=== PATIENT | male | born 1945 | race Caucasian/White ===

== ENCOUNTER 2020-08-25 09:55 | Outpatient (REF) | payer MEDICARE, SELFPAY ==
[2020-08-25 10:48] LABS: Glucose Urine UA NEG (NEG); Leukocyte Esterase Urine 2+ (NEG); Nitrite Urine POS (NEG); PH 6.5 (5.0-8.0); Specific Gravity - Urine 1.025 (1.005-1.025); UACC Culture Trigger YES; Urine Blood TRACE (NEG); Urine Ketones NEG (NEG); Urine Protein NEG (NEG-TRACE)
[2020-08-25 10:49] LABS: Appearance Urine CLOUDY; Color Urine YELLOW
[2020-08-25 10:52] LABS: MANUAL DIFF FLAG NO
[2020-08-25 10:56] LABS: Basophils Absolute Auto 0.1 X10*3/uL (0.0-0.2); Basophils Percent Auto 0.8 % (0-2); Eosinophils Absolute Auto 0.3 X10*3/uL (0.0-0.4); Eosinophils Percent Auto 4.3 % (0-4); Hemoglobin 15.9 g/dl (14.0-18.0); Imm Gran Abs Auto 0.03 X10*3/uL (0.00-0.03); Imm Gran Pct Auto 0.5 % (0.0-0.4); Lymphocytes Absolute Auto 1.7 X10*3/uL (1.2-4.9); Lymphocytes Percent Auto 28.1 % (20-40); Mean Corpuscular HGB Conc 31.8 g/dl (31.0-36.0); Mean Corpuscular Hemoglobin 28.2 pg (27.0-33.0); Mean Corpuscular Volume 88.8 fL (80-98); Mean Platelet Volume 10.3 fL (9.4-12.4); Monocytes Absolute Auto 0.6 X10*3/uL (0.1-1.2); Monocytes Percent Auto 9.8 % (2-11); Neutrophils Absolute Auto 3.4 X10*3/uL (2.0-8.3); Neutrophils Percent Auto 56.5 % (45-73); Platelet Count 198 X10*3/uL (160-400); Red Blood Count 5.63 X10*6/uL (4.60-5.80); Red Cell Distribution Width 14.8 % (11.0-16.0); White Blood Count 6.1 X10*3/uL (4.8-10.8)
[2020-08-25 10:59] LABS: Bacteria Urine 2+ /LPF; RBC Urine 0-2 /HPF (0); WBC Urine TNTC /HPF (0-4)
[2020-08-25 11:18] LABS: Alanine Aminotransferase 32 U/L (0-40); Albumin Level 4.3 g/dL (3.5-5.0); Alkaline Phosphatase 57 U/L (39-117); Anion Gap 12 (12-20); Aspartate Amino Transferase 25 U/L (5-37); Bilirubin Total 1.2 mg/dL (0.0-1.0); Blood Urea Nitrogen 24 mg/dL (9-16); Calcium 9.5 mg/dL (8.4-10.2); Carbon Dioxide 30 mmol/L (22-29); Chloride 105 mmol/L (96-108); Cholesterol 184 mg/dL; Estimated Glomerular Filt Rate > 60; Glucose Fasting 96 mg/dL (60-99); HDL Cholesterol 35 mg/dL; LDL Cholesterol Calculated 129 mg/dl; Potassium 4.1 mmol/L (3.3-5.1); Sodium 143 mmol/L (135-145); Total Protein 7.5 g/dL (6.5-8.0); Triglycerides 100 mg/dL
[2020-08-25 11:41] LABS: Prostate Specific Antigen 2.86 ng/mL (<0.05-4.0); TSH reflex Free T4 1.27 uIU/mL (0.32-4.0); Vitamin D 25-OH Total 24.5 ng/mL (>30)
== END 2020-08-25 09:56 | disposition home or self-care (01) ==
LOC: HO.LAB 09:55
PROVIDERS: PCP Internal Medicine; Visit Provider Internal Medicine
DX: Z00.00 Encounter for general adult medical examination without abnormal findings (principal); E55.9 Vitamin D deficiency, unspecified; E78.00 Pure hypercholesterolemia, unspecified; N40.0 Benign prostatic hyperplasia without lower urinary tract symptoms; I10 Essential (primary) hypertension
CPT/HCPCS: 36415; 80053; 80061; 81001; 81003; 82306; 84153; 84443; 85025; 87086

== ENCOUNTER 2022-11-14 10:33 | Emergency (ER) | payer MEDICARE, SELFPAY ==
[2022-11-14 10:57] VITALS: BP 159/99; PULSE 78; RESP 18; TEMP 36.6; O2SAT 97; BMI 26.1
--- NOTE | 2022-11-14 14:52 | ED_ITS ---
HPI - General Adult General Chief complaint: General Medical Stated complaint: sore throat Time Seen by Provider: 11/14/22 13:12 Source: patient and RN notes reviewed Mode of arrival: ambulatory Limitations: no limitations History of Present Illness HPI narrative: This is a 77-year-old male, with a past medical history of atrial fibrillation, presenting to the emergency department for evaluation of sore throat x3 days. Patient reports that since he has been in the emergency department his symptoms have improved. He states pain with swallowing, denies fevers, chills, cough, shortness of breath, chest pain, abdominal pain, nausea, vomiting, or diarrhea. He states that he took Tylenol for his symptoms which provided him without relief. No other complaints or concerns at this time. MD complaint: Sore throat Onset (ago): day(s) Severity: mild Quality: aching Pain Consistency: constant Relieving factors: none Exacerbating factors: none Associated symptoms: denies other symptoms Treatments prior to arrival: none Related Data Home Medications Medication Instructions Recorded Confirmed No Known Home Meds 10/16/21 10/27/22 Allergies Allergy/AdvReac Type Severity Reaction Status Date / Time No Known Allergies Allergy Verified 10/27/22 09:48 [No Known Allergies*] Review of Systems Review of Systems: Yes all other systems are reviewed and are negative PMFSH Past Medical History Medical History Atrial fibrillation Benign essential hypertension Benign prostatic hyperplasia Hyperlipidemia Hypertension Osteoarthritis of knees, bilateral Overactive bladder Overweight (BMI 25.0-29.9) Persistent atrial fibrillation Vitamin D deficiency Surgical History History of hernia surgery Family History Family History Mother No problems noted. Father No problems noted. Social History Social History Housing: Apartment Alcohol intake: never Patient Tobacco Use Status: Never used Tobacco Smoked in Last 30 Days: No e-Cigarette/Vaping Use: Never Used Second Hand Smoke Exposure: Yes Use of substances other than those prescribed or required for medical reasons: No Advance Directives: No Advance Directives Information Provided: Yes service: No Current occupational status: retired Cognitive needs: No Hearing needs: No Vision needs: Yes Physical Exam ED Vital Signs: Vital Signs - 24 hr 11/14/22 10:57 Temperature 98 F Pulse Rate 78 Respiratory Rate 18 Blood Pressure 159/99 H Pulse Oximetry 97 Oxygen Delivery Method Room Air BMI result Body Mass Index 26.1 Const Other: General: Awake, alert, and oriented X3. No acute distress. HEENT: Normal inspection. TMs are nonerythematous, nonbulging. Auditory canals are normal. Oropharynx mildly erythematous oral pharynx, uvula is midline, airways patent. No tonsillar hypertrophy or exudates. CVS: Normal heart rate and rhythm. Pulses normal. Respiratory: No respiratory distress. Lungs clear to auscultation bilaterally, no wheezes, rales, or Skin: Warm, dry, no rashes noted to exposed skin. Normal skin color. Normal skin turgor. rhonchi. Extremities: Normal to inspection Neuro: Oriented X 3. No motor deficit. No sensory deficit. Medical Decision Making Medical Decision Making MDM Narrative: This is a 77-year-old male presenting to the emergency department for evaluation of sore throat x4 days. On examination, patient has mildly erythematous oral pharynx, uvula is midline, airways patent. No tonsillar hypertrophy or exudates. COVID negative, strep negative. Symptoms likely due to virus, educated on appropriate symptomatic care. Patient understands and agrees with plan. Patient stable for discharge. Differential Diagnosis Differential Diagnoses: The differential diagnosis associated with the presentation includes Pharyngitis, tonsillar abscess, uvulitis, upper respiratory infection Lab Data 11/14/22 11:19 11/14/22 11:19 Labs: Lab Results 11/14/22 11/14/22 11/14/22 Range/Units 11:19 11:19 11:19 WBC 5.9 (4.8-10.8) X10*3/uL RBC 5.34 (4.60-5.80) X10*6/uL Hgb 15.1 (14.0-18.0) g/dl Hct 46.7 (42.0-52.0) % MCV 87.5 (80.0-98.0) fL MCH 28.3 (27.0-33.0) pg MCHC 32.3 (31.0-36.0) g/dl RDW 14.1 (11.0-16.0) % Plt Count 195 (160-400) X10*3/uL MPV 9.7 (9.4-12.4) fL Immature Gran % (Auto) 0.3 (0.0-0.4) % Neut % (Auto) 56.0 (45-73) % Lymph % (Auto) 25.5 (20-40) % Metcalfe % (Auto) 11.1 H (2-11) % Eos % (Auto) 5.7 H (0-4) % Baso % (Auto) 1.4 (0-2) % Lymph # (Auto) 1.5 (1.2-4.9) X10*3/uL Metcalfe # (Auto) 0.7 (0.1-1.2) X10*3/uL Eos # (Auto) 0.3 (0.0-0.4) X10*3/uL Baso # (Auto) 0.1 (0.0-0.2) X10*3/uL Abs Immat Gran (auto) 0.02 (0.00-0.03) X10*3/uL Absolute Neuts (auto) 3.3 (2.0-8.3) x10*3/uL Absolute Nucleated RBC 0.000 (0.0-0.012) X10*3/uL Nucleated RBC % (auto) 0.0 (0.0-0.2) /100WBC Sodium 141 (135-145) mmol/L Potassium 4.1 (3.3-5.1) mmol/L Chloride 107 (96-108) mmol/L Carbon Dioxide 26 (22-29) mmol/L Anion Gap 12 (12-20) BUN 17 H (9-16) mg/dL Creatinine 1.01 (0.5-1.4) mg/dL Estim Creat Clear Calc 60.2 Estimated GFR > 60 Random Glucose 98 (60-115) mg/dL Calcium 9.6 (8.4-10.2) mg/dL COVID-19 (ZOFIA) (Negative) COVID-19 Clin Com S. pyogenes GrpA TASHA Negative (Negative) 11/14/22 Range/Units 15:07 WBC (4.8-10.8) X10*3/uL RBC (4.60-5.80) X10*6/uL Hgb (14.0-18.0) g/dl Hct (42.0-52.0) % MCV (80.0-98.0) fL MCH (27.0-33.0) pg MCHC (31.0-36.0) g/dl RDW (11.0-16.0) % Plt Count (160-400) X10*3/uL MPV (9.4-12.4) fL Immature Gran % (Auto) (0.0-0.4) % Neut % (Auto) (45-73) % Lymph % (Auto) (20-40) % Metcalfe % (Auto) (2-11) % Eos % (Auto) (0-4) % Baso % (Auto) (0-2) % Lymph # (Auto) (1.2-4.9) X10*3/uL Metcalfe # (Auto) (0.1-1.2) X10*3/uL Eos # (Auto) (0.0-0.4) X10*3/uL Baso # (Auto) (0.0-0.2) X10*3/uL Abs Immat Gran (auto) (0.00-0.03) X10*3/uL Absolute Neuts (auto) (2.0-8.3) x10*3/uL Absolute Nucleated RBC (0.0-0.012) X10*3/uL Nucleated RBC % (auto) (0.0-0.2) /100WBC Sodium (135-145) mmol/L Potassium (3.3-5.1) mmol/L Chloride (96-108) mmol/L Carbon Dioxide (22-29) mmol/L Anion Gap (12-20) BUN (9-16) mg/dL Creatinine (0.5-1.4) mg/dL Estim Creat Clear Calc Estimated GFR Random Glucose (60-115) mg/dL Calcium (8.4-10.2) mg/dL COVID-19 (ZOFIA) Negative (Negative) COVID-19 Clin Com See Note S. pyogenes GrpA TASHA (Negative) Discharge Plan Discharge Clinical Impression: Pharyngitis Patient Disposition: Home, Self-Care Instructions: Pharyngitis (ED) Additional Instructions: Your labs were unremarkable. You tested negative for strep today. We tested due for COVID, I will call if your test results are positive. Please drink plenty of fluids get plenty of rest. Hot tea with honey, soups can help. Gargle with salt water. Take Tylenol as needed for pain. If any new or worsening symptoms occur including but not limited to worsening sore throat, difficulty breathing, difficulty swallowing, please return for re- evaluation. Prescriptions: No Action No Known Home Meds Interventions: ED Discharge Assessment Last Done: 11/14/22 15:05 Discharge Date/Time: 11/14/22 15:09
== END 2022-11-14 15:09 | disposition home or self-care (01) ==
PROVIDERS: Emergency Provider Emergency Medicine; PCP Internal Medicine
DX: J02.9 Acute pharyngitis, unspecified (principal); Z20.822 Contact with and (suspected) exposure to COVID-19; Z20.828 Contact with and (suspected) exposure to other viral communicable diseases; Z79.899 Other long term (current) drug therapy
CPT/HCPCS: 36415; 80048; 85025; 87635; 87651; 99283

== ENCOUNTER 2023-03-25 18:13 | Emergency (ER) | payer MEDICARE, SELFPAY ==
[2023-03-25 18:26] VITALS: BP 155/106; PULSE 90; RESP 16; TEMP 36.9; O2SAT 98; BMI 26.9
--- NOTE | 2023-03-25 18:31 | ED.URI ---
HPI - URI/Sore Throat General Chief Complaint: Upper Respiratory Symptoms Stated Complaint: cough, phlegmy, cold Related Data Home Medications Medication Instructions Recorded Confirmed No Known Home Meds 10/16/21 10/27/22 Allergies Allergy/AdvReac Type Severity Reaction Status Date / Time No Known Allergies Allergy Verified 10/27/22 09:48 [No Known Allergies*] [facility] Past Medical History Medical History Atrial fibrillation Benign essential hypertension Benign prostatic hyperplasia Hyperlipidemia Hypertension Osteoarthritis of knees, bilateral Overactive bladder Overweight (BMI 25.0-29.9) Persistent atrial fibrillation Vitamin D deficiency Surgical History History of hernia surgery Family History Family History Mother No problems noted. Father No problems noted. Social History Social History Housing: Apartment Alcohol intake: never Patient Tobacco Use Status: Never used Tobacco e-Cigarette/Vaping Use: Never Used Second Hand Smoke Exposure: Yes Advance Directives: No Advance Directives Information Provided: No service: No Current occupational status: retired Cognitive needs: No Hearing needs: No Vision needs: Yes Physical Exam Vital Signs: Vital Signs: Last Vital Signs Temp 98.4 F 03/25/23 18:26 Pulse 90 03/25/23 18:26 Resp 16 03/25/23 18:26 BP 155/106 H 03/25/23 18:26 Pulse Ox 98 03/25/23 18:26 O2 Del Method Room Air 03/25/23 18:26 BMI result Body Mass Index 26.9 Course Course Course Narrative: This is an RME: Additional HPI, ROS, PE not included below will be deferred to primary provider. This is a [id number] presenting to the emergency department with complaints of right earache, sore throat, productive cough since yesterday. Vital signs within normal limits. Oropharynx is mildly erythematous, no tonsillar hypertrophy or exudates. Uvula is midline. Further ER evaluation needed. Patient is well-appearing. Plan: Viral swabs, strep test Medical Decision Making Lab Data Labs: Lab Results 03/25/23 Range/Units 18:37 S. pyogenes GrpA TASHA Negative (Negative) Discharge Plan Discharge Prescriptions: No Action No Known Home Meds
[2023-03-25 18:50] LABS: IDNOW Serial# 08D9AD1C; Strep A Nucleic Acid Negative (Negative)
[2023-03-25 19:19] LABS: Influenza A PCR NEGATIVE (Negative); Influenza B PCR NEGATIVE (Negative); Resp Syncy Virus RNA Qual PCR NEGATIVE (Negative); SARS COV2 PCR INHOUSE POSITIVE (Negative)
--- NOTE | 2023-03-25 19:36 | ECG_ITS ---
Test Reason : DYSPNEA Blood Pressure : / mmHG Vent. Rate : 089 BPM Atrial Rate : 000 BPM P-R Int : 000 ms QRS Dur : 080 ms QT Int : 352 ms P-R-T Axes : 000 -28 040 degrees QTc Int : 428 ms Atrial fibrillation Abnormal ECG When compared with ECG of 04-FEB-2017 09:52, QT has shortened Referred By: Lucas Chaudhry Electronically Signed By:VINITA STOVER MD
--- NOTE | 2023-03-25 19:39 | ED.GENADULT ---
HPI - General Adult General Chief complaint: Upper Respiratory Symptoms Stated complaint: cough, phlegmy, cold Time Seen by Provider: 03/25/23 19:16 History of Present Illness HPI narrative: Patient is 78-year-old male who has had cold symptoms for about 24 hours. He has had a runny nose with clear nasal discharge. Mild cough. No particular sore throat. He does not know if he has had a fever. He feels mildly run down. Patient has a history of atrial fibrillation and he says he has been prescribed antihypertensive medications in the past but currently is not taking any medications for any medical problem. He says ?I march to a different drummer. ? Related Data Previous Rx's Medication Instructions Recorded nirmatrelvir 300 mg (150 mg See Rx Instructions PO .COMPLEX 03/25/23 x2)-ritonavir 100 mg tablet,dose #30 ea pack (Paxlovid) Allergies Allergy/AdvReac Type Severity Reaction Status Date / Time No Known Allergies Allergy Verified 10/27/22 09:48 [No Known Allergies*] Review of Systems Review of Systems: Yes all other systems are reviewed and are negative [facility] Past Medical History Medical History Atrial fibrillation Benign essential hypertension Benign prostatic hyperplasia Hyperlipidemia Hypertension Osteoarthritis of knees, bilateral Overactive bladder Overweight (BMI 25.0-29.9) Persistent atrial fibrillation Vitamin D deficiency Surgical History History of hernia surgery Family History Family History Mother No problems noted. Father No problems noted. Social History Social History Housing: Apartment Alcohol intake: never Patient Tobacco Use Status: Never used Tobacco e-Cigarette/Vaping Use: Never Used Second Hand Smoke Exposure: Yes Advance Directives: No Advance Directives Information Provided: No service: No Current occupational status: retired Cognitive needs: No Hearing needs: No Vision needs: Yes Physical Exam ED Vital Signs: Vital Signs - 24 hr 03/25/23 18:26 03/25/23 20:00 03/25/23 21:06 Temperature 98.4 F 99.8 F Pulse Rate 90 75 92 Respiratory Rate 16 20 16 Blood Pressure 155/106 H 190/106 H 184/106 H Pulse Oximetry 98 99 97 Oxygen Delivery Method Room Air Room Air Room Air BMI result Body Mass Index 26.9 Const Other: The patient is awake and alert. He does not appear acutely ill. He was blowing his nose occasionally and had clear nasal discharge. He did not seem short of breath. HENMT Other: Posterior pharynx unremarkable. Mucous membranes moist Eyes Other: Pupils are round equal, conjunctivae are clear, extraocular movements intact. Neck Other: Patient has some mild cervical adenopathy more prominent on the left side. Lymph nodes are mildly tender. Resp Other: Lungs are clear bilaterally. No increased work of breathing. Cardio Other: The patient has an irregular rate and rhythm. No definite murmur. GI Other: Abdomen is soft and nontender Skin Other: No rash Neuro Other: The patient is awake and alert. Face is symmetrical. Speech is clear. Moving all 4 extremities normally. Patient seems grossly neurologically intact. Extrem Other: No peripheral edema Medical Decision Making Medical Decision Making [facility] Narrative: The patient is a 78-year-old male who has a history of atrial fibrillation but is on no medications by his own choice. He now presents with 24 hours of respiratory symptoms and tested positive for COVID. His GFR is greater than 60. Clinically he looks well. He would like to be treated with Paxlovid. Since he is on no medications there will be no medication contraindications or changes to be made. His renal function is sufficient for full strength dosage. I have sent a prescription to the 24 hour pharmacy at [facility] on [address] in [place] as he would like to start this medication as soon as possible. The patient is here with his who also has COVID. Lab Data 03/25/23 20:07 Labs: Lab Results 03/25/23 03/25/23 Range/Units 18:37 20:07 Sodium 140 (135-145) mmol/L Potassium 3.9 (3.3-5.1) mmol/L Chloride 103 (96-108) mmol/L Carbon Dioxide 29 (22-29) mmol/L Anion Gap 12 (12-20) BUN 17 H (9-16) mg/dL Creatinine 1.07 (0.5-1.4) mg/dL Estim Creat Clear Calc 54.1 Estimated GFR > 60 Random Glucose 96 (60-115) mg/dL Calcium 9.8 (8.4-10.2) mg/dL Influenza Type A (PCR) NEGATIVE (Negative) Influenza Type B (PCR) NEGATIVE (Negative) RSV RNA Qual (PCR) NEGATIVE (Negative) SARS-CoV-2 RNA (RT-PCR) POSITIVE A (Negative) S. pyogenes GrpA TASHA Negative (Negative) Discharge Plan Discharge Clinical Impression: COVID Patient Disposition: Home, Self-Care Instructions: COVID-19 (Coronavirus Disease 2019) (ED) Additional Instructions: You have tested positive for COVID today. I have sent prescription for the anti COVID medication Paxlovif to a 24 hour pharmacy. This is the [facility] on [address] in [place]. please warehouse order picker the prescription this evening so that you can start this medication promptly. Please take the medication 2 times a day (approximately every 12 hours). Drink a lot of fluids. Stay in touch with your regular doctor for additional advice as needed. Return to the emergency room if significantly worse. Prescriptions: New Paxlovid 300 mg (150 mg x 2)-100 mg tablets,dose pack See Rx Instructions .ROUTE .COMPLEX Qty: 30 0RF Rx Instructions: take TWO 150 mg tablets of nirmatrelvir with ONE 100 mg tablet of ritonavir twice daily for 5 days Referrals: Rudy Mathis MD [Primary Care Provider] - Interventions: ED Discharge Assessment Last Done: 03/25/23 21:15
[2023-03-25 20:00] VITALS: BP 190/106; PULSE 75; RESP 20; O2SAT 99
--- NOTE | 2023-03-25 20:21 | PC.NURSE ---
Pt resting, unlabored resp, skin pwd, LS CTA. no cough, aware of plan for labs and paxlovid.
[2023-03-25 20:31] LABS: Anion Gap 12 (12-20); Blood Urea Nitrogen 17 mg/dL (9-16); Calcium 9.8 mg/dL (8.4-10.2); Carbon Dioxide 29 mmol/L (22-29); Chloride 103 mmol/L (96-108); Creatinine Clr Calc Pharmacy 54.1; Estimated Glomerular Filt Rate > 60; Glucose Random 96 mg/dL (60-115); Potassium 3.9 mmol/L (3.3-5.1); Sodium 140 mmol/L (135-145)
[2023-03-25 21:06] VITALS: BP 184/106; PULSE 92; RESP 16; TEMP 37.7; O2SAT 97
== END 2023-03-25 21:43 | disposition home or self-care (01) ==
PROVIDERS: Physician Assistant Medical; Emergency Provider Emergency Medicine; PCP Internal Medicine
DX: U07.1 COVID-19 (principal); I48.91 Unspecified atrial fibrillation; R06.02 Shortness of breath; R05.9 Cough, unspecified; R09.89 Other specified symptoms and signs involving the circulatory and respiratory systems; Z79.899 Other long term (current) drug therapy
CPT/HCPCS: 0241U; 36415; 80048; 87651; 93005; 99283; 99284

== ENCOUNTER 2023-04-21 07:01 | Outpatient (REF) | payer MEDICARE, SELFPAY ==
[2023-04-21 07:16] LABS: MANUAL DIFF FLAG NO
[2023-04-21 07:51] LABS: Basophils Absolute Auto 0.1 X10*3/uL (0.0-0.2); Basophils Percent Auto 1.3 % (0-2); Eosinophils Absolute Auto 0.4 X10*3/uL (0.0-0.4); Eosinophils Percent Auto 5.4 % (0-4); Hematocrit 47.4 % (42.0-52.0); Hemoglobin 15.6 g/dl (14.0-18.0); Imm Gran Abs Auto 0.03 X10*3/uL (0.00-0.03); Imm Gran Pct Auto 0.4 % (0.0-0.4); Lymphocytes Absolute Auto 2.1 X10*3/uL (1.2-4.9); Lymphocytes Percent Auto 29.5 % (20-40); Mean Corpuscular HGB Conc 32.9 g/dl (31.0-36.0); Mean Corpuscular Hemoglobin 29.1 pg (27.0-33.0); Mean Corpuscular Volume 88.3 fL (80.0-98.0); Mean Platelet Volume 10.4 fL (9.4-12.4); Monocytes Absolute Auto 0.8 X10*3/uL (0.1-1.2); Monocytes Percent Auto 11.7 % (2-11); Neutrophils Absolute Auto 3.7 x10*3/uL (2.0-8.3); Neutrophils Percent Auto 51.7 % (45-73); Platelet Count 208 X10*3/uL (160-400); Red Blood Count 5.37 X10*6/uL (4.60-5.80); Red Cell Distribution Width 14.8 % (11.0-16.0); White Blood Count 7.1 X10*3/uL (4.8-10.8)
[2023-04-21 08:28] LABS: Alanine Aminotransferase 24 U/L (0-40); Albumin Level 4.1 g/dL (3.5-5.0); Alkaline Phosphatase 64 U/L (39-117); Anion Gap 12 (12-20); Aspartate Amino Transferase 20 U/L (5-37); Bilirubin Total 0.6 mg/dL (0.0-1.0); Blood Urea Nitrogen 19 mg/dL (9-16); Calcium 9.5 mg/dL (8.4-10.2); Carbon Dioxide 27 mmol/L (22-29); Chloride 106 mmol/L (96-108); Cholesterol 177 mg/dL (<200); Estimated Glomerular Filt Rate > 60; Glucose Fasting 108 mg/dL (60-99); HDL Cholesterol 33 mg/dL (>40); LDL Cholesterol Calculated 120 mg/dL (<100); Potassium 4.1 mmol/L (3.3-5.1); Sodium 141 mmol/L (135-145); Total Protein 7.8 g/dL (6.5-8.0); Triglycerides 120 mg/dL (<150)
[2023-04-21 08:29] LABS: TSH reflex Free T4 2.13 uIU/mL (0.32-4.0); Vitamin D 25-OH Total 28.5 ng/mL (>30)
[2023-04-21 08:45] LABS: Folate 5.8 ng/mL (> or = 4.0); Prostate Specific Antigen Scr 5.34 ng/mL (<0.05-4.0); Vitamin B12 665 pg/mL (200-900)
[2023-04-21 09:02] LABS: Appearance Urine Turbid; Color Urine Yellow; Glucose Urine UA Negative (Negative); Leukocyte Esterase Urine Large (3+) (Negative); Nitrite Urine Negative (Negative); UMIC TRIGGER UACC YES; Urine Blood Small (1+) (Negative); Urine Ketones Negative (Negative); Urine Protein 100 (2+) mg/dL (Neg-Trace)
[2023-04-21 10:18] LABS: Bacteria Urine 4+ (None Seen); Squamous Epithelial Cell Urine 0-2 /HPF (0-2); UACC Culture Trigger YES; WBC Urine >50 /HPF (0-5)
== END 2023-04-21 07:02 | disposition home or self-care (01) ==
LOC: HO.LAB 07:01
PROVIDERS: PCP Internal Medicine; Visit Provider Internal Medicine
DX: Z00.00 Encounter for general adult medical examination without abnormal findings (principal); Z12.5 Encounter for screening for malignant neoplasm of prostate; E78.00 Pure hypercholesterolemia, unspecified; E53.8 Deficiency of other specified B group vitamins; I48.91 Unspecified atrial fibrillation; I10 Essential (primary) hypertension; E55.9 Vitamin D deficiency, unspecified; R30.0 Dysuria
CPT/HCPCS: 36415; 80053; 80061; 81001; 81003; 82306; 82607; 82746; 84153; 84443; 85025; 87086

== ENCOUNTER 2023-04-28 09:04 | Outpatient (AMB) | payer MEDICARE, SELFPAY ==
--- NOTE | 2023-04-28 09:09 | A.OFFPC_ITS ---
Vital Signs 04/28/23 09:10 Height 5 ft 8 in Weight 174 lb BMI 26.5 BP 158/102 H Blood Pressure Location Lt brachial Position Sitting Pulse 81 Pulse Source Pulse Oximeter Pulse Oximetry (%) 97 Oxygen Delivery Method Room Air Intake Visit Reasons: atrial fibrillation, HTN Food And Beverage Outlets Manager Required: No Accompanied by: Self / Same As Patient Allergies No Known Allergies [No Known Allergies*] Allergy (Verified 04/28/23 09:48) Medication List - Last Reconciled 04/28/23 by Rudy Mathis MD No Known Home Meds Tobacco use date assessed: 04/28/23 Fall risk assessment: No Falls in past year Last assessed Fall Risk: 04/28/23 Dental Screening Dental Screen Date: 04/28/23 Did you have a dental visit in the last 12 months?: No Did you have a dental problem in the last 6 months where you did not have access to dental care?: No Was dental information given to patient?: No HPI atrial fibrillation, HTN HPI Details Patient comes in today for his follow up visit States that he has been experiencing some urinary frequency and nocturia for the past few weeks; denies any dysuria Reports that he has been under some stress lately in helping deal with his 's psychiatric issues Relates occasional dizziness but denies any headaches He denies any chest pains, no shortness of breath No nausea /vomiting, no abdominal pain No change in bowel habits noted Had his follow-up labs done last week - to discuss his results [facility] Medical History (Updated 04/28/23 @ 09:58 by Rudy Mathis MD) Overweight (BMI 25.0-29.9) Vitamin D deficiency Osteoarthritis of knees, bilateral Persistent atrial fibrillation Benign essential hypertension Overactive bladder Benign prostatic hyperplasia Hyperlipidemia Surgical History History of hernia surgery Family History Mother No problems noted. Father No problems noted. Social History Housing: Apartment Alcohol intake: never Patient Tobacco Use Status: Never used Tobacco e-Cigarette/Vaping Use: Never Used Second Hand Smoke Exposure: Yes service: No Current occupational status: retired Cognitive needs: No Hearing needs: No Vision needs: Yes Questionnaire PHQ-9 Over the last 2 weeks, how often have you been bothered by any of the following problems? 1. Little interest or pleasure in doing things: not at all 2. Feeling down, depressed, or hopeless: not at all 3. Trouble falling or staying asleep, or sleeping too much: not at all 4. Feeling tired or having little energy: not at all 5. Poor appetite or overeating: not at all 6. Feeling bad about yourself - or that you are a failure or have let yourself or your family down: not at all 7. Trouble concentrating on things, such as reading the newspaper or watching television: not at all 8. Moving or speaking so slowly that other people could have noticed. Or the opposite - being so fidgety or restless that you have been moving around a lot more than usual: not at all 9. Thoughts that you would be better off or of hurting yourself in some way: not at all Total score: 0 Depression Screening Interpretation: Negative Depression Screening Done: Yes 47418 - PHQ-9 Billing: Yes Source: Developed by Drs. Santo Hayes, Carol Valdovinos, Navi Heard and colleagues, with an educational caroline from [employer]. Thrive Questionnaire Date Thrive assessed: 04/28/23 I am a: Patient What is your living situation today?: I have a steady place to live Within the past 12 months, did the food you bought not last and you didn't have the money to get more?: Never true Within the past 12 months, did you worry whether your food would run out before you got money to buy more?: Never true Do you have trouble paying for medicines?: No Do you have trouble getting transportation to medical appointments?: No Do you have trouble paying your heating and electricity bill?: No Do you have trouble taking care of your child, family member or friend?: No Do you have trouble with day-to-day activities such as bathing, preparing meals, shopping, managing finances, etc.?: No Are you currently unemployed and looking for a job?: No Are you interested in more education?: No Please select the resources that you would like help with: None Currently or been in a relationship where the following occur: no concerns reported AUDIT C Alcohol Use Questionnaire (AUDIT-C) 1. How often do you have a drink containing alcohol?: Never 3. How often do you have six or more drinks on one occasion?: Never Total Score: 0 Score Reviewed/Action Taken: Yes VERNON-7 AMB Questionnaire VERNON-7 Date VERNON - 7 assessed: 04/28/23 Feeling nervous, anxious, or on edge: 0 = Not at all Not being able to stop or control worryin = Not at all Worrying too much about different things: 0 = Not at all Trouble relaxin = Not at all Being so restless that it is hard to sit still: 0 = Not at all Becoming easily annoyed or irritable: 0 = Not at all Feeling afraid as if something awful might happen: 0 = Not at all Total VERNON-7 score (0-4 normal; 5-9 mild; 10-14 moderate; 15-21 severe): 0 Source: Developed by Drs. Santo Hayes, Carol Valdovinos, Navi Heard and colleagues, with an educational caroline from [employer]. Review of Systems Const Denies chills, Reports fatigue, Denies fever(s) and Denies headache(s) ENT Denies dysphagia, Reports dizziness (on and off), Denies otalgia, Denies headache(s), Denies neck pain, Denies odynophagia and Denies sore throat Card Denies chest pain, Denies palpitations and Denies dyspnea Resp Denies cough and Denies dyspnea GI Denies abdominal pain, Denies constipation, Denies dysphagia, Denies heartburn, Denies diarrhea, Denies nausea, Denies odynophagia and Denies vomiting Denies difficulty urinating, Denies dysuria, Reports nocturia and Reports urinary frequency Musc Denies neck pain Skin/Breast Denies rash Neuro Reports dizziness (on and off) and Denies headache(s) Endo Reports fatigue and Denies palpitations Physical exam (Primary Care) Vital Signs: Last Vital Signs Pulse 81 04/28/23 09:10 BP 158/102 H 04/28/23 09:10 Pulse Ox 97 04/28/23 09:10 Oxygen Delivery Method Room Air 04/28/23 09:10 BMI result Body Mass Index 26.5 Tobacco/Smoking Status: Tobacco use Status Tobacco use date assessed 04/28/23 04/28/23 09:17 Patient Tobacco Use Status Never used Tobacco 04/28/23 09:17 e-Cigarette/Vaping Use Never Used 04/28/23 09:17 PHQ-9: PHQ-9 Score PHQ-9: Total score 0 04/28/23 09:51 Depression Screening Interpretation: Negative Thrive Assessment: Date of Thrive Assessment Date Thrive assessed 04/28/23 04/28/23 09:17 Currently or been in a relationship where the following occur: no concerns reported Const General: no acute distress and alert HENMT Ears: TM's normal bilaterally and EAC's normal Throat: Yes posterior oropharynx normal and Yes tonsils normal (no TP congestion) Neck Neck: Yes no lymphadenopathy and Yes supple Thyroid: Thyroid normal Resp Auscultation: clear to auscultation bilaterally, no rales and no wheezes Cardio Rate: regular rate Rhythm: abnormal rhythm irregularly irregular Heart sounds: no murmurs GI Palpation (GI): Soft to palpation and nontender Auscultation: normal bowel sounds General: Yes no CVA tenderness Back/Spine/Pelvis Back: no CVA tenderness Skin Rashes: no rashes Extrem General: Yes no clubbing, cyanosis or edema Results Reviewed Results Reviewed: Laboratory Tests 04/21/23 04/21/23 04/21/23 07:06 07:14 07:14 WBC 7.1 Hgb 15.6 Hct 47.4 Plt Count 208 Sodium 141 Potassium 4.1 Creatinine 1.00 Estimated GFR > 60 Fasting Glucose 108 H Calcium 9.5 AST 20 ALT 24 Triglycerides 120 Cholesterol 177 LDL Cholesterol, Calc 120 H HDL Cholesterol 33 L PSA Screen 5.34 H Vitamin B12 665 25-OH Vitamin D Total 28.5 L TSH 2.13 Ur Specific [place] 1.020 Urine Protein 100 (2+) H Urine Glucose (UA) Negative Urine Blood Small (1+) H Assessment and Plan Assessment & Plan (1) Persistent atrial fibrillation: Code(s): I48.19 - Other persistent atrial fibrillation Plan: Patient is currently still in atrial fibrillation Has declined taking Rx in the past, including anticoagulants and beta blockers Was on low dose Aspirin daily at one point but he also self-discontinued it although he is now amenable to starting on meds again Will send him for repeat echocardiogram for follow up; echocardiogram done back in 2017 showed a mildly increased left ventricular wall thickness, with visually estimated EF between 60 to 65%, mild biatrial enlargement, mild aortic r egurgiation, mild mitral regurgitation and normal right ventricular systolic pressure He currently has a [id number] score of 3 so anticoagulation is indicated He is now agreeable to starting on Rx as long as it is covered on insurance - will start him on Apixaban 2.5 mg BID He declines offer to start him back on a beta martinez at this time (2) Elevated PSA: Code(s): R97.20 - Elevated prostate specific antigen [PSA] Plan: Results of his labs done last week reviewed and discussed with patient - advised that his PSA has effectively doubled from a couple of years ago and is now >5.0 As he has also been experiencing some urinary symptoms, mostly nocturia/urinary frequency, for a while now, will refer him to urology for further evaluation and management Will also start him in the meantime on Tamsulosin 0.4 mg Q HS (3) Benign essential hypertension: Code(s): I10 - Essential (primary) hypertension Plan: His BP is currently elevated Reinforced low sodium diet - goal is systolic BP of at least 130 to 140 mm or less Patient is presently not on any Rx for his BP (by choice) - patient recalls that he felt worse when he was started on Rx for his blood pressure in the past and he prefers to continue controlling his BP without Rx as much as possible (4) Osteoarthritis of knees, bilateral: Code(s): M17.0 - Bilateral primary osteoarthritis of knee Qualifiers: Osteoarthritis type: primary Qualified Code(s): M17.0 - Bilateral primary osteoarthritis of knee Plan: States that his knee pain remain mostly manageable and he just takes some OTC Tylenol as needed with (+) relief No other intervention is needed or requested for at this time (5) Vitamin D deficiency: Code(s): E55.9 - Vitamin D deficiency, unspecified Plan: Was on Vitamin D3 1000 units daily in the past but patient stopped taking this a while back Advised that his Vitamin D level is still low on his recent labs and he should consider starting back on some OTC Vitamin D supplements daily (6) Overweight (BMI 25.0-29.9): Code(s): E66.3 - Overweight Plan: Reinforced diet/exercise as tolerated/lose weight Plan Follow up in 3 months Orders: Orders CA echo transthoracic complete 04/28/23 I48.19 - Other persistent atrial fibrillation Referrals Urology Referral R35.0 - Frequency of micturition, R97.20 - Elevated prostate specific antigen [PSA] Medications: New tamsulosin 0.4 mg PO BEDTIME 90 days 90 caps 1RF N40.1 - Benign prostatic hyperplasia with lower urinary tract symptoms, R35.1 - Nocturia Eliquis (apixaban) 2.5 mg PO BID 30 days 60 tabs 3RF NS I48.19 - Other persistent atrial fibrillation Coding Level of Care Code Est Pt Level 4 (68976) Diagnoses Persistent atrial fibrillation I48.19 Elevated PSA R97.20 Benign essential hypertension I10 Primary osteoarthritis of both knees M17.0 Osteoarthritis type: primary Vitamin D deficiency E55.9 Overweight (BMI 25.0-29.9) E66.3
[2023-04-28 09:10] VITALS: BP 158/102; PULSE 81; O2SAT 97; BMI 26.5
== END 2023-04-28 10:03 | disposition home or self-care (01) ==
PROVIDERS: PCP Internal Medicine; Visit Provider Internal Medicine
DX: I48.19 Other persistent atrial fibrillation (principal); R97.20 Elevated prostate specific antigen [PSA]; I10 Essential (primary) hypertension; M17.0 Bilateral primary osteoarthritis of knee; E55.9 Vitamin D deficiency, unspecified; E66.3 Overweight
CPT/HCPCS: 99214

== ENCOUNTER → 2023-05-17 12:54 | Outpatient (REF) | payer MEDICARE, SELFPAY ==
--- NOTE | 2023-05-17 12:57 | CA_ITS ---
Transthoracic Echocardiogram Patient (Last, First, Middle): Lane Raya E Gender: Male Date of : 1945 Age: 78 Procedure Date: 05/17/2023 Procedure Type: Transthoracic Echocardiogram Location: OP Height: 172.72 cm Weight: 79.38 kg BSA: 1.93 m2 Heart Rate: bpm BP: 166 / 90 mmHg Senior Core Java Developer: TO Referring MD: Rudy Mathis MD Digital Strategy Manager: Nomi Cullen MD Symptoms: I48.19 - Other persistent atrial fibrillation Study Quality: Fair Conclusions: - 1. Normal LV ejection fraction 55-60% 2. Mildly dilated left atrium 3. Mild aortic regurgitation 4. Mildly dilated ascending aorta 3.8 cm 5. Normal RV systolic pressure with mildly elevated right atrial pressures 6. No gross pericardial effusion Findings Left Ventricle Normal left ventricular size, thickness, and systolic function. The visually estimated ejection fraction is between 55-60%. Diastolic function is indeterminate on the basis of available data. Right Ventricle Normal right ventricular cavity size and systolic function. Atria The left atrium is mildly dilated. There is no evidence of interatrial shunt. The right atrium is likely dilated. Aortic Valve There is mild calcification of the aortic valve. There is no aortic valve stenosis. There is mild aortic valve regurgitation. Mitral Valve There is mild anterior and posterior mitral leaflet thickening. There is trace mitral valve regurgitation. There is no mitral valve stenosis. Pulmonic Valve The pulmonic valve is likely normal. There is trace pulmonic valve regurgitation. Tricuspid Valve Normal tricuspid valve structure. There is mild tricuspid valve regurgitation. The right ventricular systolic pressure is normal. The right ventricular systolic pressure is 28 mmHg. Mildly elevated right atrial pressure. There is no evidence of pulmonary hypertension. Great Vessels The pulmonary artery was not well visualized. There is mild dilatation of the ascending aorta measuring 3.80 cm. Venous The inferior vena cava is mildly dilated and collapses greater than 50% with inspiration. Pericardium/Pleural There is no evidence of pericardial effusion. Prior Study Comparison Changes noted compared to prior study dated: 02/15/2017. Ascending aorta is mildly enlarged Measurements 2D Linear Measurements IVSd: 1.36 0.6-0.9/0.6-1.0 cm LVIDd: 3.72 3.9-5.3/4.2-5.9 cm LVIDd Index: 1.93 2.4-3.2/2.2-3.1 cm/m2 LVIDs: 2.62 2.0-3.6 cm LVPWd: 1.03 0.7-1.1 cm LA Diam: 3.60 2.7-3.8/3.0-4.0 cm LAIDs Index: 1.87 1.5-2.3 cm/m2 LV Mass: 183.69 67-162/88-224 g LV Mass Index: 95.17 43-95/49-115 g/m2 LVOT Diam: 2.10 3.0+(-)1.3 cm 2D Systolic Function EF 4C: 57.90 >55% EF 2C: 57.60 >55% EF BiP: 58.90 >55% Mitral Valve MV Pk E: 0.75 MV Decel Time: 195.00 E'Lateral: 7.14 E'Medial: 7.07 E/E' Med: 10.70 E/E' Lat: 10.60 PHT: 57.00 MVA PHT: 3.86 Decel [place]: 3.90 Aortic Valve AoV Pk Xander: 1.11 AoV Pk Grad: 5.00 LVOT LVOT Pk Xander: 0.67 LVOT Mn Xander: 0.47 LVOT VTI: 0.14 LVOT Pk Grad: 2.00 LVOT Mn Grad: 1.00 LVOT Diam: 2.10 LVOT Area: 3.46 Diastolic Function MV Pk E: 0.75 E'Medial: 7.07 E/E' Med: 10.70 E' Laterial: 7.14 E/E' Lat: 10.60 Right Ventricle TAPSE (mm): 16.70 TVS' Xander: 10.50 Tricuspid Valve TR Pk Xander: 2.23 TR Pk Grad: 20.00 RA Press: 8.00 RVSP: 28.00 Great Vessels Aorta Sinus of Valsalva: 3.16 2.0-3.[address] [place]: 3.00 1.7-3.4 cm Ao Asc: 3.80 2.1-3.4 cm Updated in Other Vendor System with Status of Final Nomi Cullen MD electronically signed on 05/18/2023 4:15:06 PM with status of Final
== END ==
LOC: HO.CARD 12:54
PROVIDERS: PCP Internal Medicine; Visit Provider Internal Medicine
DX: I48.19 Other persistent atrial fibrillation (principal)
CPT/HCPCS: 93306

== ENCOUNTER → 2023-05-17 12:57 | Outpatient (BNV) | payer MEDICARE, SELFPAY | PROVIDERS: PCP Internal Medicine; Visit Provider Internal Medicine Cardiovascular Disease | DX: I35.1 Nonrheumatic aortic (valve) insufficiency (principal); I48.19 Other persistent atrial fibrillation | CPT/HCPCS: 93306 ==

== ENCOUNTER 2023-06-08 11:08 | Outpatient (REF) | payer MEDICARE, SELFPAY | END 2023-06-08 11:09 | disposition home or self-care (01) | LOC: HO.LNP 11:08 | PROVIDERS: PCP Internal Medicine; Visit Provider Nurse Practitioner Family | DX: N39.0 Urinary tract infection, site not specified (principal); R97.20 Elevated prostate specific antigen [PSA] | CPT/HCPCS: 51798; 81003; 87086; 99202 ==

== ENCOUNTER 2023-06-08 11:08 | Outpatient (AMB) | payer MEDICARE, SELFPAY ==
--- NOTE | 2023-06-08 11:08 | MHC.OFFVIS ---
Intake Intake Visit Reasons: Elevated PSA/frequency of micturition Intake Note: New Patient presents for initial visit Elevated PSA and Urinary Frequency Last PSA: 04/21/23 (5.34) Urology Medications: Tamsulosin Blood Thinner: Eliquis PVR: 18ml's Certified Surgical Technician Required: No Accompanied by: Self / Same As Patient Allergies No Known Allergies [No Known Allergies*] Allergy (Verified 06/08/23 21:06) Medication List - Last [facility] (Blood Pressure Kit) As directed Eliquis (apixaban) 2.5 mg PO BID 30 days NS sulfamethoxazole-trimethoprim 800-160 mg (Bactrim DS) 1 tab PO BID 7 days tamsulosin 0.4 mg PO BEDTIME 90 days HPI HPI Comments History of Present Illness Details Lane is a very pleasant 78-year-old male patient of Dr. Mathis. He has a PMH of vitamin-D deficiency, osteoarthritis, atrial fibrillation, and hyperlipidemia. He presents to the office today as a new patient for a patient today. PSA 04/30--5.3. Discussed at length potential causes for elevated PSA. He reports having been on Flomax for lower urinary tract symptoms and feels this has been helpful. In office urinalysis results reviewed with the patient today. 3+ leukocytes positive nitrates. When asked he denies any UTI like symptoms. He denies urinary urgency, urinary frequency, incontinence, nocturia, hematuria, dysuria, foul smelling urine, changes to urinary stream, flank pain, fever, and or chills. He is happy with his current voiding parameters on 0.4mg of flomax daily. Discussed awaiting redraw of PSA given potential urinary tract infection and likely to be elevated. Discussed obtaining retroperitoneal ultrasound for further assessment evaluation. PVR 18 mL. Discussed at length potential causes for urinary tract infection. He otherwise offers no other issues or concerns at this time. FORMERLY [facility], [facility] Medical History Overweight (BMI 25.0-29.9) Vitamin D deficiency Osteoarthritis of knees, bilateral Persistent atrial fibrillation Benign essential hypertension Overactive bladder Benign prostatic hyperplasia Hyperlipidemia Surgical History History of hernia surgery Family History Mother No problems noted. Father No problems noted. Social History Housing: Apartment Alcohol intake: never Patient Tobacco Use Status: Never used Tobacco e-Cigarette/Vaping Use: Never Used Second Hand Smoke Exposure: Yes service: No Current occupational status: retired Cognitive needs: No Hearing needs: No Vision needs: Yes Review of Systems Const Reports no additional complaints Eyes Reports no additional complaints ENT Reports no additional complaints Card Reports as per HPI Resp Reports no additional complaints GI Reports no additional complaints Reports as per HPI Musc Reports as per HPI Neuro Reports no additional complaints Psych Reports no additional complaints Endo Reports no additional complaints Hayden/Lymph Reports no additional complaints Aller/Immun Reports no additional complaints Physical Exam Const General: cooperative, comfortable, no acute distress, well developed, alert and awake Orientation/consciousness: patient oriented x3 Limitations: no limitations HEENT Head: Yes normal to inspection, Yes normocephalic and Yes atraumatic Ears: hearing grossly normal bilaterally Eyes General: appearance normal, both eyes and all related structures Neck Neck: Yes normal visual inspection and Yes trachea midline Chest Chest palpation & inspection: normal inspection of the chest Resp Effort & Inspection: normal respiratory effort and able to speak in complete sentences Cardio Rate: regular rate GI Inspection: Yes normal to inspection General: Yes no CVA tenderness Back/Spine/Pelvis Back: no CVA tenderness Skin General skin exam: no rashes or lesions noted Neuro General: patient oriented x3 Extrem General: Yes normal to inspection Psych Appearance: grossly normal and well kempt Mental Status: mental status grossly normal Speech and movement: Normal speech and movement present and Clear speech present Affect: normal affect Attitude: cooperative Thought process: Normal thought process present Thought content: Normal thought content present Insight: Fair insight present (Psych) Judgement: Fair judgement present (Psych) Office Procedures Post Void Residual Post Residual Void Post Void Residual (PVR): 18 [id number] Void Residual by ultrasound Results AMB Urinalysis, Automated UA Leukoctes 500 Nataliya/uL Last Edit by Precious Steel on 06/08/23 11:26 UA Nitrite Positive Last Edit by Precious Steel on 06/08/23 11:26 UA Urobilinogen 0.2 mg/dL Last Edit by Precious Steel on 06/08/23 11:26 UA Protein 30 mg/dL Last Edit by Precious Steel on 06/08/23 11:26 UA pH 6.0 Last Edit by Precious Steel on 06/08/23 11:26 UA Blood 80 Darío/uL Last Edit by Precious Steel on 06/08/23 11:26 UA Specific [place] 1.020 Last Edit by Precious Steel on 06/08/23 11:26 UA Ketone Negative Last Edit by Precious Steel on 06/08/23 11:26 UA Bilirubin 0 mg/dL Last Edit by Precious Steel on 06/08/23 11:26 UA Glucose 0 mg/dL Last Edit by Precious Steel on 06/08/23 11:26 Results Reviewed Results Reviewed: Laboratory Last Values Urine pH (Auto) 6.0 06/08/23 11:10 Specific [place] (Auto) 1.020 06/08/23 11:10 Urine Protein (Auto) 30 mg/dL 06/08/23 11:10 Glucose (UA)(Auto) 0 mg/dL 06/08/23 11:10 Urine Ketones (Auto) Negative 06/08/23 11:10 Urine Blood (Auto) 80 Darío/uL 06/08/23 11:10 Urine Nitrite (Auto) Positive 06/08/23 11:10 Urine Bilirubin (Auto) 0 mg/dL 06/08/23 11:10 Urine Urobilinogen (Auto) 0.2 mg/dL 06/08/23 11:10 Leukocyte Esterase (Auto) 500 Nataliya/uL 06/08/23 11:10 Assessment & Plan Assessment & Plan (1) Urinary tract infection: Code(s): N39.0 - Urinary tract infection, site not specified (2) Elevated PSA: Code(s): R97.20 - Elevated prostate specific antigen [PSA] Plan In office urinalysis results reviewed with the patient today; as noted above; will send for urine culture. Discussed at length potential causes for elevated PSA. Discussed at length potential causes for urinary tract infection. PVR 18 mL. Start Bactrim as discussed and prescribed. Discussed obtaining redraw of PSA status post treatement of UTI; Discussed UTI could potential cause elevated PSA will reassess PSA once treatment is completed. In approximately 6-8 weeks Will obtain retroperitoneal ultrasound for further assessment evaluation. Patient reports be happy with current voiding parameters on Flomax 0.4 mg daily; will continue. Follow-up in 1 month with imaging to be completed prior; or sooner with any issues, concerns, and or questions. Orders: Orders AMB Urinalysis Automated Today Z13.9 - Encounter for screening, unspecified AMB Post Void Residual by ultrasound Today R35.0 - Frequency of micturition US retroperitoneal comp Today N39.0 - Urinary tract infection, site not specified Urine Culture Today N39.0 - Urinary tract infection, site not specified Medications: New sulfamethoxazole-trimethoprim 800-160 mg (Bactrim DS) 1 tab PO BID 7 days 14 tabs 0RF N39.0 - Urinary tract infection, site not specified Patient Instructions: The patient had an opportunity to ask questions regarding the treatment plan. All questions were answered. Physical exam, labs, and imaging were discussed and reviewed in detail. As well as risks, benefits, and discussion of treatment choices. No major barriers to understanding were identified. The patient expressed understanding and agreement with the above treatment plan. The patient was made aware they should contact our office by phone for worsening of their current condition, the appearance of new symptoms, or with any questions or concerns. Compliance is encouraged with any medications and follow up testing that is ordered. It is a privilege to be allowed the opportunity to participate in? your urological care.? Again, if you have any questions or concerns If you have any questions or concerns please do not hesitate to contact me. The office is [phone]. This note is constructed using voice recognition software. While every effort has been made to ensure accuracy artificial stone applicator errors may have been included. Yours sincerely, MARIA M Roberson Coding Level of Care Code New Pt Level 4 (73898) Diagnoses Urinary tract infection N39.0 Elevated PSA R97.20 CPT Codes Post Residual Void - PVR CPT Code: 21820-Sdzy Void Residual by ultrasound ([id number])
== END 2023-06-08 11:57 | disposition home or self-care (01) ==
PROVIDERS: PCP Internal Medicine; Visit Provider Nurse Practitioner Family
DX: N39.0 Urinary tract infection, site not specified (principal); R97.20 Elevated prostate specific antigen [PSA]
CPT/HCPCS: 99204

== ENCOUNTER 2023-07-01 13:43 | Outpatient (REF) | payer MEDICARE, SELFPAY ==
--- NOTE | ~2023-07-01 | US_ITS ---
EXAMINATION: US RETROPERITONEAL COMPLETE (RENAL) CLINICAL INFORMATION: Urinary tract infection, site not specified. COMPARISON: Radiograph abdomen 10/11/2016. TECHNIQUE: Real-time imaging of the kidneys and bladder. FINDINGS: RIGHT KIDNEY: 10.1 x 4.8 x 5.5 cm (SAG x AP x TRV). The kidney is normal in size, contour, and echogenicity. Renal cortical thickness is normal. No focal parenchymal lesions or hydronephrosis. There appears to be a 0.5 cm echogenic calyceal stone in region of the [id number] pole (image 36 of 50). LEFT KIDNEY: 10.5 x 5.4 x 5.9 cm (SAG x AP x TRV). The kidney is normal in size, contour, and echogenicity. Renal cortical thickness is normal. No calculi, hydronephrosis or focal parenchymal lesions. BLADDER: The bladder wall has a slightly thickened, trabeculated appearance. Correlate for any clinical signs/symptoms of bladder outlet pathology. Bilateral ureteral jets are demonstrated. Prevoid bladder volume is 298 mL. Postvoid bladder volume is 118 mL. No evidence of bladder mass or stone. ADDITIONAL FINDINGS: Note that the prostate gland is not adequately visualized for acquisition of an accurate size measurement. There is no pelvic free fluid. US/US retroperitoneal comp IMPRESSION: * There appears to be a solitary stone of the left kidney. * No hydronephrosis. Otherwise, kidneys are unremarkable. * The urinary bladder wall has a mildly thickened, trabeculated appearance. This could be a manifestation of a chronic partial bladder outlet obstruction.
== END 2023-07-01 13:44 | disposition home or self-care (01) ==
LOC: HO.US 13:43
PROVIDERS: PCP Internal Medicine; Visit Provider Nurse Practitioner Family
DX: N39.0 Urinary tract infection, site not specified (principal)
CPT/HCPCS: 76770

== ENCOUNTER 2023-07-15 10:02 | Outpatient (AMB) | payer MEDICARE, SELFPAY ==
--- NOTE | 2023-07-15 10:31 | MHC.OFFVIS ---
Intake Intake Visit Reasons: 4w/US Intake Note: Patient presents for follow up visit for Elevated PSA, Urinary Frequency, and Ultrasound Imagin07/01/22 Urology Medications: Tamsulosin Blood Thinner: Eliquis PVR: 11ml's Water Mangle Tender Required: No Accompanied by: Self / Same As Patient Allergies No Known Allergies [No Known Allergies*] Allergy (Verified 07/15/23 11:00) Medication List - Last Reconciled 07/15/23 by MARIA M Roberson blood pressure monitor (Blood Pressure Kit) As directed Eliquis (apixaban) 2.5 mg PO BID 30 days NS tamsulosin 0.4 mg PO BEDTIME 90 days HPI HPI Comments History of Present Illness Details Lane is a very pleasant 78-year-old male patient of Dr. Mathis. He has a PMH of vitamin-D deficiency, osteoarthritis, atrial fibrillation, and hyperlipidemia. He presents to the office today for follow-up. Of note, patient was seen approximately 6 weeks ago as a new patient for an elevated PSA at which time a retroperitoneal ultrasound was ordered for further assessment evaluation. Recent retroperitoneal ultrasound results reviewed with the patient today. Right kidney with no lesions or hydronephrosis. There appears to be a 0.5 cm echogenic calyceal stone in the region of the mid to lower pole. Left kidney with no calculi, lesions, and or hydronephrosis noted. The bladder wall is slightly thickened, trabeculated appearance. Bilateral ureteral jets are demonstrated. Pre void bladder volume is approximately 300 mL. Postvoid bladder volume is approximately 120 mL. No evidence of bladder mass or stone. Prostate measures approximately 37 mL. Discussed at length potential causes for elevated PSA. He reports be happy with current voiding parameters on 0.4 mg of Flomax daily. In office urinalysis results reviewed with the patient today. PVR 11 mL. Discussed obtaining redraw of PSA with no sex the night before, no heavy lifting 1-2 days prior, and no caffeine morning of lab draw. Discussed possible treatment options of elevated PSA however will await labs for further assessment. [facility] offered however [facility] Medical History Overweight (BMI 25.0-29.9) Vitamin D deficiency Osteoarthritis of knees, bilateral Persistent atrial fibrillation Benign essential hypertension Overactive bladder Benign prostatic hyperplasia Hyperlipidemia Surgical History History of hernia surgery Family History Mother No problems noted. Father No problems noted. Social History Housing: Apartment Alcohol intake: never Patient Tobacco Use Status: Never used Tobacco e-Cigarette/Vaping Use: Never Used Second Hand Smoke Exposure: Yes service: No Current occupational status: retired Cognitive needs: No Hearing needs: No Vision needs: Yes Review of Systems Const Reports no additional complaints Eyes Reports no additional complaints ENT Reports no additional complaints Card Reports as per HPI Resp Reports no additional complaints GI Reports no additional complaints Reports as per HPI Musc Reports as per HPI Neuro Reports no additional complaints Psych Reports no additional complaints Endo Reports no additional complaints Hayden/Lymph Reports no additional complaints Aller/Immun Reports no additional complaints Physical Exam Const General: cooperative, comfortable, no acute distress, well developed, alert and awake Orientation/consciousness: patient oriented x3 Limitations: no limitations HEENT Head: Yes normal to inspection, Yes normocephalic and Yes atraumatic Ears: hearing grossly normal bilaterally Eyes General: appearance normal, both eyes and all related structures Neck Neck: Yes normal visual inspection and Yes trachea midline Chest Chest palpation & inspection: normal inspection of the chest Resp Effort & Inspection: normal respiratory effort and able to speak in complete sentences Cardio Rate: regular rate GI Inspection: Yes normal to inspection General: Yes no CVA tenderness Back/Spine/Pelvis Back: no CVA tenderness Skin General skin exam: no rashes or lesions noted Neuro General: patient oriented x3 Extrem General: Yes normal to inspection Psych Appearance: grossly normal and well kempt Mental Status: mental status grossly normal Speech and movement: Normal speech and movement present and Clear speech present Affect: normal affect Attitude: cooperative Thought process: Normal thought process present Thought content: Normal thought content present Insight: Fair insight present (Psych) Judgement: Fair judgement present (Psych) Office Procedures Post Void Residual Post Residual Void Post Void Residual (PVR): 11 20229-Wewq Void Residual by ultrasound Results AMB Urinalysis, Automated UA Leukoctes 0 Nataliya/uL Last Edit by Precious Steel on 07/15/23 10:48 UA Nitrite Negative Last Edit by Precious Steel on 07/15/23 10:48 UA Urobilinogen 0.2 mg/dL Last Edit by Andrewyce Milvia on 07/15/23 10:48 UA Protein 15 mg/dL Last Edit by Branddawson Steel on 07/15/23 10:48 UA pH 5.5 Last Edit by Andrewyce Milvia on 07/15/23 10:48 UA Blood 0 Darío/uL Last Edit by Andrewyce Milvia on 07/15/23 10:48 UA Specific [place] 1.030 Last Edit by Brandycaly Steel on 07/15/23 10:48 UA Ketone Negative Last Edit by Precious Steel on 07/15/23 10:48 UA Bilirubin 0 mg/dL Last Edit by Precious Steel on 07/15/23 10:48 UA Glucose 0 mg/dL Last Edit by Precious Steel on 07/15/23 10:48 Results Reviewed Results Reviewed: Laboratory Last Values Urine pH (Auto) 5.5 07/15/23 10:37 Specific [place] (Auto) 1.030 07/15/23 10:37 Urine Protein (Auto) 15 mg/dL 07/15/23 10:37 Glucose (UA)(Auto) 0 mg/dL 07/15/23 10:37 Urine Ketones (Auto) Negative 07/15/23 10:37 Urine Blood (Auto) 0 Darío/uL 07/15/23 10:37 Urine Nitrite (Auto) Negative 07/15/23 10:37 Urine Bilirubin (Auto) 0 mg/dL 07/15/23 10:37 Urine Urobilinogen (Auto) 0.2 mg/dL 07/15/23 10:37 Leukocyte Esterase (Auto) 0 Nataliya/uL 07/15/23 10:37 Date of Service: 07/01/23 EXAMINATION: US RETROPERITONEAL COMPLETE (RENAL) FINDINGS: RIGHT KIDNEY: 10.1 x 4.8 x 5.5 cm (SAG x AP x TRV). The kidney is normal in size, contour, and echogenicity. Renal cortical thickness is normal. No focal parenchymal lesions or hydronephrosis. There appears to be a 0.5 cm echogenic calyceal stone in region of the [id number] pole (image 36 of 50). LEFT KIDNEY: 10.5 x 5.4 x 5.9 cm (SAG x AP x TRV). The kidney is normal in size, contour, and echogenicity. Renal cortical thickness is normal. No calculi, hydronephrosis or focal parenchymal lesions. BLADDER: The bladder wall has a slightly thickened, trabeculated appearance. Correlate for any clinical signs/symptoms of bladder outlet pathology. Bilateral ureteral jets are demonstrated. Prevoid bladder volume is 298 mL. Postvoid bladder volume is 118 mL. No evidence of bladder mass or stone. ADDITIONAL FINDINGS: Note that the prostate gland is not adequately visualized for acquisition of an accurate size measurement. There is no pelvic free fluid. IMPRESSION: * There appears to be a solitary stone of the left kidney. * No hydronephrosis. Otherwise, kidneys are unremarkable. * The urinary bladder wall has a mildly thickened, trabeculated appearance. This could be a manifestation of a chronic partial bladder outlet obstruction. Assessment & Plan Assessment & Plan (1) Elevated PSA: Code(s): R97.20 - Elevated prostate specific antigen [PSA] (2) Nephrolithiasis: Code(s): N20.0 - Calculus of kidney (3) Bladder trabeculation: Code(s): N32.89 - Other specified disorders of bladder (4) Bladder wall thickening: Code(s): N32.89 - Other specified disorders of bladder Plan In office urinalysis results reviewed with the patient today; as noted above. PVR 11 mL. Recent retroperitoneal ultrasound results reviewed with the patient today; as noted above. Discussed obtaining redraw of PSA for further assessment evaluation. Will obtain PSA free and total with no sex the night before, no caffeine morning of, and no heavy lifting 1-2 days prior. He is happy with his current voiding parameters on 0.4 mg of Flomax daily. Currently denies any bothersome urinary issues or concerns. Discussed at length potential causes of elevated PSA. Follow-up in 1 month with lab to be completed prior; or sooner with any issues, concerns, and or questions. Orders: Orders AMB Urinalysis Automated Today Z13.9 - Encounter for screening, unspecified PSA,Total (Free>4and<10) Today R97.20 - Elevated prostate specific antigen [PSA] AMB Post Void Residual by ultrasound Today N39.0 - Urinary tract infection, site not specified Patient Instructions: The patient had an opportunity to ask questions regarding the treatment plan. All questions were answered. Physical exam, labs, and imaging were discussed and reviewed in detail. As well as risks, benefits, and discussion of treatment choices. No major barriers to understanding were identified. The patient expressed understanding and agreement with the above treatment plan. The patient was made aware they should contact our office by phone for worsening of their current condition, the appearance of new symptoms, or with any questions or concerns. Compliance is encouraged with any medications and follow up testing that is ordered. It is a privilege to be allowed the opportunity to participate in? your urological care.? Again, if you have any questions or concerns If you have any questions or concerns please do not hesitate to contact me. The office is [phone]. This note is constructed using voice recognition software. While every effort has been made to ensure accuracy auto machinist errors may have been included. Yours sincerely, MARIA M Roberson Coding Level of Care Code Est Pt Level 3 (78157) Diagnoses Elevated PSA R97.20 Nephrolithiasis N20.0 Bladder trabeculation N32.89 Bladder wall thickening N32.89 CPT Codes Post Residual Void - PVR CPT Code: 33807-Xcid Void Residual by ultrasound ([id number])
== END 2023-07-15 11:04 | disposition home or self-care (01) ==
PROVIDERS: PCP Internal Medicine; Visit Provider Nurse Practitioner Family
DX: R97.20 Elevated prostate specific antigen [PSA] (principal); N20.0 Calculus of kidney; N32.89 Other specified disorders of bladder
CPT/HCPCS: 99213

== ENCOUNTER → 2023-07-15 10:02 | Outpatient (BNVA) | payer MEDICARE, SELFPAY | PROVIDERS: PCP Internal Medicine; Visit Provider Nurse Practitioner Family | DX: R97.20 Elevated prostate specific antigen [PSA] (principal); N20.0 Calculus of kidney; N32.89 Other specified disorders of bladder | CPT/HCPCS: 51798; 81003; 99212 ==

== ENCOUNTER 2023-07-15 11:04 | Outpatient (REF) | payer MEDICARE, SELFPAY ==
[2023-07-15 13:04] LABS: PSA,Total (Free>4and<10) 5.39 ng/mL (0.00-4.00)
[2023-07-19 11:34] LABS: Free Prostate Spec Ag 0.3 ng/mL; Percent Free Prostate Spec Ag 6 % (calc) (>25); Prostate Specific Ag Total 5.1 ng/mL (< OR = 4.0)
== END 2023-07-15 11:05 | disposition home or self-care (01) ==
LOC: HO.10HDL 11:04
PROVIDERS: Visit Provider Nurse Practitioner Family
DX: R97.20 Elevated prostate specific antigen [PSA] (principal); Z12.5 Encounter for screening for malignant neoplasm of prostate
CPT/HCPCS: 36415; 84153; 84154

== ENCOUNTER 2023-08-01 08:55 | Outpatient (AMB) | payer MEDICARE, SELFPAY ==
--- NOTE | 2023-08-01 09:02 | MHC.PC.OV ---
Vital Signs 08/01/23 09:04 Height 5 ft 8 in Weight 178 lb 2 oz BMI 27.1 BP 110/70 Blood Pressure Location Lt brachial Position Sitting Pulse 71 Pulse Source Pulse Oximeter Pulse Oximetry (%) 97 Oxygen Delivery Method Room Air Intake Visit Reasons: AF, elevated PSA Intake Note: Patient is here to follow up on Afib, Elevated PSA. Environmental Services Attendant Required: No Mixer Operator Tablets: Not Required per policy Accompanied by: Self / Same As Patient Allergies No Known Allergies [No Known Allergies*] Allergy (Verified 08/01/23 09:15) Medication List - Last Reconciled 08/01/23 by Rudy Mathis MD blood pressure monitor (Blood Pressure Kit) As directed Eliquis (apixaban) 2.5 mg PO BID 30 days NS tamsulosin 0.4 mg PO BEDTIME 90 days Tobacco use date assessed: 08/01/23 Fall risk assessment: No Falls in past year Last assessed Fall Risk: 08/01/23 Dental Screening Dental Screen Date: 08/01/23 Did you have a dental visit in the last 12 months?: No Did you have a dental problem in the last 6 months where you did not have access to dental care?: No Was dental information given to patient?: No (Dentures) HPI AF, elevated PSA HPI Details Patient comes in today for his follow up visit States that he feels okay He denies any headaches or dizziness Denies any chest pains, no SOB No nausea/vomiting, no abdominal pain No change in bowel habits noted PFSH Medical History Overweight (BMI 25.0-29.9) Vitamin D deficiency Osteoarthritis of knees, bilateral Persistent atrial fibrillation Benign essential hypertension Overactive bladder Benign prostatic hyperplasia Hyperlipidemia Surgical History History of hernia surgery Family History Mother No problems noted. Father No problems noted. Social History Housing: Apartment Alcohol intake: never Patient Tobacco Use Status: Never used Tobacco e-Cigarette/Vaping Use: Never Used Second Hand Smoke Exposure: Yes service: No Current occupational status: retired Cognitive needs: No Hearing needs: No Vision needs: Yes Questionnaire PHQ-9 Over the last 2 weeks, how often have you been bothered by any of the following problems? 1. Little interest or pleasure in doing things: not at all 2. Feeling down, depressed, or hopeless: not at all 3. Trouble falling or staying asleep, or sleeping too much: not at all 4. Feeling tired or having little energy: not at all 5. Poor appetite or overeating: not at all 6. Feeling bad about yourself - or that you are a failure or have let yourself or your family down: not at all 7. Trouble concentrating on things, such as reading the newspaper or watching television: not at all 8. Moving or speaking so slowly that other people could have noticed. Or the opposite - being so fidgety or restless that you have been moving around a lot more than usual: not at all 9. Thoughts that you would be better off or of hurting yourself in some way: not at all Total score: 0 Depression Screening Interpretation: Negative Depression Screening Done: Yes [id number] - PHQ-9 Billing: Yes Source: Developed by Drs. Santo Hayes, Carol Valdovinos, Navi Heard and colleagues, with an educational caroline from [employer]. Thrive Questionnaire Date Thrive assessed: 08/01/23 I am a: Patient Within the past 12 months, did the food you bought not last and you didn't have the money to get more?: Never true Within the past 12 months, did you worry whether your food would run out before you got money to buy more?: Never true Do you have trouble paying for medicines?: No Do you have trouble getting transportation to medical appointments?: No Do you have trouble paying your heating and electricity bill?: No Do you have trouble taking care of your child, family member or friend?: No Do you have trouble with day-to-day activities such as bathing, preparing meals, shopping, managing finances, etc.?: No Are you currently unemployed and looking for a job?: No Are you interested in more education?: No Currently or been in a relationship where the following occur: no concerns reported THRIVE Score: 0 AUDIT C Alcohol Use Questionnaire (AUDIT-C) 1. How often do you have a drink containing alcohol?: Never Total Score: 0 Score Reviewed/Action Taken: Yes VERNON-7 AMB Questionnaire VERNON-7 Date VERNON - 7 assessed: 08/01/23 Feeling nervous, anxious, or on edge: 0 = Not at all Not being able to stop or control worryin = Not at all Worrying too much about different things: 0 = Not at all Trouble relaxin = Not at all Being so restless that it is hard to sit still: 0 = Not at all Becoming easily annoyed or irritable: 0 = Not at all Feeling afraid as if something awful might happen: 0 = Not at all Total VERNON-7 score (0-4 normal; 5-9 mild; 10-14 moderate; 15-21 severe): 0 Source: Developed by Drs. Santo Hayes, Carol Valdovinos, Navi Heard and colleagues, with an educational caroline from [employer]. Review of Systems Const Denies chills, Denies difficulty sleeping, Denies fatigue, Denies fever(s) and Denies headache(s) ENT Denies dysphagia, Denies dizziness, Denies otalgia, Denies headache(s), Denies neck pain, Denies odynophagia and Denies sore throat Card Denies chest pain, Denies palpitations and Denies dyspnea Resp Denies cough and Denies dyspnea GI Denies abdominal pain, Denies constipation, Denies dysphagia, Denies heartburn, Denies diarrhea, Denies nausea, Denies odynophagia and Denies vomiting Denies difficulty urinating, Denies dysuria, Reports nocturia (at times) and Reports urinary frequency Musc Denies back pain and Denies neck pain Skin/Breast Denies rash Neuro Denies dizziness and Denies headache(s) Endo Denies fatigue and Denies palpitations Physical exam (Primary Care) Vital Signs: Last Vital Signs Pulse 71 08/01/23 09:04 BP 110/70 08/01/23 09:04 Pulse Ox 97 08/01/23 09:04 Oxygen Delivery Method Room Air 08/01/23 09:04 BMI result Body Mass Index 27.1 Tobacco/Smoking Status: Tobacco use Status Tobacco use date assessed 08/01/23 08/01/23 09:09 Patient Tobacco Use Status Never used Tobacco 08/01/23 09:09 e-Cigarette/Vaping Use Never Used 08/01/23 09:09 PHQ-9: PHQ-9 Score PHQ-9: Total score 0 08/01/23 09:09 Depression Screening Interpretation: Negative Thrive Assessment: Date of Thrive Assessment Date Thrive assessed 08/01/23 08/01/23 09:09 Currently or been in a relationship where the following occur: no concerns reported Const General: no acute distress and alert HENMT Ears: TM's normal bilaterally and EAC's normal Throat: Yes posterior oropharynx normal and Yes tonsils normal (no TP congestion) Neck Neck: Yes no lymphadenopathy and Yes supple Thyroid: Thyroid normal Resp Auscultation: clear to auscultation bilaterally, no rales and no wheezes Cardio Rate: regular rate Rhythm: abnormal rhythm irregularly irregular Heart sounds: no murmurs GI Palpation (GI): Soft to palpation and nontender Auscultation: normal bowel sounds General: Yes no CVA tenderness Back/Spine/Pelvis Back: no CVA tenderness Skin Rashes: no rashes Extrem General: Yes no clubbing, cyanosis or edema Assessment and Plan Assessment & Plan (1) Persistent atrial fibrillation: Code(s): I48.19 - Other persistent atrial fibrillation Plan: Patient is currently still in atrial fibrillation He has a [id number] score of 3, so anticoagulation is indicated He has has declined taking Rx in the past, including anticoagulants and beta blockers, but recently agreed to taking Apixaban 2.5 mg BID if it is covered by his insurance and he has been on this for a few months now without any issues Repeat echocardiogram done in May 2023 revealed a normal LV ejection fraction at 55-60%, with a mildly dilated left atrium, mild aortic regurgitation, mildly dilated ascending aorta at 3.8 cm and normal RV systolic pressure with mildly elevated right atrial pressures. No gross pericardial effusion is seen. Compared to his previous echo in 2017, the ascending aorta dilatation has increased slightly He declined offer to start him back on a beta martinez at his last visit but as his heart rate remains controlled, beta blockade is not really necessary at this time (2) Benign essential hypertension: Code(s): I10 - Essential (primary) hypertension Plan: His BP is currently controlled and is much improved from previous Reinforced low sodium diet - goal is systolic BP of at least 130 to 140 mm or less Patient is presently not on any Rx for his BP (by choice) - patient recalls that he felt worse when he was started on Rx for his blood pressure in the past and he prefers to continue controlling his BP without Rx as much as possible Patient is instructed to continue monitoring his blood pressure regularly Will have him recheck his labs in 4 months for follow up (3) Elevated PSA: Code(s): R97.20 - Elevated prostate specific antigen [PSA] Plan: Continue Tamsulosin 0.4 mg Q HS Follow up with urology as scheduled (4) Osteoarthritis of knees, bilateral: Code(s): M17.0 - Bilateral primary osteoarthritis of knee Qualifiers: Osteoarthritis type: primary Qualified Code(s): M17.0 - Bilateral primary osteoarthritis of knee Plan: States that his knee pain remain mostly manageable and he just takes some OTC Tylenol as needed with (+) relief No other intervention is needed or requested for at this time (5) Vitamin D deficiency: Code(s): E55.9 - Vitamin D deficiency, unspecified Plan: He is again advised that his Vitamin D level was still low on his recent labs in April 2023 and he should start back on OTC Vitamin D3 1000 units daily (6) Overweight (BMI 25.0-29.9): Code(s): E66.3 - Overweight Plan: Reinforced diet/exercise as tolerated/lose weight Plan Follow up in 4 months Orders: Orders Comprehensive [place]. Panel Fast 4 Months E78.00 - Pure hypercholesterolemia, unspecified UA CC w/rflx Micro + Cult 4 Months R30.0 - Dysuria Vitamin D 25-OH Total 4 Months E55.9 - Vitamin D deficiency, unspecified Microalbumin, Random (w Creat) 4 Months E11.9 - Type 2 diabetes mellitus without complications Complete Blood Count Auto Diff 4 Months D64.9 - Anemia, unspecified Lipid Panel 4 Months E78.00 - Pure hypercholesterolemia, unspecified TSH reflex Free T4 4 Months E78.00 - Pure hypercholesterolemia, unspecified Coding Level of Care Code Est Pt Level 4 (42095) Diagnoses Persistent atrial fibrillation I48.19 Benign essential hypertension I10 Elevated PSA R97.20 Primary osteoarthritis of both knees M17.0 Osteoarthritis type: primary Vitamin D deficiency E55.9 Overweight (BMI 25.0-29.9) E66.3
[2023-08-01 09:04] VITALS: BP 110/70; PULSE 71; O2SAT 97; BMI 27.1
== END 2023-08-01 09:24 | disposition home or self-care (01) ==
PROVIDERS: PCP Internal Medicine; Visit Provider Internal Medicine
DX: I48.19 Other persistent atrial fibrillation (principal); I10 Essential (primary) hypertension; R97.20 Elevated prostate specific antigen [PSA]; M17.0 Bilateral primary osteoarthritis of knee; E55.9 Vitamin D deficiency, unspecified; E66.3 Overweight
CPT/HCPCS: 99214

== ENCOUNTER 2023-08-31 08:46 | Outpatient (AMB) | payer MEDICARE, SELFPAY ==
--- NOTE | 2023-08-31 09:08 | A.OFFVIS_ITS ---
Intake Visit Reasons: 2m/PSA(set) Intake Note: Patient presents for follow up visit for Elevated PSA Urology Medications: Tamsulosin Blood Thinner: Eliquis Director Of Math Required: No Accompanied by: Self / Same As Patient Allergies No Known Allergies [No Known Allergies*] Allergy (Verified 08/31/23 09:40) Medication List - Last Reconciled 08/31/23 by PRISCILLA RobersonP- blood pressure monitor (Blood Pressure Kit) As directed Eliquis (apixaban) 2.5 mg PO BID 30 days NS levofloxacin 500 mg PO daily 3 days tamsulosin 0.4 mg PO BEDTIME 90 days HPI Comments Details: Lane is a very pleasant 78-year-old male patient of Dr. Mathis. He has a PMH of vitamin-D deficiency, osteoarthritis, atrial fibrillation, and hyperlipidemia. He presents to the office today for follow-up of his elevated PSA. Recent PSA results reviewed with the patient today. As noted and trended below: PSA: 08/25 2.3, 07/30 5.4, 07/30 5.1 % free PSA 6%. Previous workup has included a retroperitoneal ultrasound noting right kidney with no lesions or hydronephrosis. There appears to be a 0.5 cm echogenic calyceal stone in the region of the mid to lower pole. Left kidney with no calculi, lesions, and or hydronephrosis noted. The bladder wall is slightly thickened, trabeculated appearance. Bilateral ureteral jets are demonstrated. Pre void bladder volume is approximately 300 mL. Postvoid bladder volume is approximately 120 mL. No evidence of bladder mass or stone. Prostate measures approximately 37 mL. Discussed at length potential causes for elevated PSA. PCPT risk calculator results reviewed with the patient today. 5% chance prostate biopsy is negative, 46% chance of low-grade prostate cancer, and 49% chance of high-grade prostate cancer. Discussed at length further treatment options with surveillance monitoring verses trial of finasteride versus prostate biopsy. Risks and benefits of these interventions were discussed. He otherwise denies any bothersome urinary issues. He reports be happy with current voiding parameters on 0.4 mg of Flomax daily. In office urinalysis results reviewed with the patient today. When asked he denies any known history of family prostate cancer. He otherwise offers no other issues or concerns at this time. [facility] Medical History Overweight (BMI 25.0-29.9) Vitamin D deficiency Osteoarthritis of knees, bilateral Persistent atrial fibrillation Benign essential hypertension Overactive bladder Benign prostatic hyperplasia Hyperlipidemia Surgical History History of hernia surgery Family History Mother No problems noted. Father No problems noted. Social History Housing: Apartment Alcohol intake: never Patient Tobacco Use Status: Never used Tobacco e-Cigarette/Vaping Use: Never Used Second Hand Smoke Exposure: Yes service: No Current occupational status: retired Cognitive needs: No Hearing needs: No Vision needs: Yes Review of Systems Const Reports no additional complaints Eyes Reports no additional complaints ENT Reports no additional complaints Card Reports as per HPI Resp Reports no additional complaints GI Reports no additional complaints Reports as per HPI Musc Reports as per HPI Neuro Reports no additional complaints Psych Reports no additional complaints Endo Reports no additional complaints Hayden/Lymph Reports no additional complaints Aller/Immun Reports no additional complaints Physical Exam Const General: cooperative, comfortable, no acute distress, well developed, alert and awake Orientation/consciousness: patient oriented x3 Limitations: no limitations HEENT Head: Yes normal to inspection, Yes normocephalic and Yes atraumatic Ears: hearing grossly normal bilaterally Eyes General: appearance normal, both eyes and all related structures Neck Neck: Yes normal visual inspection and Yes trachea midline Chest Chest palpation & inspection: normal inspection of the chest Resp Effort & Inspection: normal respiratory effort and able to speak in complete sentences Cardio Rate: regular rate GI Inspection: Yes normal to inspection General: Yes no CVA tenderness Back/Spine/Pelvis Back: no CVA tenderness Skin General skin exam: no rashes or lesions noted Neuro General: patient oriented x3 Extrem General: Yes normal to inspection Psych Appearance: grossly normal and well kempt Mental Status: mental status grossly normal Speech and movement: Normal speech and movement present and Clear speech present Affect: normal affect Attitude: cooperative Thought process: Normal thought process present Thought content: Normal thought content present Insight: Fair insight present (Psych) Judgement: Fair judgement present (Psych) Assessment & Plan Assessment & Plan (1) Elevated PSA: Code(s): R97.20 - Elevated prostate specific antigen [PSA] Category: Medical Plan: Plan Risks and benefits regarding trans rectal ultrasound with prostate biopsy were discussed.? Options of continued surveillance, no treatment and biopsy were offered. The risks include but are not limited to, urinary tract infection, sepsis, difficulty urinating, bleeding into the rectum or bladder that requires intervention and transfusion,and failure to diagnose prostate cancer. The patient understands the options and the risks involved. They wish to proceed. Printed information was provided to ensure he remains off anticoagulation for the appropriate length of time. He may require cardiology or PCP clearance.? An antibiotic will be administered prior to, and following the procedure (2) Nephrolithiasis: Code(s): N20.0 - Calculus of kidney Category: Medical Plan In office urinalysis results reviewed with the patient today; as noted above. Discussed at length potential causes of elevated PSA as well as further treatment options to include surveillance monitoring verses trial of finasteride versus prostate biopsy; risks and benefits of these interventions were discussed at length Patient reports be happy with current voiding parameters on 0.4 mg of Flomax daily. Discussed at length potential causes of nephrolithiasis. Discussed, educated, and stressed the importance of drinking water daily. Discussed specific instructions of antibiotic therapy prior to prostate biopsy Will schedule for prostate biopsy as discussed. Follow-up per doctor's orders; or sooner with any issues, concerns, and or questions. Medications: New levofloxacin take 1 tablet day before procedure, 1 tablet day of procedure and 1 tablet day after procedure 500 mg PO daily 3 days 3 tabs 0RF Patient Instructions: The patient had an opportunity to ask questions regarding the treatment plan. All questions were answered. Physical exam, labs, and imaging were discussed and reviewed in detail. As well as risks, benefits, and discussion of treatment choices. No major barriers to understanding were identified. The patient expressed understanding and agreement with the above treatment plan. The patient was made aware they should contact our office by phone for worsening of their current condition, the appearance of new symptoms, or with any questions or concerns. Compliance is encouraged with any medications and follow up testing that is ordered. It is a privilege to be allowed the opportunity to participate in? your urological care.? Again, if you have any questions or concerns If you have any questions or concerns please do not hesitate to contact me. The office is [phone]. This note is constructed using voice recognition software. While every effort has been made to ensure accuracy director trial errors may have been included. Yours sincerely, MARIA M Roberson Coding Level of Care Code Est Pt Level 4 (60108) Diagnoses Elevated PSA R97.20 Nephrolithiasis N20.0
== END 2023-08-31 09:46 | disposition home or self-care (01) ==
PROVIDERS: PCP Internal Medicine; Visit Provider Nurse Practitioner Family
DX: R97.20 Elevated prostate specific antigen [PSA] (principal); N20.0 Calculus of kidney
CPT/HCPCS: 99214

== ENCOUNTER → 2023-08-31 08:46 | Outpatient (BNVA) | payer MEDICARE, SELFPAY | PROVIDERS: PCP Internal Medicine; Visit Provider Nurse Practitioner Family | DX: R97.20 Elevated prostate specific antigen [PSA] (principal); N20.0 Calculus of kidney | CPT/HCPCS: 99212 ==

== ENCOUNTER 2023-10-31 08:50 | Outpatient (AMB) | payer MEDICARE, SELFPAY ==
[2023-10-31 08:53] VITALS: BP 112/88; PULSE 87; O2SAT 97; BMI 26.5
--- NOTE | 2023-10-31 08:53 | A.OFFPC_ITS ---
Vital Signs 10/31/23 08:53 10/31/23 10:14 Height 5 ft 8 in Weight 174 lb 0.4 oz BMI 26.5 BP 112/88 120/82 Blood Pressure Location Lt brachial Lt brachial Position Sitting Sitting Pulse 87 Pulse Source Pulse Oximeter Pulse Oximetry (%) 97 Oxygen Delivery Method Room Air Intake Visit Reasons: Annual exam Intake Note: Patient is here today for a physical. Security Support Analyst Required: No Allergies No Known Allergies [No Known Allergies*] Allergy (Verified 10/31/23 10:04) Medication List - Last Reconciled 10/31/23 by Rudy Mathis MD blood pressure monitor (Blood Pressure Kit) As directed Eliquis (apixaban) 2.5 mg PO BID 30 days NS levofloxacin 500 mg PO daily 3 days tamsulosin 0.4 mg PO BEDTIME 90 days Tobacco use date assessed: 10/31/23 Fall risk assessment: No Falls in past year Dental Screening Dental Screen Date: 10/31/23 Did you have a dental visit in the last 12 months?: No Did you have a dental problem in the last 6 months where you did not have access to dental care?: No HPI Annual exam HPI Details Patient comes in today for his annual physical examination States that he currently feels okay He is scheduled for a prostate Bx with urology tomorrow and he has stopped taking his Eliquis a couple of days ago as instructed He denies any headaches or dizziness Denies any chest pains, no SOB No nausea/vomiting, no abdominal pain No change in bowel habits noted He denies any acute urinary symptoms He last had his screening colonoscopy done back on 01/22/[address] Haywood He was scheduled to have a repeat colonoscopy done in 2017 and already had his prep and was being set up for his repeat colonoscopy and was found to be in atrial fibrillation at the time and was sent down to the ER for further evaluation He was reportedly advised at the time that unless he is cleared by cardiology, he should not undergo repeat colonoscopy and he has not had the opportunity to revisit this since [facility] Medical History Overweight (BMI 25.0-29.9) Vitamin D deficiency Osteoarthritis of knees, bilateral Persistent atrial fibrillation Benign essential hypertension Overactive bladder Benign prostatic hyperplasia Hyperlipidemia Surgical History (Updated 10/31/23 @ 10:24 by Rudy Mathis MD) History of colonoscopy History of hernia surgery Family History Mother No problems noted. Father No problems noted. Social History Housing: Apartment Alcohol intake: never Patient Tobacco Use Status: Never used Tobacco e-Cigarette/Vaping Use: Never Used Second Hand Smoke Exposure: Yes service: No Current occupational status: retired Cognitive needs: No Hearing needs: No Vision needs: Yes Questionnaire PHQ-9 Over the last 2 weeks, how often have you been bothered by any of the following problems? 1. Little interest or pleasure in doing things: not at all 2. Feeling down, depressed, or hopeless: not at all 3. Trouble falling or staying asleep, or sleeping too much: not at all 4. Feeling tired or having little energy: not at all 5. Poor appetite or overeating: not at all 6. Feeling bad about yourself - or that you are a failure or have let yourself or your family down: not at all 7. Trouble concentrating on things, such as reading the newspaper or watching television: not at all 8. Moving or speaking so slowly that other people could have noticed. Or the opposite - being so fidgety or restless that you have been moving around a lot more than usual: not at all 9. Thoughts that you would be better off or of hurting yourself in some way: not at all Total score: 0 Depression Screening Interpretation: Negative Depression Screening Done: Yes 75174 - PHQ-9 Billing: Yes Source: Developed by Drs. Santo Hayes, Carol Valdovinos, Navi Heard and colleagues, with an educational caroline from [employer]. Thrive Questionnaire Date Thrive assessed: 10/31/23 I am a: Patient What is your living situation today?: I have a steady place to live Within the past 12 months, did the food you bought not last and you didn't have the money to get more?: Never true Within the past 12 months, did you worry whether your food would run out before you got money to buy more?: Never true Do you have trouble paying for medicines?: No Do you have trouble getting transportation to medical appointments?: No Do you have trouble paying your heating and electricity bill?: No Do you have trouble taking care of your child, family member or friend?: No Do you have trouble with day-to-day activities such as bathing, preparing meals, shopping, managing finances, etc.?: No Are you currently unemployed and looking for a job?: No Are you interested in more education?: No Currently or been in a relationship where the following occur: no concerns reported THRIVE Score: 0 AUDIT C Alcohol Use Questionnaire (AUDIT-C) 1. How often do you have a drink containing alcohol?: Never 3. How often do you have six or more drinks on one occasion?: Never Total Score: 0 Score Reviewed/Action Taken: Yes VERNON-7 AMB Questionnaire VERNON-7 Date VERNON - 7 assessed: 10/31/23 Feeling nervous, anxious, or on edge: 0 = Not at all Not being able to stop or control worryin = Not at all Worrying too much about different things: 0 = Not at all Trouble relaxin = Not at all Being so restless that it is hard to sit still: 0 = Not at all Becoming easily annoyed or irritable: 0 = Not at all Feeling afraid as if something awful might happen: 0 = Not at all Total VERNON-7 score (0-4 normal; 5-9 mild; 10-14 moderate; 15-21 severe): 0 Source: Developed by Drs. Santo Hayes, Carol Valdovinos, Navi Heard and colleagues, with an educational caroline from [employer]. Review of Systems Const Denies chills, Denies fatigue, Denies fever(s), Denies headache(s), Denies malaise and Denies weakness Eyes Denies blurry vision, Denies change in vision, Denies irritation and Denies itchy eyes ENT Denies dysphagia, Denies dizziness, Denies otalgia, Denies headache(s), Denies nasal congestion, Denies neck pain, Denies odynophagia and Denies sore throat Card Denies chest pain, Denies rapid heart rate, Reports irregular heart rhythm (is in persistent AF), Denies palpitations and Denies dyspnea Resp Denies chest congestion, Denies cough, Denies dyspnea and Denies wheezing GI Denies abdominal pain, Denies bloating, Denies constipation, Denies dysphagia, Denies heartburn, Denies diarrhea, Denies nausea, Denies odynophagia and Denies vomiting Denies hematuria, Denies difficulty urinating, Denies dysuria, Denies urinary frequency and Denies urinary urgency Musc Denies back pain, Denies arthralgias, Denies joint swelling, Denies muscle weakness and Denies neck pain Skin/Breast Denies change in pigmentation, Denies lesions, Denies rash and Denies unusual bruising Neuro Denies dizziness, Denies headache(s), Denies paresthesias and Denies weakness Endo Denies fatigue and Denies palpitations Aller/Immun Denies itchy eyes and Denies wheezing Physical exam (Primary Care) Vital Signs: Last Vital Signs Pulse 87 10/31/23 08:53 BP 112/88 10/31/23 08:53 Pulse Ox 97 10/31/23 08:53 Oxygen Delivery Method Room Air 10/31/23 08:53 BMI result Body Mass Index 26.5 Tobacco/Smoking Status: Tobacco use Status Tobacco use date assessed 10/31/23 10/31/23 09:24 Patient Tobacco Use Status Never used Tobacco 10/31/23 08:55 e-Cigarette/Vaping Use Never Used 10/31/23 08:55 PHQ-9: PHQ-9 Score PHQ-9: Total score 0 10/31/23 09:25 Depression Screening Interpretation: Negative Thrive Assessment: Date of Thrive Assessment Date Thrive assessed 10/31/23 10/31/23 08:55 Currently or been in a relationship where the following occur: no concerns reported Const General: no acute distress, alert and awake Orientation/consciousness: patient oriented x3 HENMT Head: Yes normocephalic and Yes atraumatic Ears: external ears normal, TM's normal bilaterally and EAC's normal General nose exam: No nasal discharge present Face and sinus: Yes normal facial exam and Yes sinuses nontender Teeth and gingiva: dentition normal Throat: Yes posterior oropharynx normal and Yes tonsils normal (no TP congestion) Eyes Eyelids: Yes eyelids normal Conjunctivae: conjunctivae normal Pupils: Equal, round and reactive pupils present EOM: EOMs intact bilaterally Neck Neck: Yes no lymphadenopathy and Yes supple Thyroid: Thyroid normal Resp Auscultation: clear to auscultation bilaterally, no rales and no wheezes Cardio Rate: regular rate Rhythm: abnormal rhythm irregularly irregular Heart sounds: no murmurs GI Palpation (GI): Soft to palpation, nontender and No hepatosplenomegaly present Auscultation: normal bowel sounds General: Yes no CVA tenderness Back/Spine/Pelvis Back: no CVA tenderness Thoracic/Lumbar Spine: thoracic and lumbar spine normal to inspection Skin Lesions: no lesions Rashes: no rashes Neuro General: patient oriented x3, moves all extremities, no focal motor deficits and CN's II-XI intact bilaterally Cranial nerves: Yes Equal, round and reactive pupils present Cognition (Neuro): normal cognition Gait exam (Neuro): Normal gait present Extrem General: Yes no clubbing, cyanosis or edema Assessment and Plan Assessment & Plan (1) Annual physical exam: Code(s): Z00.00 - Encounter for general adult medical examination without abnormal findings Plan: Check labs He last had his screening colonoscopy done in 2002 (Dr. Haywood) and was supposed to get his repeat colonoscopy in 2016 but his procedure was cancelled when he was found to be in AF He was reportedly advised that he should get cleared by cardiology first before he undergoes another procedure and he has since not rescheduled his colonoscopy As he is going for his prostate Bx tomorrow, prefers not to look into getting another colonoscopy at this time (2) Persistent atrial fibrillation: Code(s): I48.19 - Other persistent atrial fibrillation Plan: Patient is currently still in atrial fibrillation He has a [id number] score of 3, so anticoagulation is indicated - currently on Eliquis 2.5 mg BID although this has been held for a couple of days now because of his prostate Bx tomorrow Repeat echocardiogram done in May 2023 revealed a normal LV ejection fraction at 55-60%, with a mildly dilated left atrium, mild aortic regurgitation, mildly dilated ascending aorta at 3.8 cm and normal RV systolic pressure with mildly elevated right atrial pressures. No gross pericardial effusion is seen. Compared to his previous echo in 2017, the ascending aorta dilatation has increased slightly He declined offer to start him back on a beta martinez at his last visit but as his heart rate remains controlled, beta blockade is not really necessary at this time Follow up with cardiology as scheduled (3) Benign essential hypertension: Code(s): I10 - Essential (primary) hypertension Plan: His BP currently remains well-controlled Reinforced low sodium diet - goal is systolic BP of at least 130 to 140 mm or less Patient is presently not on any Rx for his BP (by choice) - patient recalls that he felt worse when he was started on Rx for his blood pressure in the past and he prefers to continue controlling his BP without Rx as much as possible Patient is reminded to continue monitoring his blood pressure regularly (4) Elevated PSA: Code(s): R97.20 - Elevated prostate specific antigen [PSA] Plan: Continue Tamsulosin 0.4 mg Q HS Follow up with urology as scheduled - he is scheduled for a prostate Bx tomorrow due to his recent elevated PSA level (5) Osteoarthritis of knees, bilateral: Code(s): M17.0 - Bilateral primary osteoarthritis of knee Qualifiers: Osteoarthritis type: primary Qualified Code(s): M17.0 - Bilateral primary osteoarthritis of knee Plan: States that his knee pain remain mostly manageable and he just takes some OTC Tylenol as needed with (+) relief No other intervention is needed or requested for at this time (6) Vitamin D deficiency: Code(s): E55.9 - Vitamin D deficiency, unspecified Plan: Continue Vitamin D3 1000 units QD (7) Overweight (BMI 25.0-29.9): Code(s): E66.3 - Overweight Plan: Reinforced diet/exercise as tolerated/lose weight Plan Follow up in 4 months Coding Level of Care Code Est Pt Prev Care >65y(91882) Diagnoses Annual physical exam Z00.00 Persistent atrial fibrillation I48.19 Benign essential hypertension I10 Elevated PSA R97.20 Primary osteoarthritis of both knees M17.0 Osteoarthritis type: primary Vitamin D deficiency E55.9 Overweight (BMI 25.0-29.9) E66.3
[2023-10-31 10:14] VITALS: BP 120/82
== END 2023-10-31 10:22 | disposition home or self-care (01) ==
PROVIDERS: PCP Internal Medicine; Visit Provider Internal Medicine
DX: Z00.00 Encounter for general adult medical examination without abnormal findings (principal); I48.19 Other persistent atrial fibrillation; I10 Essential (primary) hypertension; R97.20 Elevated prostate specific antigen [PSA]; M17.0 Bilateral primary osteoarthritis of knee; E55.9 Vitamin D deficiency, unspecified; E66.3 Overweight
CPT/HCPCS: 99397

== ENCOUNTER 2023-11-01 06:56 | Outpatient (REF) | payer MEDICARE, SELFPAY ==
[2023-11-01 07:07] LABS: MANUAL DIFF FLAG NO
[2023-11-01 07:41] LABS: Basophils Absolute Auto 0.1 X10*3/uL (0.0-0.2); Eosinophils Absolute Auto 0.3 X10*3/uL (0.0-0.4); Eosinophils Percent Auto 3.7 % (0-4); Hematocrit 45.2 % (42.0-52.0); Imm Gran Abs Auto 0.04 X10*3/uL (0.00-0.03); Imm Gran Pct Auto 0.5 % (0.0-0.4); Lymphocytes Absolute Auto 1.8 X10*3/uL (1.2-4.9); Lymphocytes Percent Auto 23.6 % (20-40); Mean Corpuscular HGB Conc 33.2 g/dl (31.0-36.0); Mean Corpuscular Hemoglobin 28.4 pg (27.0-33.0); Mean Corpuscular Volume 85.4 fL (80.0-98.0); Mean Platelet Volume 9.9 fL (9.4-12.4); Monocytes Absolute Auto 0.8 X10*3/uL (0.1-1.2); Monocytes Percent Auto 10.6 % (2-11); Neutrophils Absolute Auto 4.7 x10*3/uL (2.0-8.3); Neutrophils Percent Auto 60.6 % (45-73); Platelet Count 233 X10*3/uL (160-400); Red Blood Count 5.29 X10*6/uL (4.60-5.80); Red Cell Distribution Width 14.7 % (11.0-16.0); White Blood Count 7.8 X10*3/uL (4.8-10.8)
[2023-11-01 07:52] LABS: Appearance Urine Clear; Color Urine Yellow; Glucose Urine UA Negative (Negative); Leukocyte Esterase Urine Negative (Negative); Nitrite Urine Negative (Negative); PH 5.5 (5.0-9.0); Specific Gravity - Urine 1.015 (1.005-1.025); Urine Blood Negative (Negative); Urine Ketones Negative (Negative); Urine Protein Negative (Neg-Trace)
[2023-11-01 08:17] LABS: Creatinine Urine 118.42 mg/dL; Microalbum/Creatinine Ratio Ur 17.7 ug/mg cr (<30)
[2023-11-01 08:22] LABS: Alanine Aminotransferase 20 U/L (0-40); Albumin Level 4.1 g/dL (3.5-5.0); Alkaline Phosphatase 72 U/L (39-117); Anion Gap 12 (12-20); Aspartate Amino Transferase 22 U/L (5-37); Bilirubin Total 1.5 mg/dL (0.0-1.0); Blood Urea Nitrogen 16 mg/dL (9-16); Calcium 9.8 mg/dL (8.4-10.2); Carbon Dioxide 28 mmol/L (22-29); Chloride 105 mmol/L (96-108); Cholesterol 166 mg/dL (<200); Estimated Glomerular Filt Rate > 60; Glucose Fasting 100 mg/dL (60-99); HDL Cholesterol 32 mg/dL (>40); LDL Cholesterol Calculated 117 mg/dL (<100); Potassium 3.8 mmol/L (3.3-5.1); Sodium 141 mmol/L (135-145); Total Protein 7.8 g/dL (6.5-8.0); Triglycerides 85 mg/dL (<150)
[2023-11-01 08:43] LABS: Vitamin D 25-OH Total 24.1 ng/mL (>30)
== END 2023-11-01 06:57 | disposition home or self-care (01) ==
LOC: HO.LAB 06:56
PROVIDERS: PCP Internal Medicine; Visit Provider Internal Medicine
DX: E78.00 Pure hypercholesterolemia, unspecified (principal); D64.9 Anemia, unspecified; R30.0 Dysuria; E55.9 Vitamin D deficiency, unspecified; E11.9 Type 2 diabetes mellitus without complications
CPT/HCPCS: 36415; 80053; 80061; 81003; 82043; 82306; 82570; 84443; 85025

== ENCOUNTER 2023-11-01 12:36 | Day surgery (SDC) | payer MEDICARE, SELFPAY ==
--- NOTE | 2023-11-01 12:54 | MHC.SHP ---
Pre-Procedural Eval Section A - 24 Hr Update-Section A only Date of Service: 11/01/23 The patient is an INPATIENT: No The patient has been examined within 24 hours of the surgical procedure. The History & Physical has been completed within 30 days and I have reviewed it.: Yes Section B - Complete if H&P > 30 days Chief Complaint: Elevated prostate specific antigen [PSA] Allergies: Allergies Allergy/AdvReac Type Severity Reaction Status Date / Time No Known Allergies Allergy Verified 10/31/23 10:04 [No Known Allergies*] Plan Diagnosis/Plan: Unchanged I have reviewed the history and physical and performed a pertinent physical examination on my patient. No changes have occurred unless specified. Transrectal Ultrasound guided biopsy of the prostate. Discussed risks to include but not limited to pain, blood in stool, urine and semen, septicemia, need to repeat biopsy. Time Spent With Patient Time: Total time managing care of this patient today ____ minutes.
[2023-11-01 13:02] VITALS: BP 174/99; PULSE 91; RESP 18; TEMP 37.2; O2SAT 97; BMI 25.7
--- NOTE | 2023-11-01 13:37 | W.PM.OPN ---
Operative Note Operative Note Date of Service: 11/01/23 Narrative: PreOperative Diagnosis:? ? Elevated PSA, prostate nodule Post Operative Diagnosis:??Elevated PSA, prostate nodule Procedure:?1. Transrectal ultrasound guided biopsy of the prostate 12 core 2. Transrectal ultrasound measurement of prostate 3. Transrectal ultrasound guided pudendal nerve block Surgeon:?Dr Jennifer Sykes Anesthesia:? Local Indications for procedure: Elevated PSA Procedure: Preoperative antibiotics confirmed. After informed consent was verified the patient was placed on the procedure table in left lateral position. Patient identity confirmed. Safety pause time-out performed. Digital rectal exam performed to dilate rectal sphincter, iodine mixed with lubricant jelly 30 cc placed per rectum. Ultrasound probe was placed per rectum. The prostate was visualized. The prostate was measured width 4.70 cm, height 1.55 cm, length 2.92 cm with a volume of 11.1 mL. An ultrasound guided pudendal nerve block was performed using 10 cc of 1% lidocaine. A 12 core biopsy was performed from the left base, left mid, left apex and right base, mid, apex 2 biopsies from each section. The ultrasound probe was removed and digital palpation of the prostate for 1-2 minutes for hemostasis was performed. The patient tolerated the procedure well. Complications: None
[2023-11-01 13:42] VITALS: BP 152/90; PULSE 81; RESP 16; O2SAT 95
== END 2023-11-01 12:37 | disposition home or self-care (01) ==
LOC: HO.SSS 11-18 13:24
PROVIDERS: PCP Internal Medicine; Visit Provider Urology
PROC: (CPT 55700; principal; 2023-11-01 13:10)
DX: C61 Malignant neoplasm of prostate (principal); N40.2 Nodular prostate without lower urinary tract symptoms; N32.81 Overactive bladder; N20.0 Calculus of kidney; I48.91 Unspecified atrial fibrillation; I10 Essential (primary) hypertension; E78.5 Hyperlipidemia, unspecified; E55.9 Vitamin D deficiency, unspecified; Z79.01 Long term (current) use of anticoagulants; Z79.899 Other long term (current) drug therapy; Z98.890 Other specified postprocedural states
CPT/HCPCS: 55700; 76942; 88305; 88342; 88344

== ENCOUNTER → 2023-11-01 12:36 | Outpatient (BNV) | payer MEDICARE, SELFPAY | PROVIDERS: PCP Internal Medicine; Visit Provider Urology | DX: R97.20 Elevated prostate specific antigen [PSA] (principal) | CPT/HCPCS: 55700; 76942 ==

== ENCOUNTER 2023-11-18 09:56 | Outpatient (AMB) | payer MEDICARE, SELFPAY ==
--- NOTE | 2023-11-18 09:57 | A.OFFVIS_ITS ---
Intake Visit Reasons: Prostate bx results Intake Note: Patient presents for prostate BX results Urology Medications: Tamsulosin Blood Thinner: Eliquis Director Of Medical Services Required: No Accompanied by: Self / Same As Patient Allergies No Known Allergies [No Known Allergies*] Allergy (Verified 11/18/23 09:58) HPI Comments Details: 11/18/23--Lane is s/p prostate biopsy 11/01/23, I have reviewed pathology results-- left -diana 7, grade group 2. Discussed treatment options- surgery, radical prostatectomy, radiation therapy and active surveillance, give his age and PSA, plan discussed active surveillance, will repeat PSA in 4 months, start avodart 0.5 mg daily. Review of chart: 08/31/23--Lane is a very pleasant 78-year-old male patient of Dr. Mathis. He has a PMH of vitamin-D deficiency, osteoarthritis, atrial fibrillation, and hyperlipidemia. He presents to the office today for follow-up of his elevated PSA. Recent PSA results reviewed with the patient today. As noted: PSA: 08/25 2.3, 07/30 5.4, 07/30 5.1 % free PSA 6%. Previous workup has included a retroperitoneal ultrasound noting right kidney with no lesions or hydronephrosis. There appears to be a 0.5 cm echogenic calyceal stone in the region of the mid to lower pole. Left kidney with no calculi, lesions, and or hydronephrosis noted. The bladder wall is slightly thickened, trabeculated appearance. Bilateral ureteral jets are demonstrated. Pre void bladder volume is approximately 300 mL. Postvoid bladder volume is approximately 120 mL. No evidence of bladder mass or stone. Prostate measures approximately 37 mL. Discussed at length potential causes for elevated PSA. PCPT risk calculator results reviewed with the patient today. 5% chance prostate biopsy is negative, 46% chance of low-grade prostate cancer, and 49% chance of high-grade prostate cancer. Discussed at length further treatment options with surveillance monitoring verses trial of finasteride versus prostate biopsy. Risks and benefits of these interventions were discussed. He otherwise denies any bothersome urinary issues. He reports be happy with current voiding parameters on 0.4 mg of Flomax daily. In office urinalysis results reviewed with the patient today. When asked he denies any known history of family prostate cancer. He otherwise offers no other issues or concerns at this time. PFSH Medical History Overweight (BMI 25.0-29.9) Vitamin D deficiency Osteoarthritis of knees, bilateral Persistent atrial fibrillation Benign essential hypertension Overactive bladder Benign prostatic hyperplasia Hyperlipidemia Surgical History History of colonoscopy History of hernia surgery Family History Mother No problems noted. Father No problems noted. Social History Housing: Apartment Alcohol intake: never Patient Tobacco Use Status: Former Tobacco user e-Cigarette/Vaping Use: Never Used Second Hand Smoke Exposure: Yes service: No Current occupational status: retired Cognitive needs: No Hearing needs: No Vision needs: Yes Review of Systems Const All systems reviewed & are unremarkable except as noted in HPI and below Reports no additional complaints Eyes Reports no additional complaints ENT Reports no additional complaints Card Reports no additional complaints Resp Reports no additional complaints GI Reports no additional complaints Reports as per HPI Musc Reports no additional complaints Skin/Breast Reports system reviewed and no additional complaints, except as documented Neuro Reports no additional complaints Psych Reports no additional complaints Endo Reports no additional complaints Hayden/Lymph Reports no additional complaints Aller/Immun Reports no additional complaints Results AMB Urinalysis, Automated UA Leukoctes 0 Nataliya/uL Last Edit by CHELSEA Eli on 11/18/23 10:12 UA Nitrite Negative Last Edit by CHELSEA Eli on 11/18/23 10:12 UA Urobilinogen 0.2 mg/dL Last Edit by CHELSEA Eli on 11/18/23 10:1 2 UA Protein 15 mg/dL Last Edit by CHELSEA Eli on 11/18/23 10:12 UA pH 5.5 Last Edit by CHELSEA Eli on 11/18/23 10:12 UA Blood 25 Darío/uL Last Edit by CHELSEA Eli on 11/18/23 10:12 UA Specific [place] 1.025 Last Edit by CHELSEA Eli on 11/18/23 10: 12 UA Ketone Negative Last Edit by CHELSEA Eli on 11/18/23 10:12 UA Bilirubin 0 mg/dL Last Edit by CHELSEA Eli on 11/18/23 10:12 UA Glucose 0 mg/dL Last Edit by CHELSEA Eli on 11/18/23 10:12 Results Reviewed Results Reviewed: Laboratory Last Values Urine pH (Auto) 5.5 11/18/23 10:11 Specific [place] (Auto) 1.025 11/18/23 10:11 Urine Protein (Auto) 15 mg/dL 11/18/23 10:11 Glucose (UA)(Auto) 0 mg/dL 11/18/23 10:11 Urine Ketones (Auto) Negative 11/18/23 10:11 Urine Blood (Auto) 25 Darío/uL 11/18/23 10:11 Urine Nitrite (Auto) Negative 11/18/23 10:11 Urine Bilirubin (Auto) 0 mg/dL 11/18/23 10:11 Urine Urobilinogen (Auto) 0.2 mg/dL 11/18/23 10:11 Leukocyte Esterase (Auto) 0 Nataliya/uL 11/18/23 10:11 Collected: 11/01/23 Location: [facility] Received: 11/01/23 Diagnosis Prostate, needle core biopsies: A. Left base lateral: Benign prostatic tissue. B. Left base medial: Benign prostatic tissue. C. Left mid lateral: Prostatic adenocarcinoma, [place] score 7 (3+4), grade group 2, 45% pattern 4, 4 mm, 24% of core and high-grade prostatic intraepithelial neoplasia. D. Left mid medial: Prostatic adenocarcinoma, [place] score 7 (3+4), grade group 2, 35% pattern 4, 11 mm, 69% of core, high-grade prostatic intraepithelial neoplasia and perineural invasion. E. Left apex lateral: Prostatic adenocarcinoma, Diana score 7 (3+4), grade group 2, 5% pattern 4, 12 mm, 80% of core and perineural invasion. F. Left apex medial: Prostatic adenocarcinoma, [place] score 7 (3+4), grade group 2, 5% pattern 4, 9 mm, 64% of core. G. Right base lateral: Benign prostatic tissue. H. Right base medial: Benign prostatic tissue. I. Right mid lateral: Benign prostatic tissue. J. Right mid medial: Benign prostatic tissue. K. Right apex lateral: Benign prostatic tissue. L. Right apex medial: Benign prostatic tissue. Data synopsis - Prostate needle biopsy Histologic type: Adenocarcinoma, acinar type Histologic grade: [place] score: 7 (3+4) (left mid lateral and medial, left apex lateral and medial) % of pattern 4: 19 % % of pattern 5: 0 % Grade group: 2 Date of Service: 07/01/23 EXAMINATION: US RETROPERITONEAL COMPLETE (RENAL) FINDINGS: RIGHT KIDNEY: 10.1 x 4.8 x 5.5 cm (SAG x AP x TRV). The kidney is normal in size, contour, and echogenicity. Renal cortical thickness is normal. No focal parenchymal lesions or hydronephrosis. There appears to be a 0.5 cm echogenic calyceal stone in region of the [id number] pole (image 36 of 50). LEFT KIDNEY: 10.5 x 5.4 x 5.9 cm (SAG x AP x TRV). The kidney is normal in size, contour, and echogenicity. Renal cortical thickness is normal. No calculi, hydronephrosis or focal parenchymal lesions. BLADDER: The bladder wall has a slightly thickened, trabeculated appearance. Correlate for any clinical signs/symptoms of bladder outlet pathology. Bilateral ureteral jets are demonstrated. Prevoid bladder volume is 298 mL. Postvoid bladder volume is 118 mL. No evidence of bladder mass or stone. ADDITIONAL FINDINGS: Note that the prostate gland is not adequately visualized for acquisition of an accurate size measurement. There is no pelvic free fluid. IMPRESSION: * There appears to be a solitary stone of the left kidney. * No hydronephrosis. Otherwise, kidneys are unremarkable. * The urinary bladder wall has a mildly thickened, trabeculated appearance. This could be a manifestation of a chronic partial bladder outlet obstruction. Assessment & Plan Assessment & Plan (1) Elevated PSA: Code(s): R97.20 - Elevated prostate specific antigen [PSA] Category: Medical Plan: Plan Risks and benefits regarding trans rectal ultrasound with prostate biopsy were discussed.? Options of continued surveillance, no treatment and biopsy were offered. The risks include but are not limited to, urinary tract infection, sepsis, difficulty urinating, bleeding into the rectum or bladder that requires intervention and transfusion,and failure to diagnose prostate cancer. The patient understands the options and the risks involved. They wish to proceed. Printed information was provided to ensure he remains off anticoagulation for the appropriate length of time. He may require cardiology or PCP clearance.? An antibiotic will be administered prior to, and following the procedure (2) Nephrolithiasis: Code(s): N20.0 - Calculus of kidney Category: Medical (3) Adenocarcinoma of prostate: Code(s): C61 - Malignant neoplasm of prostate Category: Medical Plan Active Surveillance PSA in 4 months, avodart 0.5 mg daily monitor kidney stones Orders: Orders AMB Urinalysis Automated 11/18/23 Z13.9 - Encounter for screening, unspecified Patient Instructions: The patient had an opportunity to ask questions regarding treatment plan. The patient expressed understanding and agreement with the above treatment plan. The patient is aware they should contact our office by phone for worsening of their current condition or the appearance of new symptoms. Compliance is encouraged with any medications and followup testing that is ordered. It is a privilege to be allowed the opportunity to participate in the urologic care of your patient. If you have any questions or concerns regarding treatment for the above conditions please do not hesitate to contact me. The office telephone contact is [phone]. This note is constructed in part using voice recognition software. While every effort has been made to ensure accuracy technical administrator errors may have been included. Yours sincerely, Jennifer Sykes MD Coding Level of Care Code Est Pt Level 4 (85665) Diagnoses Elevated PSA R97.20 Nephrolithiasis N20.0 Adenocarcinoma of prostate C61
== END 2023-11-18 11:03 | disposition home or self-care (01) ==
PROVIDERS: PCP Internal Medicine; Visit Provider Urology
DX: R97.20 Elevated prostate specific antigen [PSA] (principal); N20.0 Calculus of kidney; C61 Malignant neoplasm of prostate
CPT/HCPCS: 99214

== ENCOUNTER → 2023-11-18 09:56 | Outpatient (BNVA) | payer MEDICARE, SELFPAY | PROVIDERS: PCP Internal Medicine; Visit Provider Urology | DX: R97.20 Elevated prostate specific antigen [PSA] (principal); N20.0 Calculus of kidney; C61 Malignant neoplasm of prostate | CPT/HCPCS: 81003; 99212 ==

== ENCOUNTER 2024-03-09 10:31 | Outpatient (AMB) | payer MEDICARE, SELFPAY ==
[2024-03-09 10:54] VITALS: BP 120/78; PULSE 88; O2SAT 95; BMI 25.2
--- NOTE | 2024-03-09 10:54 | MHC.PC.OV ---
Vital Signs 03/09/24 10:54 Height 5 ft 9 in Weight 170 lb 6 oz BMI 25.2 BP 120/78 Blood Pressure Location Lt brachial Position Sitting Pulse 88 Pulse Source Pulse Oximeter Pulse Oximetry (%) 95 Oxygen Delivery Method Room Air Intake Visit Reasons: [facility] f/u Fire Prevention Inspector Required: No Accompanied by: Self / Same As Patient Allergies No Known Allergies [No Known Allergies*] Allergy (Verified 03/09/24 11:08) Medication List - Last Reconciled 03/09/24 by Rudy Mathis MD blood pressure monitor (Blood Pressure Kit) As directed dutasteride 0.5 mg PO DAILY 90 days Eliquis (apixaban) 2.5 mg PO BID 30 days NS levofloxacin 500 mg PO daily 3 days tamsulosin 0.4 mg PO BEDTIME 90 days Tobacco use date assessed: 03/09/24 Fall risk assessment: No Falls in past year Last assessed Fall Risk: 03/09/24 Dental Screening Dental Screen Date: 03/09/24 Did you have a dental visit in the last 12 months?: No Did you have a dental problem in the last 6 months where you did not have access to dental care?: No Was dental information given to patient?: No HPI [facility] f/u HPI Details Patient comes in today for his follow-up visit States that he feels okay He was recently diagnosed with adenocarcinoma of the prostate (on biopsy) and has been referred by urology to radiation oncology for further management Patient currently denies any headaches or dizziness Denies any chest pains, no shortness of breath No nausea/vomiting, no abdominal pain No change in bowel habits noted He had his follow-up labs done a few months ago - to discuss his results [facility] Medical History Overweight (BMI 25.0-29.9) Vitamin D deficiency Osteoarthritis of knees, bilateral Persistent atrial fibrillation Benign essential hypertension Overactive bladder Benign prostatic hyperplasia Hyperlipidemia Surgical History History of colonoscopy History of hernia surgery Family History Mother No problems noted. Father No problems noted. Social History Housing: Apartment Alcohol intake: never Patient Tobacco Use Status: Former Tobacco user e-Cigarette/Vaping Use: Never Used Second Hand Smoke Exposure: Yes service: No Current occupational status: retired Cognitive needs: No Hearing needs: No Vision needs: Yes Questionnaire PHQ-9 Over the last 2 weeks, how often have you been bothered by any of the following problems? 1. Little interest or pleasure in doing things: not at all 2. Feeling down, depressed, or hopeless: not at all 3. Trouble falling or staying asleep, or sleeping too much: not at all 4. Feeling tired or having little energy: not at all 5. Poor appetite or overeating: not at all 6. Feeling bad about yourself - or that you are a failure or have let yourself or your family down: not at all 7. Trouble concentrating on things, such as reading the newspaper or watching television: not at all 8. Moving or speaking so slowly that other people could have noticed. Or the opposite - being so fidgety or restless that you have been moving around a lot more than usual: not at all 9. Thoughts that you would be better off or of hurting yourself in some way: not at all Total score: 0 Depression Screening Interpretation: Negative Depression Screening Done: Yes 73678 - PHQ-9 Billing: Yes Source: Developed by Drs. Santo Hayes, Carol Valdovinos, Navi Heard and colleagues, with an educational caroline from [employer]. Thrive Questionnaire Date Thrive assessed: 03/09/24 I am a: Patient What is your living situation today?: I have a steady place to live Within the past 12 months, did the food you bought not last and you didn't have the money to get more?: Never true Within the past 12 months, did you worry whether your food would run out before you got money to buy more?: Never true Do you have trouble paying for medicines?: No Do you have trouble getting transportation to medical appointments?: No Do you have trouble paying your heating and electricity bill?: No Do you have trouble taking care of your child, family member or friend?: No Do you have trouble with day-to-day activities such as bathing, preparing meals, shopping, managing finances, etc.?: No Are you currently unemployed and looking for a job?: No Are you interested in more education?: No Please select the resources that you would like help with: None Currently or been in a relationship where the following occur: No concerns reported THRIVE Score: 0 AUDIT C Alcohol Use Questionnaire (AUDIT-C) 1. How often do you have a drink containing alcohol?: Never 3. How often do you have six or more drinks on one occasion?: Never Total Score: 0 Score Reviewed/Action Taken: Yes VERNON-7 AMB Questionnaire VERNON-7 Date VERNON - 7 assessed: 03/09/24 Feeling nervous, anxious, or on edge: 0 = Not at all Not being able to stop or control worryin = Not at all Worrying too much about different things: 0 = Not at all Trouble relaxin = Not at all Being so restless that it is hard to sit still: 0 = Not at all Becoming easily annoyed or irritable: 0 = Not at all Feeling afraid as if something awful might happen: 0 = Not at all Total VERNON-7 score (0-4 normal; 5-9 mild; 10-14 moderate; 15-21 severe): 0 Source: Developed by Drs. Santo Hayes, Carol Valdovinos, Navi Heard and colleagues, with an educational caroline from [employer]. Review of Systems Const Denies chills, Denies fatigue, Denies fever(s) and Denies headache(s) ENT Denies dysphagia, Denies dizziness, Denies otalgia, Denies headache(s), Denies neck pain, Denies odynophagia and Denies sore throat Card Denies chest pain, Denies rapid heart rate, Reports irregular heart rhythm (is in persistent AF), Denies palpitations and Denies dyspnea Resp Denies chest congestion, Denies cough and Denies dyspnea GI Denies abdominal pain, Denies constipation, Denies dysphagia, Denies heartburn, Denies diarrhea, Denies nausea, Denies odynophagia and Denies vomiting Denies difficulty urinating, Denies dysuria and Denies urinary frequency Musc Denies back pain, Denies arthralgias and Denies neck pain Skin/Breast Denies rash Neuro Denies dizziness, Denies headache(s) and Denies paresthesias Endo Denies fatigue and Denies palpitations Physical exam (Primary Care) Vital Signs: Last Vital Signs Pulse 88 03/09/24 10:54 BP 120/78 03/09/24 10:54 Pulse Ox 95 03/09/24 10:54 Oxygen Delivery Method Room Air 03/09/24 10:54 BMI result Body Mass Index 25.2 Tobacco/Smoking Status: Tobacco use Status Tobacco use date assessed 03/09/24 03/09/24 11:01 Patient Tobacco Use Status Former Tobacco user 03/09/24 11:01 e-Cigarette/Vaping Use Never Used 03/09/24 11:01 PHQ-9: PHQ-9 Score PHQ-9: Total score 0 03/09/24 11:12 Depression Screening Interpretation: Negative Thrive Assessment: Date of Thrive Assessment Date Thrive assessed 03/09/24 03/09/24 11:01 Currently or been in a relationship where the following occur: No concerns reported Const General: no acute distress and alert HENMT Ears: TM's normal bilaterally and EAC's normal Throat: Yes posterior oropharynx normal and Yes tonsils normal (no TP congestion) Neck Neck: Yes no lymphadenopathy and Yes supple Thyroid: Thyroid normal Resp Auscultation: clear to auscultation bilaterally, no rales and no wheezes Cardio Rate: regular rate Rhythm: abnormal rhythm irregularly irregular Heart sounds: no murmurs GI Palpation (GI): Soft to palpation and nontender Auscultation: normal bowel sounds General: Yes no CVA tenderness Back/Spine/Pelvis Back: no CVA tenderness Thoracic/Lumbar Spine: thoracic and lumbar spine normal to inspection Skin Rashes: no rashes Extrem General: Yes no clubbing, cyanosis or edema Results Reviewed Results Reviewed: Laboratory Tests 11/01/23 11/01/23 06:59 07:05 WBC 7.8 Hgb 15.0 Hct 45.2 Plt Count 233 Sodium 141 Potassium 3.8 Creatinine 1.03 Estimated GFR > 60 Fasting Glucose 100 H Calcium 9.8 Total Bilirubin 1.5 H AST 22 ALT 20 Triglycerides 85 Cholesterol 166 LDL Cholesterol, Calc 117 H HDL Cholesterol 32 L 25-OH Vitamin D Total 24.1 L TSH 1.90 Ur Specific [place] 1.015 Urine Protein Negative Urine Glucose (UA) Negative Urine Blood Negative Urine Nitrite Negative Ur Leukocyte Esterase Negative Coding Level of Care Code Est Pt Level 4 (85214) Diagnoses Persistent atrial fibrillation I48.19 Benign essential hypertension I10 Primary osteoarthritis of both knees M17.0 Osteoarthritis type: primary Vitamin D deficiency E55.9 Adenocarcinoma of prostate C61 Assessment & Plan Assessment & Plan (1) Persistent atrial fibrillation: Code(s): I48.19 - Other persistent atrial fibrillation Category: Medical Plan: Patient is currently still in atrial fibrillation He has a [id number] score of 3, so anticoagulation is indicated - he is currently on Eliquis 2.5 mg BID Repeat echocardiogram done in May 2023 revealed a normal LV ejection fraction at 55-60%, with a mildly dilated left atrium, mild aortic regurgitation, mildly dilated ascending aorta at 3.8 cm and normal RV systolic pressure with mildly elevated right atrial pressures. No gross pericardial effusion is seen. Compared to his previous echo in 2016, the ascending aorta dilatation has increased slightly He declined offer to start him back on a beta martinez at his last visit but as his heart rate remains controlled, beta blockade is not really necessary at this time Follow up with cardiology as scheduled (2) Benign essential hypertension: Code(s): I10 - Essential (primary) hypertension Category: Medical Plan: His BP currently remains well-controlled Reinforced low sodium diet - goal is systolic BP of at least 130 to 140 mm or less Patient is presently not on any Rx for his BP (by choice) - he recalls that he felt worse when he was started on Rx for his blood pressure in the past and he prefers to continue controlling his BP without Rx as much as possible Patient is reminded to continue monitoring his blood pressure regularly (3) Osteoarthritis of knees, bilateral: Code(s): M17.0 - Bilateral primary osteoarthritis of knee Category: Medical Qualifiers: Osteoarthritis type: primary Qualified Code(s): M17.0 - Bilateral primary osteoarthritis of knee Plan: Patient states that his knee pain remain mostly manageable and he just takes some OTC Tylenol as needed with (+) relief No other intervention is needed or requested for at this time (4) Vitamin D deficiency: Code(s): E55.9 - Vitamin D deficiency, unspecified Category: Medical Plan: Continue Vitamin D3 1000 units QD (5) Adenocarcinoma of prostate: Code(s): C61 - Malignant neoplasm of prostate Category: Medical Plan: He was recently diagnosed with adenocarcinoma of the prostate and has been referred by urology to radiation oncology for further evaluation and management Follow up with urology as scheduled Plan Follow up in 4 months Orders: Orders Lipid Panel 4 Months E78.00 - Pure hypercholesterolemia, unspecified Complete Blood Count Auto Diff 4 Months D64.9 - Anemia, unspecified Comprehensive [place]. Panel Fast 4 Months E78.00 - Pure hypercholesterolemia, unspecified TSH reflex Free T4 4 Months E78.00 - Pure hypercholesterolemia, unspecified UA CC w/rflx Micro + Cult 4 Months R30.0 - Dysuria
== END 2024-03-09 11:13 | disposition home or self-care (01) ==
LOC: HO.HMCH 10:32
PROVIDERS: PCP Internal Medicine; Visit Provider Internal Medicine
DX: I48.19 Other persistent atrial fibrillation (principal); C61 Malignant neoplasm of prostate; I10 Essential (primary) hypertension; M17.0 Bilateral primary osteoarthritis of knee; E55.9 Vitamin D deficiency, unspecified

== ENCOUNTER → 2024-03-09 10:31 | Outpatient (BNVA) | payer MEDICARE, SELFPAY | PROVIDERS: PCP Internal Medicine; Visit Provider Internal Medicine | DX: I48.19 Other persistent atrial fibrillation (principal); I10 Essential (primary) hypertension; M17.0 Bilateral primary osteoarthritis of knee; E55.9 Vitamin D deficiency, unspecified; C61 Malignant neoplasm of prostate | CPT/HCPCS: 96127; 99212 ==

== ENCOUNTER 2024-03-12 11:02 | Outpatient (REF) | payer MEDICARE, SELFPAY ==
[2024-03-12 13:26] LABS: Prostate Specific Antigen 3.71 ng/mL (<0.05-4.0)
== END 2024-03-12 11:03 | disposition home or self-care (01) ==
LOC: HO.LAB 11:02
PROVIDERS: PCP Internal Medicine; Visit Provider Urology
DX: N32.89 Other specified disorders of bladder (principal); I10 Essential (primary) hypertension; Z12.5 Encounter for screening for malignant neoplasm of prostate
CPT/HCPCS: 36415; 84153

== ENCOUNTER 2024-03-26 11:31 | Outpatient (AMB) | payer MEDICARE, SELFPAY ==
--- NOTE | 2024-03-25 16:15 | A.OFFVIS_ITS ---
Intake Visit Reasons: 4m/PSA Intake Note: Patient is present for 4M/PSA Urology Medication:TAMSULOSIN,DUTASTERIDE Antibiotic Allergy:NONE Blood Thinner:ELIQUIS [employer] Required: No Allergies No Known Allergies [No Known Allergies*] Allergy (Verified 03/26/24 11:37) HPI Comments Details: 03/26/24--4 month FU- on active surveillance for prostate cancer was started on avodart. Monitor PSA. PSA - 07/15/23--5.39 PSA 03/12/24--3.71 Previous workup has included a retroperitoneal ultrasound noting right kidney with no lesions or hydronephrosis. There appears to be a 0.5 cm echogenic calyceal stone in the region of the mid to lower pole. Left kidney with no calculi, lesions, and or hydronephrosis noted. Review of chart: 11/18/23--Lane is s/p prostate biopsy 11/01/23, I have reviewed pathology results-- left -diana 7, grade group 2. Discussed treatment options- surgery, radical prostatectomy, radiation therapy and active surveillance, give his age and PSA, plan discussed active surveillance, will repeat PSA in 4 months, start avodart 0.5 mg daily. 08/31/23--Lane is a very pleasant 78-year-old male patient of Dr. Mathis. He has a PMH of vitamin-D deficiency, osteoarthritis, atrial fibrillation, and hyperlipidemia. He presents to the office today for follow-up of his elevated PSA. Recent PSA results reviewed with the patient today. As noted: PSA: 08/25 2.3, 07/30 5.4, 07/30 5.1 % free PSA 6%. Previous workup has included a retroperitoneal ultrasound noting right kidney with no lesions or hydronephrosis. There appears to be a 0.5 cm echogenic calyceal stone in the region of the mid to lower pole. Left kidney with no calculi, lesions, and or hydronephrosis noted. The bladder wall is slightly thickened, trabeculated appearance. Bilateral ureteral jets are demonstrated. Pre void bladder volume is approximately 300 mL. Postvoid bladder volume is approximately 120 mL. No evidence of bladder mass or stone. Prostate measures approximately 37 mL. Discussed at length potential causes for elevated PSA. PCPT risk calculator results reviewed with the patient today. 5% chance prostate biopsy is negative, 46% chance of low-grade prostate cancer, and 49% chance of high-grade prostate cancer. Discussed at length further treatment options with surveillance monitoring verses trial of finasteride versus prostate biopsy. Risks and benefits of these interventions were discussed. He otherwise denies any bothersome urinary issues. He reports be happy with current voiding parameters on 0.4 mg of Flomax daily. In office urinalysis results reviewed with the patient today. When asked he denies any known history of family prostate cancer. He otherwise offers no other issues or concerns at this time. [facility] Medical History Overweight (BMI 25.0-29.9) Vitamin D deficiency Osteoarthritis of knees, bilateral Persistent atrial fibrillation Benign essential hypertension Overactive bladder Benign prostatic hyperplasia Hyperlipidemia Surgical History History of colonoscopy History of hernia surgery Family History Mother No problems noted. Father No problems noted. Social History Housing: Apartment Alcohol intake: never Patient Tobacco Use Status: Former Tobacco user e-Cigarette/Vaping Use: Never Used Second Hand Smoke Exposure: Yes service: No Current occupational status: retired Cognitive needs: No Hearing needs: No Vision needs: Yes Review of Systems Const All systems reviewed & are unremarkable except as noted in HPI and below Reports no additional complaints Eyes Reports no additional complaints ENT Reports no additional complaints Card Reports no additional complaints Resp Reports no additional complaints GI Reports no additional complaints Reports as per HPI Musc Reports no additional complaints Skin/Breast Reports system reviewed and no additional complaints, except as documented Neuro Reports no additional complaints Psych Reports no additional complaints Endo Reports no additional complaints Hayden/Lymph Reports no additional complaints Aller/Immun Reports no additional complaints Results AMB Urinalysis, Automated UA Leukoctes 125 Ntaaliya/uL Last Edit by CHELSEA Eli on 03/26/24 11:55 UA Nitrite Negative Last Edit by CHELSEA Eli on 03/26/24 11:55 UA Urobilinogen 0.2 mg/dL Last Edit by CHELSEA Eli on 03/26/24 11:5 5 UA Protein 15 mg/dL Last Edit by Ignacia Craven CCM on 03/26/24 11:55 UA pH 6.0 Last Edit by Ignacia Craven CCM on 03/26/24 11:55 UA Blood 10 Darío/uL Last Edit by Ignacia Craven CCM on 03/26/24 11:55 UA Specific [place] 1.020 Last Edit by Ignacia Craven CCM on 03/26/24 11: 55 UA Ketone Negative Last Edit by Ignacia Craven CCM on 03/26/24 11:55 UA Bilirubin 0 mg/dL Last Edit by Ignacia Craven CCM on 03/26/24 11:55 UA Glucose 0 mg/dL Last Edit by CHELSEA Eli on 03/26/24 11:55 Results Reviewed Results Reviewed: Laboratory Last Values Urine pH (Auto) 6.0 03/26/24 11:51 Specific [place] (Auto) 1.020 03/26/24 11:51 Urine Protein (Auto) 15 mg/dL 03/26/24 11:51 Glucose (UA)(Auto) 0 mg/dL 03/26/24 11:51 Urine Ketones (Auto) Negative 03/26/24 11:51 Urine Blood (Auto) 10 Darío/uL 03/26/24 11:51 Urine Nitrite (Auto) Negative 03/26/24 11:51 Urine Bilirubin (Auto) 0 mg/dL 03/26/24 11:51 Urine Urobilinogen (Auto) 0.2 mg/dL 03/26/24 11:51 Leukocyte Esterase (Auto) 125 Nataliya/uL 03/26/24 11:51 Collected: 11/01/23 Location: [facility] Received: 11/01/23 Diagnosis Prostate, needle core biopsies: A. Left base lateral: Benign prostatic tissue. B. Left base medial: Benign prostatic tissue. C. Left mid lateral: Prostatic adenocarcinoma, [place] score 7 (3+4), grade group 2, 45% pattern 4, 4 mm, 24% of core and high-grade prostatic intraepithelial neoplasia. D. Left mid medial: Prostatic adenocarcinoma, Diana score 7 (3+4), grade group 2, 35% pattern 4, 11 mm, 69% of core, high-grade prostatic intraepithelial neoplasia and perineural invasion. E. Left apex lateral: Prostatic adenocarcinoma, [place] score 7 (3+4), grade group 2, 5% pattern 4, 12 mm, 80% of core and perineural invasion. F. Left apex medial: Prostatic adenocarcinoma, [place] score 7 (3+4), grade group 2, 5% pattern 4, 9 mm, 64% of core. G. Right base lateral: Benign prostatic tissue. H. Right base medial: Benign prostatic tissue. I. Right mid lateral: Benign prostatic tissue. J. Right mid medial: Benign prostatic tissue. K. Right apex lateral: Benign prostatic tissue. L. Right apex medial: Benign prostatic tissue. Data synopsis - Prostate needle biopsy Histologic type: Adenocarcinoma, acinar type Histologic grade: [place] score: 7 (3+4) (left mid lateral and medial, left apex lateral and medial) % of pattern 4: 19 % % of pattern 5: 0 % Grade group: 2 Date of Service: 07/01/23 EXAMINATION: US RETROPERITONEAL COMPLETE (RENAL) FINDINGS: RIGHT KIDNEY: 10.1 x 4.8 x 5.5 cm (SAG x AP x TRV). The kidney is normal in size, contour, and echogenicity. Renal cortical thickness is normal. No focal parenchymal lesions or hydronephrosis. There appears to be a 0.5 cm echogenic calyceal stone in region of the [id number] pole (image 36 of 50). LEFT KIDNEY: 10.5 x 5.4 x 5.9 cm (SAG x AP x TRV). The kidney is normal in size, contour, and echogenicity. Renal cortical thickness is normal. No calculi, hydronephrosis or focal parenchymal lesions. BLADDER: The bladder wall has a slightly thickened, trabeculated appearance. Correlate for any clinical signs/symptoms of bladder outlet pathology. Bilateral ureteral jets are demonstrated. Prevoid bladder volume is 298 mL. Postvoid bladder volume is 118 mL. No evidence of bladder mass or stone. ADDITIONAL FINDINGS: Note that the prostate gland is not adequately visualized for acquisition of an accurate size measurement. There is no pelvic free fluid. IMPRESSION: * There appears to be a solitary stone of the left kidney. * No hydronephrosis. Otherwise, kidneys are unremarkable. * The urinary bladder wall has a mildly thickened, trabeculated appearance. This could be a manifestation of a chronic partial bladder outlet obstruction. Assessment & Plan Assessment & Plan (1) Elevated PSA: Code(s): R97.20 - Elevated prostate specific antigen [PSA] Category: Medical (2) Nephrolithiasis: Code(s): N20.0 - Calculus of kidney Category: Medical (3) Adenocarcinoma of prostate: Code(s): C61 - Malignant neoplasm of prostate Category: Medical Plan Active Surveillance PSA in 4 months, avodart 0.5 mg daily monitor kidney stones Orders: Orders AMB Urinalysis Automated 03/26/24 Z13.9 - Encounter for screening, unspecified PSA,Total (Free>4and<10) 4 Months C61 - Malignant neoplasm of prostate, R97.20 - Elevated prostate specific antigen [PSA] US renal BI 2 Months N20.0 - Calculus of kidney Coding Level of Care Code Est Pt Level 4 (55340) Diagnoses Elevated PSA R97.20 Nephrolithiasis N20.0 Adenocarcinoma of prostate C61
== END 2024-03-26 12:18 | disposition home or self-care (01) ==
PROVIDERS: PCP Internal Medicine; Visit Provider Urology
DX: R97.20 Elevated prostate specific antigen [PSA] (principal); N20.0 Calculus of kidney; C61 Malignant neoplasm of prostate
CPT/HCPCS: 99214

== ENCOUNTER → 2024-03-26 11:31 | Outpatient (BNVA) | payer MEDICARE, SELFPAY | PROVIDERS: PCP Internal Medicine; Visit Provider Urology | DX: R97.20 Elevated prostate specific antigen [PSA] (principal); N20.0 Calculus of kidney; C61 Malignant neoplasm of prostate | CPT/HCPCS: 81003; 99212 ==

== ENCOUNTER → 2024-04-06 11:15 | Outpatient (BNV) | payer MEDICARE, SELFPAY ==
--- NOTE | 2024-04-06 11:15 | A.OFFPC_ITS ---
Intake Visit Reasons: Amb Documentation Allergies No Known Allergies [No Known Allergies*] Allergy (Verified 03/26/24 11:37) Tobacco use date assessed: 03/09/24 Dental Screening Dental Screen Date: 03/09/24 HPI Amb Documentation HPI Details 79 year old with prostate cancer having congestion on fevers, mylagia but has coughing. tested wed covid positive. PFSH Medical History Overweight (BMI 25.0-29.9) Vitamin D deficiency Osteoarthritis of knees, bilateral Persistent atrial fibrillation Benign essential hypertension Overactive bladder Benign prostatic hyperplasia Hyperlipidemia Surgical History History of colonoscopy History of hernia surgery Family History Mother No problems noted. Father No problems noted. Social History Housing: Apartment Alcohol intake: never Patient Tobacco Use Status: Former Tobacco user e-Cigarette/Vaping Use: Never Used Second Hand Smoke Exposure: Yes service: No Current occupational status: retired Cognitive needs: No Hearing needs: No Vision needs: Yes Questionnaire Thrive Questionnaire Date Thrive assessed: 03/09/24 VERNON-7 AMB Questionnaire VERNON-7 Date VERNON - 7 assessed: 03/09/24 Source: Developed by Drs. Santo Hayes, Carol Valdovinos, Navi Heard and colleagues, with an educational caroline from [employer]. Physical exam (Primary Care) Tobacco/Smoking Status: Tobacco use Status Tobacco use date assessed 03/09/24 03/09/24 11:01 Patient Tobacco Use Status Former Tobacco user 03/09/24 11:01 e-Cigarette/Vaping Use Never Used 03/09/24 11:01 Thrive Assessment: Date of Thrive Assessment Date Thrive assessed 03/09/24 03/09/24 11:01 Telehealth Telehealth Telehealth Platform: Telephone Location of provider rendering services: practice address Location of patient: address on file Patient Identification confirmed using: Name, : Yes Telehealth method: voice only Patient verbally consented to billing insurance company: Yes Patient informed of any privacy concerns related to visit: Yes Minutes spent on Phone/Video with Pt.: 15 Coding Level of Care Code Tele Est Pt Level 3 (08664) Diagnoses COVID-19 virus infection U07.1 Assessment & Plan Assessment & Plan (1) COVID-19 virus infection: Comment: 04/04/2024 Code(s): U07.1 - COVID-19 Category: Medical Plan: Antiviral sent in discussed with the family that it is interacting with tamsulosin and the Eliquis. Patient is on half dose of the Eliquis BUN creatinine are normal. Advised to hold off from tamsulosin for the next 5 days while on the antiviral. For the sore throat can take Cepacol lozenges, discussed about Delsym to help with dry cough so she can rest and advised to increase oral fluids. Patient also can take Tylenol for chills and fever. Medications: New nirmatrelvir-ritonavir 300 mg (150 mg x 2)-100 mg (Paxlovid) take TWO 150 mg tablets of nirmatrelvir with ONE 100 mg tablet of ritonavir twice daily for 5 days PO 30 ea 0RF U07.1 - COVID-19 nirmatrelvir-ritonavir 300 mg (150 mg x 2)-100 mg (Paxlovid) take TWO 150 mg tablets of nirmatrelvir with ONE 100 mg tablet of ritonavir twice daily for 5 days PO 30 ea 0RF U07.1 - COVID-19
== END ==
PROVIDERS: PCP Internal Medicine; Visit Provider Internal Medicine
DX: U07.1 COVID-19 (principal)
CPT/HCPCS: G2252

== ENCOUNTER 2024-07-11 13:25 | Outpatient (AMB) | payer MEDICARE, SELFPAY ==
[2024-07-11 13:28] VITALS: BP 162/88; PULSE 84; RESP 20; TEMP 36.3; O2SAT 97; BMI 25.1
--- NOTE | 2024-07-11 13:28 | A.OFFPC_ITS ---
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 Accompanied by: Daughter Allergies No Known Allergies [No Known Allergies*] Allergy (Verified 07/11/24 13:50) Medication List - Last Reconciled 07/11/24 by ELIOT Prater ascorbate calcium (vitamin C) 500 mg PO DAILY blood pressure monitor (Blood Pressure Kit) As directed dutasteride 0.5 mg PO DAILY 90 days Eliquis (apixaban) 2.5 mg PO BID 30 days NS multivitamin with minerals 1 cap PO DAILY tamsulosin 0.4 mg PO BEDTIME 90 days Tobacco use date assessed: 07/11/24 Fall risk assessment: 1 Fall in past year Last assessed Fall Risk: 07/11/24 Dental Screening Dental Screen Date: 07/11/24 Did you have a dental visit in the last 12 months?: No Did you have a dental problem in the last 6 months where you did not have access to dental care?: No HPI 6 Months f/u HPI Details The patient is a 79-year-old male who was presenting for follow up chronic conditions, accompanied by daughter Significant past medical history adenocarcinoma of prostate, bladder wall thickening, elevated PSA, persistent atrial fibrillation on Eliquis, and benign essential hypertension The patient reports that he was unable to get his blood work done before appointment Encouraged the patient to get these done as soon as possible Patient reports that he is feeling okay today but about 3 weeks ago he had cold symptoms Reports that he is still coughing up phlegm intermittently and that he has been using Mucinex Patient blood pressure was elevated in office. Rechecked blood pressure remained similar Discussed with patient about his hydration, per patient he only drinks juice and it is not like water Reports intermittently constipation-discussed with patient that he should increase his fluid intake/dietary fiber Patient reports that he does not like mixing and drinking fiber The patient was shown different fiber gummies that he could get OTC Patient reports that he has urinary symptoms has significantly improved He denies chest pain, shortness of breath, heart palpitation dizziness [facility] Medical History Overweight (BMI 25.0-29.9) Vitamin D deficiency Osteoarthritis of knees, bilateral Persistent atrial fibrillation Benign essential hypertension Overactive bladder Benign prostatic hyperplasia Hyperlipidemia Surgical History History of colonoscopy History of hernia surgery Family History Mother No problems noted. Father No problems noted. Social History Housing: Apartment Alcohol intake: never Patient Tobacco Use Status: Former Tobacco user e-Cigarette/Vaping Use: Never Used Second Hand Smoke Exposure: Yes service: No Current occupational status: retired Cognitive needs: No Hearing needs: No Vision needs: Yes Questionnaire PHQ-9 Over the last 2 weeks, how often have you been bothered by any of the following problems? 1. Little interest or pleasure in doing things: not at all 2. Feeling down, depressed, or hopeless: not at all 3. Trouble falling or staying asleep, or sleeping too much: not at all 4. Feeling tired or having little energy: not at all 5. Poor appetite or overeating: not at all 6. Feeling bad about yourself - or that you are a failure or have let yourself or your family down: not at all 7. Trouble concentrating on things, such as reading the newspaper or watching television: not at all 8. Moving or speaking so slowly that other people could have noticed. Or the opposite - being so fidgety or restless that you have been moving around a lot more than usual: not at all 9. Thoughts that you would be better off or of hurting yourself in some w ay: not at all Total score: 0 Depression Screening Interpretation: Negative Depression Screening Done: Yes 49661 - PHQ-9 Billing: Yes Source: Developed by Drs. Santo Hayes, Carol Valdovinos, Navi Heard and colleagues, with an educational caroline from [employer]. Thrive Questionnaire Date Thrive assessed: 07/11/24 I am a: Patient What is your living situation today?: I have a steady place to live Within the past 12 months, did the food you bought not last and you didn't have the money to get more?: Never true Within the past 12 months, did you worry whether your food would run out before you got money to buy more?: Never true Do you have trouble paying for medicines?: No Do you have trouble getting transportation to medical appointments?: No Do you have trouble paying your heating and electricity bill?: No Do you have trouble taking care of your child, family member or friend?: No Do you have trouble with day-to-day activities such as bathing, preparing meals, shopping, managing finances, etc.?: No Are you currently unemployed and looking for a job?: No Are you interested in more education?: No Please select the resources that you would like help with: None Currently or been in a relationship where the following occur: No concerns reported THRIVE Score: 0 AUDIT C Alcohol Use Questionnaire (AUDIT-C) 1. How often do you have a drink containing alcohol?: Never 3. How often do you have six or more drinks on one occasion?: Never Total Score: 0 Score Reviewed/Action Taken: Yes VERNON-7 AMB Questionnaire VERNON-7 Date VERNON - 7 assessed: 07/11/24 Feeling nervous, anxious, or on edge: 0 = Not at all Not being able to stop or control worryin = Not at all Worrying too much about different things: 0 = Not at all Trouble relaxin = Not at all Being so restless that it is hard to sit still: 0 = Not at all Becoming easily annoyed or irritable: 0 = Not at all Feeling afraid as if something awful might happen: 0 = Not at all Total VERNON-7 score (0-4 normal; 5-9 mild; 10-14 moderate; 15-21 severe): 0 Source: Developed by Drs. Santo Hayes, Carol Valdovinos, Navi Heard and colleagues, with an educational caroline from [employer]. VERNON-7 Assessment Billing VERNON-7 Assessment Tool: VERNON-7 Assessment 07685 Review of Systems Const Details: Denies chills, Denies fatigue, Denies fever(s), Denies headache(s) and Denies weakness HEENT Denies change in vision, Denies dizziness, Denies headache(s), Denies hearing loss, Denies nasal congestion, Denies sinus pain, Denies sinus pressure and Denies sore throat Card Denies chest pain, Denies lightheadedness, Denies dyspnea and Denies other (pa lpitations) Resp Denies cough, Denies dyspnea and Denies wheezing GI Denies abdominal pain, Denies melena, Denies hematochezia, Denies change in bowel habits (intermittent chronic constipation), Denies dyspepsia and Denies nausea Denies hematuria and Denies dysuria, reports urinary frequency-improved with tx Musc Denies abnormal gait, Denies myalgias, + arthralgias (bilateral knees), Denies numbness and Denies tingling Skin/Breast Denies rash, Denies unusual bruising and Denies wounds Neuro Denies abnormal gait, Denies dizziness, Denies headache(s), Denies memory loss, Denies numbness, Denies Sensory deficit (Neuro), Denies tingling and Denies weakness Psych Denies anxiety, Denies depression and Denies memory loss Endo Denies cold intolerance, Denies fatigue, Denies heat intolerance, Denies polydipsia and Denies polyuria Hayden/Lymph Denies easy bleeding and Denies easy bruising Aller/Immun Denies wheezing Physical exam (Primary Care) Vital Signs: Last Vital Signs Temp 97.3 F 07/11/24 13:28 Pulse 84 07/11/24 13:28 Resp 20 07/11/24 13:28 BP 162/88 H 07/11/24 13:28 Pulse Ox 97 07/11/24 13:28 Oxygen Delivery Method Room Air 07/11/24 13:28 BMI result Body Mass Index 25.1 Tobacco/Smoking Status: Tobacco use Status Tobacco use date assessed 07/11/24 07/11/24 13:33 Patient Tobacco Use Status Former Tobacco user 07/11/24 13:33 e-Cigarette/Vaping Use Never Used 07/11/24 13:33 PHQ-9: PHQ-9 Score PHQ-9: Total score 0 07/11/24 14:00 Depression Screening Interpretation: Negative Thrive Assessment: Date of Thrive Assessment Date Thrive assessed 07/11/24 07/11/24 13:33 Currently or been in a relationship where the following occur: No concerns reported Const Other: General: no acute distress, well developed, alert and awake Nutritional Appearance: well nourished Orientation/consciousness: patient oriented x3 HENMT Head: Yes normocephalic and Yes atraumatic Ears: hearing grossly normal bilaterally and TM's normal bilaterally General nose exam: Normal external nose present and Normal nares present Mouth: Normal oral and palatal mucosa present and moist mucous membranes Eyes Pupils: Equal, round and reactive pupils present and Pupil accommodation reflex normal EOM: EOMs intact bilaterally Neck Neck: Yes normal visual inspection, Yes no lymphadenopathy and Yes trachea midline Thyroid: Thyroid normal Carotids: no bruits Lymphatic: no lymphadenopathy noted Resp Effort & Inspection: normal respiratory effort Auscultation: clear to auscultation bilaterally Cardio Rate: regular rate Rhythm: irregular Heart sounds: S1 normal heart sound present, S2 normal heart sound present, no gallops, no murmurs and no rubs GI Palpation (GI): Abdomen is soft and nontender Auscultation: normal bowel sounds General: Yes no CVA tenderness Back/Spine/Pelvis Back: no CVA tenderness Cervical Spine: cervical ROM normal and No Cervical spine tenderness Thoracic/Lumbar Spine: thoraco-lumbar no tenderness Detail: bilateral knees no tender to palpation Skin General: warm and dry. Normal skin color. Normal skin turgor Lesions: no lesions Rashes: no rashes Trauma: no lacerations or abrasions Wounds: no wounds Nails: normal Neuro General: patient oriented x3, gait normal Cranial nerves: Yes Equal, round and reactive pupils present Cognition (Neuro): normal cognition Gait exam (Neuro): Normal gait present Extrem General: Yes normal to inspection, No edema and No calf tenderness Psych Appearance: grossly normal Affect: normal affect Attitude: cooperative Thought process: Normal thought process present Coding Level of Care Code Est Pt Level 4 (01823) Diagnoses Adenocarcinoma of prostate C61 Primary osteoarthritis of both knees M17.0 Osteoarthritis type: primary Persistent atrial fibrillation I48.19 Benign essential hypertension I10 Urinary frequency R35.0 Constipation, unspecified constipation type K59.00 Constipation type: unspecified constipation type Additional Codes VERNON-7 Assessment Billing - VERNON-7 Assessment Tool: VERNON-7 Assessment 30842 ([id number]) PHQ-9 - 97793 - PHQ-9 Billing: Yes ([id number]) Time Spent (min) 39 Assessment & Plan Assessment & Plan (1) Adenocarcinoma of prostate: Code(s): C61 - Malignant neoplasm of prostate Category: Medical Plan: 11/18/23--Lane is s/p prostate biopsy 11/01/23, I have reviewed pathology results-- left -diana 7, grade group 2. Discussed treatment options- surgery, radical prostatectomy, radiation therapy and active surveillance, give his age and PSA, plan discussed active surveillance by urology Undergoing treatment with dutasteride 0.5 mg daily (2) Osteoarthritis of knees, bilateral: Code(s): M17.0 - Bilateral primary osteoarthritis of knee Category: Medical Qualifiers: Osteoarthritis type: primary Qualified Code(s): M17.0 - Bilateral primary osteoarthritis of knee Plan: Patient states that his knee pain remain mostly manageable and he just takes some OTC Tylenol as needed with (+) relief No other intervention is needed or requested for at this time (3) Persistent atrial fibrillation: Code(s): I48.19 - Other persistent atrial fibrillation Category: Medical Plan: Patient is currently still in atrial fibrillation He has a [id number] score of 3, so anticoagulation is indicated - he is currently on Eliquis 2.5 mg BID Repeat echocardiogram done in May 2023 revealed a normal LV ejection fraction at 55-60%, with a mildly dilated left atrium, mild aortic regurgitation, mildly dilated ascending aorta at 3.8 cm and normal RV systolic pressure with mildly elevated right atrial pressures. No gross pericardial effusion is seen. Compared to his previous echo in 2016, the ascending aorta dilatation has increased slightly Follow up with cardiology as scheduled (4) Benign essential hypertension: Code(s): I10 - Essential (primary) hypertension Category: Medical Plan: Reinforced low-sodium diet Blood pressure elevated in office 162/88, rechecked blood pressure after having the patient relax for few minutes remained elevated and similar to the charted BP. Discussed with the patient about the risk of elevated blood pressure while on anticoagulation Lisinopril 5 mg daily started. The patient and daughter was encourage to check blood pressure at least two times a day The paient to return in 1 week for BP check (5) Urinary frequency: Code(s): R35.0 - Frequency of micturition Category: Medical Plan: The patient reports that his urinary symptom has decreased significantly continue tamsulosin 0.4 mg at bedtime (6) Constipation: Code(s): K59.00 - Constipation, unspecified Category: Medical Qualifiers: Constipation type: unspecified constipation type Qualified Code(s): K59.00 - Constipation, unspecified Plan: Reports intermittently constipation-discussed with patient that he should increase his fluid intake/dietary fiber Patient reports that he does not like mixing and drinking fiber The patient was shown different fiber gummies that he could get OTC Plan The patient to return 1 wk for blood pressure check Medications: New lisinopril 5 mg PO DAILY 30 tabs 0RF I10 - Essential (primary) hypertension
== END 2024-07-11 14:16 | disposition home or self-care (01) ==
PROVIDERS: PCP Internal Medicine
DX: C61 Malignant neoplasm of prostate (principal); M17.0 Bilateral primary osteoarthritis of knee; I48.19 Other persistent atrial fibrillation; I10 Essential (primary) hypertension; R35.0 Frequency of micturition; K59.00 Constipation, unspecified

== ENCOUNTER → 2024-07-11 13:25 | Outpatient (BNVA) | payer MEDICARE, SELFPAY | PROVIDERS: PCP Internal Medicine | DX: C61 Malignant neoplasm of prostate (principal); M17.0 Bilateral primary osteoarthritis of knee; I48.19 Other persistent atrial fibrillation; I10 Essential (primary) hypertension; R35.0 Frequency of micturition; K59.00 Constipation, unspecified | CPT/HCPCS: 96127; 99212 ==

== ENCOUNTER 2024-07-16 07:02 | Outpatient (REF) | payer MEDICARE, SELFPAY ==
[2024-07-16 07:17] LABS: MANUAL DIFF FLAG NO
[2024-07-16 07:37] LABS: Basophils Absolute Auto 0.1 X10*3/uL (0.0-0.2); Basophils Percent Auto 0.9 % (0-2); Eosinophils Absolute Auto 0.4 X10*3/uL (0.0-0.4); Eosinophils Percent Auto 5.5 % (0-4); Imm Gran Abs Auto 0.02 X10*3/uL (0.00-0.03); Imm Gran Pct Auto 0.3 % (0.0-0.4); Lymphocytes Absolute Auto 2.1 X10*3/uL (1.2-4.9); Mean Corpuscular HGB Conc 32.7 g/dl (31.0-36.0); Mean Corpuscular Hemoglobin 28.5 pg (27.0-33.0); Mean Corpuscular Volume 87.3 fL (80.0-98.0); Mean Platelet Volume 10.3 fL (9.4-12.4); Monocytes Absolute Auto 0.7 X10*3/uL (0.1-1.2); Neutrophils Absolute Auto 3.5 x10*3/uL (2.0-8.3); Neutrophils Percent Auto 52.3 % (45-73); Platelet Count 206 X10*3/uL (160-400); Red Blood Count 5.61 X10*6/uL (4.60-5.80); Red Cell Distribution Width 14.5 % (11.0-16.0); White Blood Count 6.7 X10*3/uL (4.8-10.8)
[2024-07-16 08:04] LABS: Appearance Urine Cloudy; Color Urine Yellow; Glucose Urine UA Negative (Negative); Leukocyte Esterase Urine Large (3+) (Negative); Nitrite Urine Negative (Negative); Specific Gravity - Urine 1.015 (1.005-1.025); UMIC TRIGGER UACC YES; Urine Blood Trace (Negative); Urine Ketones Negative (Negative); Urine Protein Negative (Neg-Trace)
[2024-07-16 08:06] LABS: Bacteria Urine 4+ (None Seen); Hyaline Casts Urine 0-2 /LPF (0-2); RBC Urine 0-2 /HPF (0-2); Squamous Epithelial Cell Urine 0-2 /HPF (0-2); UACC Culture Trigger YES; WBC Urine >50 /HPF (0-5)
[2024-07-16 08:22] LABS: PSA,Total (Free>4and<10) 3.38 ng/mL (0.00-4.00)
[2024-07-16 08:46] LABS: Alanine Aminotransferase 40 U/L (0-40); Alkaline Phosphatase 52 U/L (39-117); Anion Gap 13 (12-20); Blood Urea Nitrogen 19 mg/dL (9-16); Calcium 9.7 mg/dL (8.4-10.2); Carbon Dioxide 25 mmol/L (22-29); Chloride 109 mmol/L (96-108); Cholesterol 183 mg/dL (<200); Estimated Glomerular Filt Rate > 60; Glucose Fasting 103 mg/dL (60-99); HDL Cholesterol 35 mg/dL (>40); LDL Cholesterol Calculated 123 mg/dL (<100); Potassium 4.4 mmol/L (3.3-5.1); Sodium 143 mmol/L (135-145); TSH reflex Free T4 2.04 uIU/mL (0.32-4.0); Triglycerides 129 mg/dL (<150)
[2024-07-16 08:58] LABS: Aspartate Amino Transferase 32 U/L (5-37)
== END 2024-07-16 07:03 | disposition home or self-care (01) ==
LOC: HO.LAB 07:02
PROVIDERS: Urology; PCP Internal Medicine; Visit Provider Internal Medicine
DX: D64.9 Anemia, unspecified (principal); C61 Malignant neoplasm of prostate; R97.20 Elevated prostate specific antigen [PSA]; E78.00 Pure hypercholesterolemia, unspecified; Z12.5 Encounter for screening for malignant neoplasm of prostate
CPT/HCPCS: 36415; 80053; 80061; 81001; 81003; 84153; 84443; 85025; 87086; 87147

== ENCOUNTER 2024-07-17 14:20 | Outpatient (AMB) | payer MEDICARE, SELFPAY ==
[2024-07-17 14:29] VITALS: BP 138/74; PULSE 86; RESP 20; TEMP 36.5; O2SAT 97; BMI 25.5
--- NOTE | 2024-07-17 14:29 | MHC.PC.OV ---
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 Required: No Accompanied by: Daughter Allergies No Known Allergies [No Known Allergies*] Allergy (Verified 07/17/24 14:37) Medication List - Last Reconciled 07/17/24 by ELIOT Prater ascorbate calcium (vitamin C) 500 mg PO DAILY blood pressure monitor (Blood Pressure Kit) As directed dutasteride 0.5 mg PO DAILY 90 days Eliquis (apixaban) 2.5 mg PO BID 30 days NS lisinopril 5 mg PO DAILY multivitamin with minerals 1 cap PO DAILY tamsulosin 0.4 mg PO BEDTIME 90 days Tobacco use date assessed: 07/11/24 Fall risk assessment: 1 Fall in past year Last assessed Fall Risk: 07/17/24 Dental Screening Dental Screen Date: 07/11/24 HPI elevated bp HPI Details The patient is a 79-year-old male who was presenting for follow up chronic conditions, accompanied by daughter Significant past medical history adenocarcinoma of prostate, bladder wall thickening, elevated PSA, persistent atrial fibrillation on Eliquis, and benign essential hypertension The patient blood pressure better today, labs reviewed with patient LDL slightly elevated and trending up, dietary modifications encouraged The patient urine was noted to have trace of blood in it. The patient is already seeing urology for CA and he has an upcoming appt His blood pressure today was 138/74 Denies any sob, chest pain, heart palpation or dizziness. He was Lisinopril 5 mg on his previous visit for elevated blood pressure. [facility], [facility] Medical History (Updated 07/22/24 @ 19:15 by ELIOT Prater) Hyperlipidemia Overweight (BMI 25.0-29.9) Vitamin D deficiency Osteoarthritis of knees, bilateral Persistent atrial fibrillation Benign essential hypertension Overactive bladder Benign prostatic hyperplasia Surgical History History of colonoscopy History of hernia surgery Family History Mother No problems noted. Father No problems noted. Social History Housing: Apartment Alcohol intake: never Patient Tobacco Use Status: Former Tobacco user e-Cigarette/Vaping Use: Never Used Second Hand Smoke Exposure: Yes service: No Current occupational status: retired Cognitive needs: No Hearing needs: No Vision needs: Yes Questionnaire Thrive Questionnaire Date Thrive assessed: 07/17/24 I am a: Patient What is your living situation today?: I have a steady place to live Within the past 12 months, did the food you bought not last and you didn't have the money to get more?: Never true Within the past 12 months, did you worry whether your food would run out before you got money to buy more?: Never true Do you have trouble paying for medicines?: No Do you have trouble getting transportation to medical appointments?: No Do you have trouble paying your heating and electricity bill?: No Do you have trouble taking care of your child, family member or friend?: No Do you have trouble with day-to-day activities such as bathing, preparing meals, shopping, managing finances, etc.?: No Are you currently unemployed and looking for a job?: No Are you interested in more education?: No Please select the resources that you would like help with: None Currently or been in a relationship where the following occur: No concerns reported THRIVE Score: 0 AUDIT C Alcohol Use Questionnaire (AUDIT-C) 1. How often do you have a drink containing alcohol?: Never 3. How often do you have six or more drinks on one occasion?: Never Total Score: 0 Score Reviewed/Action Taken: Yes VERNON-7 AMB Questionnaire VERNON-7 Date VERNON - 7 assessed: 07/11/24 Source: Developed by Drs. Santo Hayes, Carol Valdovinos, Navi Heard and colleagues, with an educational caroline from [email or web address]. Review of Systems Const Denies headache(s) Eyes Denies loss of vision ENT Denies vertigo, Denies dizziness, Denies headache(s) and Denies sore throat Card Denies chest pain, Denies leg edema and Denies lightheadedness Resp Denies cough, Denies hemoptysis and Denies wheezing GI Denies abdominal pain, Denies melena, Denies constipation, Denies diarrhea and Denies vomiting Denies dysuria, Denies urinary frequency and Denies urinary urgency Musc Denies arthralgias, Denies joint swelling, Denies numbness and Denies tingling Neuro Denies Abnormal speech present, Denies behavioral changes, Denies vertigo, Denies dizziness, Denies headache(s), Denies loss of vision, Denies memory loss, Denies numbness and Denies tingling Psych Denies anxiety, Denies behavioral changes, Denies depression, Denies memory loss and Denies panic attacks Hayden/Lymph Denies easy bleeding and Denies easy bruising Aller/Immun Denies wheezing Physical exam (Primary Care) Vital Signs: Last Vital Signs Temp 97.7 F 07/17/24 14:29 Pulse 86 07/17/24 14:29 Resp 20 07/17/24 14:29 BP 138/74 07/17/24 14:29 Pulse Ox 97 07/17/24 14:29 Oxygen Delivery Method Room Air 07/17/24 14:29 BMI result Body Mass Index 25.5 Tobacco/Smoking Status: Tobacco use Status Tobacco use date assessed 07/11/24 07/17/24 14:36 Patient Tobacco Use Status Former Tobacco user 07/17/24 14:36 e-Cigarette/Vaping Use Never Used 07/17/24 14:36 Thrive Assessment: Date of Thrive Assessment Date Thrive assessed 07/17/24 07/17/24 14:36 Currently or been in a relationship where the following occur: No concerns reported Const General: healthy appearing, no acute distress, alert and awake Nutritional Appearance: well nourished Orientation/consciousness: oriented to person, oriented to place and oriented to time [facility] Ears: TM's normal bilaterally General nose exam: Normal nasal mucous membranes and turbinates present Eyes Conjunctivae: conjunctivae normal Sclerae: sclerae normal Pupils: Equal, round and reactive pupils present Neck Neck: Yes no lymphadenopathy and Yes no JVD Thyroid: Thyroid normal Carotids: no bruits Resp Effort & Inspection: normal respiratory effort and not tachypneic Auscultation: no crackles, no rales, no rhonchi and no wheezes Cardio Rate: regular rate Rhythm: regular rhythm Heart sounds: no murmurs and normal S1 and S2 GI Palpation (GI): Soft to palpation, nontender, no hepatomegaly and no splenomegaly Auscultation: normal bowel sounds Skin General skin exam: no rashes or lesions noted and dry skin Neuro General: oriented to person, oriented to place and oriented to time Cranial nerves: Yes Equal, round and reactive pupils present Speech: No Abnormal speech present Gait exam (Neuro): Normal gait present Motor exam (neuro): no tremor noted Extrem Right upper extremity: full ROM Left upper extremity: full ROM Right lower extremity: full ROM; no edema Left lower extremity: full ROM; no edema Psych Mental Status: mental status grossly normal Speech and movement: Normal speech and movement present Affect: normal affect Attitude: cooperative Thought process: Normal thought process present Results Reviewed Results Reviewed: Laboratory Tests 07/16/24 07/16/24 07:14 07:15 WBC 6.7 RBC 5.61 Hgb 16.0 Hct 49.0 MCV 87.3 Plt Count 206 Sodium 143 Potassium 4.4 Chloride 109 H Carbon Dioxide 25 Anion Gap 13 BUN 19 H Creatinine 0.98 Estimated GFR > 60 Fasting Glucose 103 H AST 32 ALT 40 Triglycerides 129 Cholesterol 183 LDL Cholesterol, Calc 123 H HDL Cholesterol 35 L Total PSA 3.38 TSH 2.04 Urine Color Yellow Urine Appearance Cloudy Urine pH 5.0 Ur Specific [place] 1.015 Urine Protein Negative Urine Glucose (UA) Negative Urine Ketones Negative Urine Blood Trace H Urine Nitrite Negative Ur Leukocyte Esterase Large (3+) H Urine RBC 0-2 Urine WBC >50 H Ur Squamous Epith Cells 0-2 Urine Bacteria 4+ Hyaline Casts 0-2 Coding Level of Care Code Est Pt Level 3 (52038) Diagnoses Benign essential hypertension I10 Elevated PSA R97.20 Vitamin D deficiency E55.9 Constipation, unspecified constipation type K59.00 Constipation type: unspecified constipation type Asymptomatic microscopic hematuria R31.21 Hematuria type: asymptomatic microscopic Time Spent (min) 29 Assessment & Plan Assessment & Plan (1) Benign essential hypertension: Code(s): I10 - Essential (primary) hypertension Category: Medical Plan: Encouraged DASH diet and activity as tolerated. Refrain from alcohol use and if you smoke, smoking cessation is strongly advised Continue lisinopril 5 mg daily Continue monitoring blood pressure at home (2) Elevated PSA: Code(s): R97.20 - Elevated prostate specific antigen [PSA] Category: Medical Plan: The patient PSA 3.38. Reports that his urinary symptoms has been much better. Continue duasteride 0.5 mg daily and flomax 0.4 mg at bedtime (3) Vitamin D deficiency: Code(s): E55.9 - Vitamin D deficiency, unspecified Category: Medical Plan: Corporate vitamin-D rich foods (vitamin D fortified milk, orange juice, and cereals, cod liver oil; swordfish, salmon, schwab, mackerel, tuna, trout, egg yolk and mushrooms). Safe and appropriate exposure to sunlight can also help the body produce vitamin-D. (4) Constipation: Code(s): K59.00 - Constipation, unspecified Category: Medical Qualifiers: Constipation type: unspecified constipation type Qualified Code(s): K59.00 - Constipation, unspecified Plan: Increase fiber in diet (fruits/vegetables 4-5 servings daily) Increase fluid intake and decrease caffeine/energy drinks (may cause mild dehydration) Encouraged regular exercise (e.g., biking, walking, running) (5) Hematuria: Code(s): R31.9 - Hematuria, unspecified Category: Medical Qualifiers: Hematuria type: asymptomatic microscopic Qualified Code(s): R31.21 - Asymptomatic microscopic hematuria Plan: Trace of blood in urine. The patient is already seeing urology for adenocarcinoma of prostate and the patient is on Eliquis 2.5 mg BID that puts him an increased risk for bleeding. Will continue to monito
== END 2024-07-17 14:55 | disposition home or self-care (01) ==
LOC: HO.HMCH 14:21
PROVIDERS: PCP Internal Medicine
DX: I10 Essential (primary) hypertension (principal); R97.20 Elevated prostate specific antigen [PSA]; E55.9 Vitamin D deficiency, unspecified; K59.00 Constipation, unspecified; R31.21 Asymptomatic microscopic hematuria

== ENCOUNTER → 2024-07-17 14:20 | Outpatient (BNVA) | payer MEDICARE, SELFPAY | PROVIDERS: PCP Internal Medicine | DX: I10 Essential (primary) hypertension (principal); R97.20 Elevated prostate specific antigen [PSA]; E55.9 Vitamin D deficiency, unspecified; K59.00 Constipation, unspecified; R31.21 Asymptomatic microscopic hematuria | CPT/HCPCS: 99212 ==

== ENCOUNTER 2024-07-27 14:58 | Outpatient (REF) | payer MEDICARE, SELFPAY ==
--- NOTE | ~2024-07-27 | US_ITS ---
CLINICAL HISTORY: N20.0 - Calculus of kidney US Renal Comparison: None Findings: Right kidney normal size and echotexture, 9.1 cm length. Left kidney normal size and echotexture, 10.2 cm length. Right renal1.0 x 0.8 x 0.7 cm diverticulumwith calculus. No hydronephrosis of either kidney. Normal color Doppler IMPRESSION: 1. No acute findings. This document has been electronically signed by: Anirudh Cruz MD on 07/28/2024 08:52:18
== END 2024-07-27 14:59 | disposition home or self-care (01) ==
LOC: HO.US 14:58
PROVIDERS: PCP Internal Medicine; Visit Provider Urology
DX: N20.0 Calculus of kidney (principal)
CPT/HCPCS: 76775

== ENCOUNTER → 2024-07-27 14:59 | Outpatient (BNV) | payer MEDICARE, SELFPAY | PROVIDERS: PCP Internal Medicine; Visit Provider Specialist | DX: N20.0 Calculus of kidney (principal) | CPT/HCPCS: 76775 ==

== ENCOUNTER 2024-10-10 07:33 | Emergency (ER) | payer MEDICARE, SELFPAY ==
--- NOTE | 2024-10-10 | ECG_ITS ---
Test Reason : elevated BP Blood Pressure : */* mmHG Vent. Rate : 58 BPM Atrial Rate : * BPM P-R Int : * ms QRS Dur : 68 ms QT Int : 422 ms P-R-T Axes : * -31 -1 degrees QTcB Int : 414 ms Atrial fibrillation with slow ventricular response Left axis deviation Abnormal ECG When compared with ECG of 25-Mar-2023 19:46, Vent. rate has decreased by 31 bpm T wave inversion now evident in Inferior leads Referred By: Generic ED Physician Electronically Signed By: MINE ESPINOZA
[2024-10-10 08:05] VITALS: BP 157/73; PULSE 72; RESP 18; O2SAT 98; BMI 25.8
[2024-10-10 08:57] LABS: MANUAL DIFF FLAG NO
[2024-10-10 09:01] LABS: Basophils Absolute Auto 0.1 X10*3/uL (0.0-0.2); Basophils Percent Auto 1.2 % (0-2); Eosinophils Absolute Auto 0.3 X10*3/uL (0.0-0.4); Eosinophils Percent Auto 4.8 % (0-4); Hematocrit 43.3 % (42.0-52.0); Hemoglobin 14.5 g/dl (14.0-18.0); Imm Gran Abs Auto 0.01 X10*3/uL (0.00-0.03); Imm Gran Pct Auto 0.2 % (0.0-0.4); Lymphocytes Absolute Auto 1.2 X10*3/uL (1.2-4.9); Mean Corpuscular HGB Conc 33.5 g/dl (31.0-36.0); Mean Corpuscular Hemoglobin 29.1 pg (27.0-33.0); Mean Corpuscular Volume 86.8 fL (80.0-98.0); Mean Platelet Volume 9.6 fL (9.4-12.4); Monocytes Absolute Auto 0.6 X10*3/uL (0.1-1.2); Monocytes Percent Auto 12.2 % (2-11); Neutrophils Percent Auto 58.6 % (45-73); Platelet Count 189 X10*3/uL (160-400); Red Blood Count 4.99 X10*6/uL (4.60-5.80); Red Cell Distribution Width 14.7 % (11.0-16.0); White Blood Count 5.2 X10*3/uL (4.8-10.8)
--- NOTE | 2024-10-10 09:11 | ED_ITS ---
HPI - General Adult General Chief complaint: General Medical Stated complaint: Hypertension Time Seen by Provider: 10/10/24 09:10 Source: patient Mode of arrival: ambulatory Limitations: no limitations History of Present Illness ED Provider: Jaci Watson PA-C HPI narrative: Patient is an 79 year old assigned male at with a history of HTN on lisinopril keeping home diary with blood pressure cuff and atrial fib on AC therapy presenting to the emergency department today with concerns of his blood pressure. Patient states that yesterday he had a brief headache that has resolved but he was concerned because his blood pressure has been running higher. Patient states that he has no symptoms now and would just like his blood pressure examined. Patient denies any dizziness, lightheadedness, abdominal pain, nausea, vomiting, fever, chills, blurry vision, double vision, loss of vision, chest pain, difficulty breathing, shortness of breath, back pain, night sweats, pain with urination, increased urinary frequency, increased urinary urgency, blood in his urine or stool, syncope or a near syncopal episode, recent trauma or falls, bowel incontinence, bladder incontinence, or any other complaints at this time. MD complaint: Hypertension Relieving factors: none Exacerbating factors: none Associated symptoms: headaches (mild headache yesterday - now resolved) Treatments prior to arrival: none Related Data Home Medications ?Medication ?Instructions ?Recorded ?Confirmed ascorbate calcium (vitamin C) 500 500 mg PO DAILY 07/11/24 07/17/24 mg tablet multivitamin with minerals 1 cap PO DAILY 07/11/24 07/17/24 Previous Rx's ?Medication ?Instructions ?Recorded blood pressure monitor (Blood #1 ea 05/16/23 Pressure Kit) Eliquis 2.5 mg tablet (apixaban) 2.5 mg PO BID 30 days #60 tabs 06/04/24 dutasteride 0.5 mg capsule 0.5 mg PO DAILY 90 days #90 caps 08/15/24 tamsulosin 0.4 mg capsule 0.4 mg PO BEDTIME 90 days #90 caps 08/15/24 lisinopril 5 mg tablet 5 mg PO DAILY #90 tabs 09/21/24 Allergies Allergy/AdvReac Type Severity Reaction Status Date / Time No Known Allergies Allergy Verified 10/10/24 08:07 [No Known Allergies*] Review of Systems 2 Constitutional: Constitutional: Reports no additional constitutional complaints, Denies chills, Denies fever(s), Reports headache(s) (had last night now resolved) and Denies night sweats Eyes: Eyes: Reports no additional eye complaints, Denies blurry vision, Denies change in vision, Denies diplopia, Denies eye discharge, Denies loss of vision and Denies eye pain ENT: Denies dizziness and Reports headache(s) (had last night now resolved) Cardiovascular: Cardiovascular: Reports no additional cardiovascular complaints, Denies chest pain, Denies lightheadedness, Denies Loss of Consciousness and Denies dyspnea Respiratory: Respiratory: Reports no additional respiratory complaints and Denies dyspnea Gastrointestinal: Gastrointestinal: Reports no additional gastrointestinal complaints, Denies abdominal pain, Denies melena, Denies hematochezia, Denies change in bowel habits and Denies change in stool character Genitourinary: Genitourinary: Reports no additional male genitourinary complaints, Denies hematuria, Denies oliguria, Denies difficulty urinating, Denies dysuria, Denies urinary frequency, Denies urinary hesitancy, Denies urinary incontinence and Denies urinary urgency Musculoskeletal: Musculoskeletal: Reports no additional musculoskeletal complaints, Denies numbness and Denies tingling Neurologic: Denies dizziness, Reports headache(s) (had last night now resolved), Denies loss of vision, Denies numbness and Denies tingling Psychiatric: Psychiatric: Reports no additional psychiatric complaints Endocrine: Endocrine: Reports no additional endocrine complaints Hematologic/Lymphatic: Hematologic/Lymphatic: Reports no additional hematologic/lymphatic complaints Allergic/Immunologic: Allergic/Immunologic: Reports no additional allergic/immunologic complaints PMFSH Past Medical History Attestation statement: The following information was validated with the patient. Source: old records reviewed and nursing notes reviewed Medical History Hyperlipidemia Overweight (BMI 25.0-29.9) Vitamin D deficiency Osteoarthritis of knees, bilateral Persistent atrial fibrillation Benign essential hypertension Overactive bladder Benign prostatic hyperplasia Surgical History History of colonoscopy History of hernia surgery Family History Family History Mother No problems noted. Father No problems noted. Social History Social History Housing: Apartment Alcohol intake: never Patient Tobacco Use Status: Former Tobacco user Smoked in Last 30 Days: No e-Cigarette/Vaping Use: Never Used Second Hand Smoke Exposure: Yes Use of substances other than those prescribed or required for medical reasons: No Advance Directives: Yes Advance Directives Information Provided: Yes Advance Directives on File: No Do you have a plan to hurt others: No Plan service: No Current occupational status: retired Cognitive needs: No Hearing needs: No Vision needs: Yes Physical Exam ED Vital Signs: Vital Signs - 24 hr 10/10/24 08:05 10/10/24 10:29 10/10/24 10:31 Temperature 97 F 97 F Pulse Rate 72 68 68 Respiratory Rate 18 18 18 Blood Pressure 157/73 H 158/99 H 158/99 H Pulse Oximetry 98 98 98 Oxygen Delivery Method Room Air Room Air Room Air BMI result Body Mass Index 25.8 Const General: cooperative, healthy appearing, no acute distress, alert and awake Nutritional Appearance: well nourished Orientation/consciousness: patient oriented x3 HENMT Head: Yes normal to inspection and Yes atraumatic Ears: hearing grossly normal bilaterally and external ears normal General nose exam: Normal external nose present, no nasal discharge noted and no epistaxis Face and sinus: Yes normal facial exam, No abrasion and No laceration Mouth: Normal oral and palatal mucosa present, no drooling and no muffled voice Eyes General: appearance normal, both eyes and all related structures Periorbital: periorbital findings normal Eyelids: Yes eyelids normal Conjunctivae: conjunctivae normal Pupils: Equal, round and reactive pupils present EOM: EOMs intact bilaterally Neck Neck: Yes normal visual inspection, Yes full ROM and Yes no lymphadenopathy Resp Effort & Inspection: normal respiratory effort and able to speak in complete sentences Neuro General: patient oriented x3, moves all extremities and CN's II-XI intact bilaterally Cranial nerves: Yes Equal, round and reactive pupils present Cognition (Neuro): normal cognition Extrem General: Yes normal to inspection, Yes full ROM and Yes capillary refill normal Psych Appearance: grossly normal Mental Status: mental status grossly normal Affect: normal affect Attitude: cooperative Thought process: Normal thought process present Thought content: Normal thought content present Insight: Good insight present (Psych) Medical Decision Making Medical Decision Making MDM Narrative: Patient is an 79 year old assigned male at with a history of HTN on lisinopril keeping home diary with blood pressure cuff and atrial fib on AC therapy presenting to the emergency department today with concerns of his blood pressure. Patient's physical exam was unremarkable, mildly elevated blood pressure and no focal deficits or complaints consistent with acute end organ damage. Patient's blood work was unremarkable. Patient's EKG was unremarkable. I explained my physical exam findings as well as all test results to the patient. I answered all questions asked by the patient. I stressed the importance of the patient taking his medication as directed (either prescribed or as the over the counter packaging recommends). I stressed the importance of the patient following up with his primary care provider. I stressed the importance of the patient returning to the emergency department immediately if his symptoms were to worsen or if he were to develop any headache, dizziness, shortness of breath, difficulty breathing, chest pain, blurry vision, loss of vision, nausea, vomiting, abdominal pain, fever, chills, back pain, or any other complaints. Patient verbalized agreement and understanding with this treatment plan and discharge. Differential Diagnosis Differential Diagnoses: The differential diagnosis associated with the presentation includes Headache HTN Elevated blood pressure Admission/Observation Consideration of admission/observation: Escalation of care including admission/observation considered Patient would have been admitted to the hospital had his work up had any findings where hospital admission was appropriate and his clinical presentation warranted hospital admission. Lab Data [facility] Lab Attestation statement: I reviewed the patient's lab results. My interpretation of these results are in the [facility] Rationale portion of this note. 10/10/24 08:53 10/10/24 08:53 Labs: Lab Results 10/10/24 Range/Units 08:53 WBC 5.2 (4.8-10.8) X10*3/uL RBC 4.99 (4.60-5.80) X10*6/uL Hgb 14.5 (14.0-18.0) g/dl Hct 43.3 (42.0-52.0) % MCV 86.8 (80.0-98.0) fL MCH 29.1 (27.0-33.0) pg MCHC 33.5 (31.0-36.0) g/dl RDW 14.7 (11.0-16.0) % Plt Count 189 (160-400) X10*3/uL MPV 9.6 (9.4-12.4) fL Immature Gran % (Auto) 0.2 (0.0-0.4) % Neut % (Auto) 58.6 (45-73) % Lymph % (Auto) 23.0 (20-40) % [place] % (Auto) 12.2 H (2-11) % Eos % (Auto) 4.8 H (0-4) % Baso % (Auto) 1.2 (0-2) % Lymph # (Auto) 1.2 (1.2-4.9) X10*3/uL [place] # (Auto) 0.6 (0.1-1.2) X10*3/uL Eos # (Auto) 0.3 (0.0-0.4) X10*3/uL Baso # (Auto) 0.1 (0.0-0.2) X10*3/uL Abs Immat Gran (auto) 0.01 (0.00-0.03) X10*3/uL Absolute Neuts (auto) 3.0 (2.0-8.3) x10*3/uL Absolute Nucleated RBC 0.000 (0.0-0.012) X10*3/uL Nucleated RBC % (auto) 0.0 (0.0-0.2) /100WBC Sodium 144 (135-145) mmol/L Potassium 4.7 (3.3-5.1) mmol/L Chloride 108 (96-108) mmol/L Carbon Dioxide 29 (22-29) mmol/L Anion Gap 12 (12-20) BUN 23 H (9-16) mg/dL Creatinine 1.04 (0.5-1.4) mg/dL Estim Creat Clear Calc 54.8 Estimated GFR > 60 Fasting Glucose 100 H (60-99) mg/dL Calcium 9.9 (8.4-10.2) mg/dL Troponin I High Sens < 2.7 (<3.5-35.0) ng/L Independent Interpretation I performed an independent interpretation of an: EKG Interpretation: I independently interpreted this EKG and am in agreement with the below findings: Vent. Rate: 58 BPM Atrial Rate: * BPM P-R Int: * ms QRS Dur: 68 ms QT Int: 422 ms P-R-T Axes: * -31 -1 degrees QTcB Int: 414 ms Atrial fibrillation with slow ventricular response Left axis deviation When compared with ECG of 25-Mar-2023 19:46, Vent. rate has decreased by 31 bpm T wave inversion now evident in Inferior leads DD/ [id number] Discharge Plan Discharge Clinical Impression: HTN (hypertension) Patient Disposition: Home, Self-Care Instructions: Chronic Hypertension (DC) Additional Instructions: Continue keeping the blood pressure diary as you have been. Follow up with your primary care provider. Return to the emergency department immediately if your symptoms worsen or if you develop any numbness, tingling, dizziness, shortness of breath, difficulty breathing, chest pain, blurry vision, loss of vision, nausea, vomiting, abdominal pain, fever, chills, back pain, or any other complaints. Please see the information below about our Patient Portal. If you are not yet enrolled in the [facility] Patient Portal, you will receive an enrollment email invitation following your visit to any [facility] care setting. You may also self-enroll in the Patient Portal by visiting our website: [email or web address] The following information is required to access the Patient Portal: - Your [facility] Medical Record Number - Your personal home email address (must match what is in your electronic medical record, Registration staff can assist with this) - Name - Date of Capabilities of the Patient Portal: - Message some providers - View upcoming appointments - Access your health summary, medical history, and visit history - View current conditions and allergies - View procedure and lab results - View your medications, including guidelines, side effects, and precautions - Complete pre-appointment questionnaires requested by your provider - Ready summary reports of your office visits and procedures To access the Patient Portal Mobile Virgie, follow these directions: - Search [facility] in the Virgie Store or [employer] Store - Download the Virgie - Search for [facility] - Enter your login/password Prescriptions: No Action (DME) blood pressure monitor [Blood Pressure Kit] Kit See Rx Instructions .ROUTE .MEDSUPPLY Qty: 1 0RF Rx Instructions: As directed Eliquis 2.5 mg tablet 2.5 mg PO BID 30 Days Qty: 60 3RF dutasteride 0.5 mg capsule 0.5 mg PO DAILY 90 Days Qty: 90 0RF tamsulosin 0.4 mg capsule 0.4 mg PO BEDTIME 90 Days Qty: 90 1RF lisinopril 5 mg tablet 5 mg PO DAILY Qty: 90 1RF ascorbate calcium (vitamin C) 500 mg tablet 500 mg PO DAILY multivitamin with minerals Capsule 1 cap PO DAILY Referrals: Rudy Mathis MD [Primary Care Provider] - Interventions: ED Discharge Assessment Last Done: 10/10/24 10:31 Discharge Date/Time: 10/10/24 10:32 Print Language: Malay
[2024-10-10 09:22] LABS: Anion Gap 12 (12-20); Blood Urea Nitrogen 23 mg/dL (9-16); Calcium 9.9 mg/dL (8.4-10.2); Carbon Dioxide 29 mmol/L (22-29); Chloride 108 mmol/L (96-108); Creatinine Clr Calc Pharmacy 54.8; Estimated Glomerular Filt Rate > 60; Glucose Fasting 100 mg/dL (60-99); Potassium 4.7 mmol/L (3.3-5.1); Sodium 144 mmol/L (135-145)
[2024-10-10 09:58] LABS: Troponin-I High Sensitivity < 2.7 ng/L (<3.5-35.0)
[2024-10-10 10:29] VITALS: BP 158/99; PULSE 68; RESP 18; TEMP 36.1; O2SAT 98
[2024-10-10 10:31] VITALS: BP 158/99; PULSE 68; RESP 18; TEMP 36.1; O2SAT 98
== END 2024-10-10 10:32 | disposition home or self-care (01) ==
PROVIDERS: Emergency Provider Emergency Medicine; PCP Internal Medicine
DX: I10 Essential (primary) hypertension (principal); R51.9 Headache, unspecified; I48.91 Unspecified atrial fibrillation; E78.5 Hyperlipidemia, unspecified; Z79.01 Long term (current) use of anticoagulants
CPT/HCPCS: 36415; 80048; 84484; 85025; 93005; 99283; 99284

== ENCOUNTER → 2024-10-10 08:38 | Outpatient (BNV) | payer MEDICARE, SELFPAY | PROVIDERS: Emergency Provider Emergency Medicine; PCP Internal Medicine; Visit Provider Internal Medicine | DX: I48.91 Unspecified atrial fibrillation (principal) | CPT/HCPCS: 93010 ==

== ENCOUNTER 2024-12-06 13:59 | Outpatient (AMB) | payer MEDICARE, SELFPAY ==
--- NOTE | 2024-12-06 14:01 | A.OFFPC_ITS ---
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: No Accompanied by: Self / Same As Patient Allergies No Known Allergies (No Known Allergies*) Allergy (Verified 12/06/24 14:13) Medication List - Last Reconciled 12/06/24 by ELIOT Prater ascorbate calcium (vitamin C) 500 mg PO DAILY blood pressure monitor (Blood Pressure Kit) As directed dutasteride 0.5 mg PO DAILY 90 days Eliquis (apixaban) 2.5 mg PO BID 30 days NS lisinopril 5 mg PO DAILY multivitamin with minerals 1 cap PO DAILY tamsulosin 0.4 mg PO BEDTIME 90 days Tobacco use date assessed: 12/06/24 Fall risk assessment: No Falls in past year Dental Screening Dental Screen Date: 12/06/24 Did you have a dental visit in the last 12 months?: No Did you have a dental problem in the last 6 months where you did not have access to dental care?: No Was dental information given to patient?: No HPI annual exam HPI0 Details Dentist: n/a Reports that he had all his teeth pull Eye: Reports that he has not gone for 14 years Snellen: Right: Left: Corrected vision: glasses STI screening: Colonoscopy: The patient was supposed to have this in 2017 per chart review but this off due prostate cancer. Reports that he has no interest in doing this at his age. Pap Smer:n/a PHQ-9: Flu: up to date COVID: x6 Tdap: reports has not have done in a long time, but he will wait for now Diet: regular, reports that has been watching his salt intake Exercise: Reports that he does a lot of walking The patient is an 79-year-old male presenting with a wellness check and management of chronic conditions. The patient has a history of prostate cancer, with a prostate biopsy indicating a 46% chance of low-grade prostate cancer and a 49% chance of high-grade prostate cancer. The patient is currently under surveillance with the use of Flomax to manage symptoms related to prostate enlargement. The patient reports experiencing dehydration, which was evident when he felt dizzy upon standing up at a recent meeting. He admits to drinking only one bottle of water per day, which is insufficient for his hydration needs. The patient also has an issue with earwax buildup, which affects his hearing. He has been advised to use ear drops to manage this condition. [facility] Medical History Hyperlipidemia Overweight (BMI 25.0-29.9) Vitamin D deficiency Osteoarthritis of knees, bilateral Persistent atrial fibrillation Benign essential hypertension Overactive bladder Benign prostatic hyperplasia Surgical History History of colonoscopy History of hernia surgery Family History Mother No problems noted. Father No problems noted. Social History Housing: Apartment Alcohol intake: never Patient Tobacco Use Status: Former Tobacco user e-Cigarette/Vaping Use: Never Used Second Hand Smoke Exposure: Yes service: No Current occupational status: retired Cognitive needs: No Hearing needs: No Vision needs: Yes Questionnaire PHQ-9 Over the last 2 weeks, how often have you been bothered by any of the following problems? 1. Little interest or pleasure in doing things: not at all 2. Feeling down, depressed, or hopeless: not at all 3. Trouble falling or staying asleep, or sleeping too much: not at all 4. Feeling tired or having little energy: several days 5. Poor appetite or overeating: not at all 6. Feeling bad about yourself - or that you are a failure or have let yourself or your family down: not at all 7. Trouble concentrating on things, such as reading the newspaper or watching television: not at all 8. Moving or speaking so slowly that other people could have noticed. Or the opposite - being so fidgety or restless that you have been moving around a lot more than usual: not at all 9. Thoughts that you would be better off or of hurting yourself in some way: not at all Total score: 1 Depression Screening Interpretation: Negative Depression Screening Done: Yes Source: Developed by Drs. Santo Hayes, Carol Valdovinos, Navi Heard and colleagues, with an educational caroline from [employer]. Thrive Questionnaire Date Thrive assessed: 12/06/24 I am a: Patient What is your living situation today?: I have a steady place to live Within the past 12 months, did the food you bought not last and you didn't have the money to get more?: Never true Within the past 12 months, did you worry whether your food would run out before you got money to buy more?: Never true Do you have trouble paying for medicines?: No Do you have trouble getting transportation to medical appointments?: No Do you have trouble paying your heating and electricity bill?: No Do you have trouble taking care of your child, family member or friend?: No Do you have trouble with day-to-day activities such as bathing, preparing meals, shopping, managing finances, etc.?: No Are you currently unemployed and looking for a job?: No Are you interested in more education?: No Please select the resources that you would like help with: Care for elder or disabled Currently or been in a relationship where the following occur: No concerns reported THRIVE Score: 0 AUDIT C Alcohol Use Questionnaire (AUDIT-C) 1. How often do you have a drink containing alcohol?: Never 3. How often do you have six or more drinks on one occasion?: Never Total Score: 0 VERNON-7 AMB Questionnaire VERNON-7 Date VERNON - 7 assessed: 12/06/24 Feeling nervous, anxious, or on edge: 0 = Not at all Not being able to stop or control worryin = Not at all Worrying too much about different things: 0 = Not at all Trouble relaxin = Not at all Being so restless that it is hard to sit still: 0 = Not at all Becoming easily annoyed or irritable: 0 = Not at all Feeling afraid as if something awful might happen: 0 = Not at all Total VERNON-7 score (0-4 normal; 5-9 mild; 10-14 moderate; 15-21 severe): 0 Source: Developed by Drs. Santo Hayes, Navi Ly and colleagues, with an educational caroline from [employer]. Review of Systems Const Denies headache(s) Eyes Denies loss of vision ENT Denies vertigo, Reports dizziness (upon standing), Denies headache(s) and Denies sore throat Card Denies chest pain, Denies leg edema and Denies lightheadedness Resp Denies cough, Denies hemoptysis and Denies wheezing GI Denies abdominal pain, Denies melena, Denies constipation, Denies diarrhea and Denies vomiting Denies dysuria, Denies urinary frequency and Denies urinary urgency Musc Denies arthralgias, Denies joint swelling, Denies numbness and Denies tingling Neuro Denies Abnormal speech present, Denies behavioral changes, Denies vertigo, Reports dizziness (upon standing), Denies headache(s), Denies loss of vision, Denies memory loss, Denies numbness and Denies tingling Psych Denies anxiety, Denies behavioral changes, Denies depression, Denies memory loss and Denies panic attacks Hayden/Lymph Denies easy bleeding and Denies easy bruising Aller/Immun Denies wheezing Physical exam (Primary Care) Vital Signs: Last Vital Signs Temp 97.1 F 12/06/24 14:02 Pulse 70 12/06/24 14:02 Resp 18 12/06/24 14:02 BP 148/80 H 12/06/24 14:02 Pulse Ox 98 12/06/24 14:02 Oxygen Delivery Method Room Air 12/06/24 14:02 BMI result Body Mass Index 25.6 Tobacco/Smoking Status: Tobacco use Status Tobacco use date assessed 12/06/24 12/06/24 14:03 Patient Tobacco Use Status Former Tobacco user 12/06/24 14:03 e-Cigarette/Vaping Use Never Used 12/06/24 14:03 PHQ-9: PHQ-9 Score PHQ-9: Total score 1 12/06/24 14:14 Depression Screening Interpretation: Negative Thrive Assessment: Date of Thrive Assessment Date Thrive assessed 12/06/24 12/06/24 14:03 Currently or been in a relationship where the following occur: No concerns reported Const General: healthy appearing, no acute distress, alert and awake Nutritional Appearance: well nourished Orientation/consciousness: oriented to person, oriented to place and oriented to time HENMT Ears: TM's normal bilaterally General nose exam: Normal nasal mucous membranes and turbinates present Eyes Conjunctivae: conjunctivae normal Sclerae: sclerae normal Pupils: Equal, round and reactive pupils present Neck Neck: Yes no lymphadenopathy and Yes no JVD Thyroid: Thyroid normal Carotids: no bruits Resp Effort & Inspection: normal respiratory effort and not tachypneic Auscultation: no crackles, no rales, no rhonchi and no wheezes Cardio Rate: regular rate Rhythm: abnormal rhythm irregularly irregular Heart sounds: S1 normal heart sound present, S2 normal heart sound present and no murmurs GI Palpation (GI): Soft to palpation, nontender, no hepatomegaly and no splenomegaly Auscultation: normal bowel sounds Skin General skin exam: no rashes or lesions noted and dry skin Neuro General: oriented to person, oriented to place and oriented to time Cranial nerves: Yes Equal, round and reactive pupils present Speech: No Abnormal speech present Gait exam (Neuro): Normal gait present Motor exam (neuro): no tremor noted Extrem Right upper extremity: full ROM Left upper extremity: full ROM Right lower extremity: full ROM; no edema Left lower extremity: full ROM; no edema Psych Mental Status: mental status grossly normal Speech and movement: Normal speech and movement present Affect: normal affect Attitude: cooperative Thought process: Normal thought process present Results Reviewed Results Reviewed: Laboratory Tests 07/16/24 10/10/24 07:15 08:53 WBC 5.2 RBC 4.99 Hgb 14.5 Hct 43.3 MCV 86.8 MCH 29.1 MCHC 33.5 RDW 14.7 Plt Count 189 Sodium 144 Potassium 4.7 Chloride 108 Carbon Dioxide 29 Anion Gap 12 BUN 23 H Creatinine 1.04 Estim Creat Clear Calc 54.8 Estimated GFR > 60 Fasting Glucose 100 H Calcium 9.9 Triglycerides 129 Cholesterol 183 LDL Cholesterol, Calc 123 H HDL Cholesterol 35 L Total PSA 3.38 TSH 2.04 Coding Level of Care Code Est Pt Prev Care >65y(58783) Diagnoses Annual physical exam Z00.00 Benign essential hypertension I10 Elevated PSA R97.20 Vitamin D deficiency E55.9 Constipation, unspecified constipation type K59.00 Constipation type: unspecified constipation type Asymptomatic microscopic hematuria R31.21 Hematuria type: asymptomatic microscopic Primary osteoarthritis of both knees M17.0 Osteoarthritis type: primary Adenocarcinoma of prostate C61 Nephrolithiasis N20.0 Overweight (BMI 25.0-29.9) E66.3 Hyperlipidemia, unspecified hyperlipidemia type E78.5 Hyperlipidemia type: unspecified Persistent atrial fibrillation I48.19 Time Spent (min) 37 Assessment & Plan Assessment & Plan (1) Annual physical exam: Code(s): Z00.00 - Encounter for general adult medical examination without abnormal findings Category: Medical Plan: Preventative guidelines and recent labs reviewed with the patient. He has aged out of colonoscopy. Declined Tdap vaccine. He is not interested in getting his eyes checked and he does not need to go to the dentist due to removal of teeth. (2) Benign essential hypertension: Code(s): I10 - Essential (primary) hypertension Category: Medical Plan: Encouraged DASH diet and activity as tolerated. Refrain from alcohol use and if you smoke, smoking cessation is strongly advised Continue lisinopril 5 mg daily Continue monitoring blood pressure at home (3) Elevated PSA: Code(s): R97.20 - Elevated prostate specific antigen [PSA] Category: Medical Plan: The patient PSA 3.38. Reports that his urinary symptoms has been much better. Continue duasteride 0.5 mg daily and flomax 0.4 mg at bedtime (4) Vitamin D deficiency: Code(s): E55.9 - Vitamin D deficiency, unspecified Category: Medical Plan: Corporate vitamin-D rich foods (vitamin D fortified milk, orange juice, and cereals, cod liver oil; swordfish, salmon, schwab, mackerel, tuna, trout, egg yolk and mushrooms). Safe and appropriate exposure to sunlight can also help the body produce vitamin-D. (5) Constipation: Code(s): K59.00 - Constipation, unspecified Category: Medical Qualifiers: Constipation type: unspecified constipation type Qualified Code(s): K59.00 - Constipation, unspecified Plan: Increase fiber in diet (fruits/vegetables 4-5 servings daily) Increase fluid intake and decrease caffeine/energy drinks (may cause mild dehydration) Encouraged regular exercise (e.g., biking, walking, running) (6) Hematuria: Code(s): R31.9 - Hematuria, unspecified Category: Medical Qualifiers: Hematuria type: asymptomatic microscopic Qualified Code(s): R31.21 - Asymptomatic microscopic hematuria Plan: Trace of blood in urine. Patient has a known kidney stone that has been monitored. He also has adenocarcinoma of the prostate and he is on Eliquis 2.5 mg b.i.d.. All increases the patient chance for bleeding. We will continue to monitor. Discussed with the patient to report any signs of bleeding to us. (7) Osteoarthritis of knees, bilateral: Code(s): M17.0 - Bilateral primary osteoarthritis of knee Category: Medical Qualifiers: Osteoarthritis type: primary Qualified Code(s): M17.0 - Bilateral primary osteoarthritis of knee Plan: Reports that pain is tolerable and resolves with Tylenol OTC (8) Adenocarcinoma of prostate: Code(s): C61 - Malignant neoplasm of prostate Category: Medical Plan: The patient is under active surveillance, PSA every 4 months, continue on Avodart 0.5 mg daily Follow up with Urology as scheduled (9) Nephrolithiasis: Code(s): N20.0 - Calculus of kidney Category: Medical Plan: The patient was noted to have 0.5 cm echogenic calyceal stone in the region of the mid to lower pole of the right kidney. The left kidney with no calculi, lesions, and/or hydronephrosis. Follow up with Urology as scheduled (10) Overweight (BMI 25.0-29.9): Code(s): E66.3 - Overweight Category: Medical Plan: Discussed lifestyle modifications including dietary changes and physical activity (11) Hyperlipidemia: Code(s): E78.5 - Hyperlipidemia, unspecified Category: Medical Qualifiers: Hyperlipidemia type: unspecified Qualified Code(s): E78.5 - Hyperlipidemia, unspecified Plan: Triglycerides 183, LDL 123, HDL 35 Discussed lifestyle modifications including dietary changes and physical activity We will continue to monitor lipid panel (12) Persistent atrial fibrillation: Code(s): I48.19 - Other persistent atrial fibrillation Category: Medical Plan: He is symptomatic. Transient dizziness upon standing but seemed to be more related to fluid status. Continue apixaban 2.5 mg b.i.d. Orders: Orders Lipid Panel 4 Months I10 - Essential (primary) hypertension, I48.19 - Other persistent atrial fibrillation, E78.5 - Hyperlipidemia, unspecified, E66.3 - Overweight, E55.9 - Vitamin D deficiency, unspecified TSH reflex Free T4 4 Months I10 - Essential (primary) hypertension, I48.19 - Other persistent atrial fibrillation, E78.5 - Hyperlipidemia, unspecified, E66.3 - Overweight, E55.9 - Vitamin D deficiency, unspecified Vitamin D 25-OH Total 4 Months I10 - Essential (primary) hypertension, I48.19 - Other persistent atrial fibrillation, E78.5 - Hyperlipidemia, unspecified, E66.3 - Overweight, E55.9 - Vitamin D deficiency, unspecified Complete Blood Count Auto Diff 4 Months I10 - Essential (primary) hypertension, I48.19 - Other persistent atrial fibrillation, E78.5 - Hyperlipidemia, unspecified, E66.3 - Overweight, E55.9 - Vitamin D deficiency, unspecified UA CC w/rflx Micro + Cult 4 Months I10 - Essential (primary) hypertension, I48.19 - Other persistent atrial fibrillation, E78.5 - Hyperlipidemia, uns pecified, E66.3 - Overweight, E55.9 - Vitamin D deficiency, unspecified Comprehensive [place]. Panel Fast 4 Months I10 - Essential (primary) hypertension, I48.19 - Other persistent atrial fibrillation, E78.5 - Hyperlipidemia, unspecified, E66.3 - Overweight, E55.9 - Vitamin D deficiency, unspecified
[2024-12-06 14:02] VITALS: BP 148/80; PULSE 70; RESP 18; TEMP 36.2; O2SAT 98; BMI 25.6
== END 2024-12-06 14:52 | disposition home or self-care (01) ==
LOC: HO.HMCH 14:00
PROVIDERS: PCP Internal Medicine
DX: Z00.00 Encounter for general adult medical examination without abnormal findings (principal); I10 Essential (primary) hypertension; C61 Malignant neoplasm of prostate; I48.19 Other persistent atrial fibrillation; R97.20 Elevated prostate specific antigen [PSA]; E55.9 Vitamin D deficiency, unspecified; K59.00 Constipation, unspecified; R31.21 Asymptomatic microscopic hematuria; M17.0 Bilateral primary osteoarthritis of knee; N20.0 Calculus of kidney; E66.3 Overweight; E78.5 Hyperlipidemia, unspecified

== ENCOUNTER → 2024-12-06 13:59 | Outpatient (BNVA) | payer MEDICARE, SELFPAY | PROVIDERS: PCP Internal Medicine | DX: Z00.00 Encounter for general adult medical examination without abnormal findings (principal); I10 Essential (primary) hypertension; E55.9 Vitamin D deficiency, unspecified; K59.00 Constipation, unspecified; R97.20 Elevated prostate specific antigen [PSA]; R31.21 Asymptomatic microscopic hematuria; M17.0 Bilateral primary osteoarthritis of knee; C61 Malignant neoplasm of prostate; N20.0 Calculus of kidney; E78.5 Hyperlipidemia, unspecified; I48.19 Other persistent atrial fibrillation; E66.3 Overweight; Z68.25 Body mass index [BMI] 25.0-25.9, adult; Z71.3 Dietary counseling and surveillance | CPT/HCPCS: 99397 ==

== ENCOUNTER 2025-02-12 09:29 | Outpatient (AMB) | payer MEDICARE, SELFPAY ==
[2025-02-12 09:31] VITALS: BP 142/72; PULSE 87; RESP 18; TEMP 36.3; O2SAT 98; BMI 26.0
--- NOTE | 2025-02-12 09:31 | A.OFFPC_ITS ---
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 He reports he has hearing loss mainly in the left ear. He used an eardrop and home flush with no success. [facility] Medical History Hyperlipidemia Overweight (BMI 25.0-29.9) Vitamin D deficiency Osteoarthritis of knees, bilateral Persistent atrial fibrillation Benign essential hypertension Overactive bladder Benign prostatic hyperplasia Surgical History History of colonoscopy History of hernia surgery Family History Mother No problems noted. Father No problems noted. Social History Housing: Apartment Alcohol intake: never Patient Tobacco Use Status: Former Tobacco user e-Cigarette/Vaping Use: Never Used Second Hand Smoke Exposure: Yes service: No Current occupational status: retired Cognitive needs: No Hearing needs: No Vision needs: Yes Questionnaire Thrive Questionnaire Date Thrive assessed: 12/06/24 I am a: Patient What is your living situation today?: I have a steady place to live Within the past 12 months, did the food you bought not last and you didn't have the money to get more?: Never true Within the past 12 months, did you worry whether your food would run out before you got money to buy more?: Never true Do you have trouble paying for medicines?: No Do you have trouble getting transportation to medical appointments?: No Do you have trouble paying your heating and electricity bill?: No Do you have trouble taking care of your child, family member or friend?: No Do you have trouble with day-to-day activities such as bathing, preparing meals, shopping, managing finances, etc.?: No Are you currently unemployed and looking for a job?: No Are you interested in more education?: No Please select the resources that you would like help with: Care for elder or disabled Currently or been in a relationship where the following occur: No concerns reported THRIVE Score: 0 VERNON-7 AMB Questionnaire VERNON-7 Date VERNON - 7 assessed: 12/06/24 Source: Developed by Drs. Santo Hayes, Carol Valdovinos, Navi Heard and colleagues, with an educational caroline from [employer]. Physical exam (Primary Care) Vital Signs: Last Vital Signs Temp 97.3 F 02/12/25 09:31 Pulse 87 02/12/25 09:31 Resp 18 02/12/25 09:31 BP 142/72 H 02/12/25 09:31 Pulse Ox 98 02/12/25 09:31 Oxygen Delivery Method Room Air 02/12/25 09:31 BMI result Body Mass Index 26.0 Tobacco/Smoking Status: Tobacco use Status Tobacco use date assessed 02/12/25 02/12/25 09:40 Patient Tobacco Use Status Former Tobacco user 02/12/25 09:40 e-Cigarette/Vaping Use Never Used 02/12/25 09:40 Thrive Assessment: Date of Thrive Assessment Date Thrive assessed 12/06/24 02/12/25 09:40 Currently or been in a relationship where the following occur: No concerns reported Const Other: Pertinent findings are in BOLD GENERAL APPEARANCE NAD, activity normal for age, well developed/ well nourished, no cyanosis, pallor, or diaphoresis. EYES lids/conjunctiva normal. EARS/NOSE/THROAT Mucous membranes moist, nares normal, lips/teeth normal uvula midline without oral pharyngeal erythema, exudate or swelling TMs normal bilaterally. No lymphangitis/lymphedema. HEAD/NECK normocephalic atraumatic, no facial trauma, neck is supple. Left ear blocked with wax. After procedure; no wax left. RESPIRATORY respiratory effort normal, speaks in full sentences, no tripod position, no accessory muscle use. Lungs clear to auscultation without rhonchi, wheezes, rales CARDIAC Regular rate and rhythm, no edema. ABDOMINAL Soft, ND/NT. No evidence of fluid wave. No pulsatile masses on exam, rebound tenderness, Gomes sign or pain over Mcburney's point. MUSCLES/EXTREMITIES No abnormal range of motion, no swelling. SKIN Warm, pink and dry. No rashes, dermatoses, petechiae or lesions. NEUROLOGICAL Speech is clear and appropriate. Normal level of consciousness. Gait and coordination are normal. 5/5 strength in all extremities. PSYCH Normal mood and affect. Judgement/competence is appropriate Coding Level of Care Code Est Pt Level 4 (34676) Diagnoses Ear fullness H93.8X9 Time Spent (min) 30 Comment Procedure time. Assessment & Plan Assessment & Plan (1) Ear fullness: Comment: left ear Code(s): H93.8X9 - Other specified disorders of ear, unspecified ear Category: Medical Plan: Successful ear flush. Post flush exam showing no wax. Flu vaccine administered today. Plan Ear flush, tolearted well.
== END 2025-02-12 10:56 | disposition home or self-care (01) ==
PROVIDERS: PCP Internal Medicine; Visit Provider Internal Medicine
DX: H93.8X9 Other specified disorders of ear, unspecified ear (principal); Z23 Encounter for immunization

== ENCOUNTER → 2025-02-12 09:29 | Outpatient (BNVA) | payer MEDICARE, SELFPAY | PROVIDERS: PCP Internal Medicine; Visit Provider Internal Medicine | DX: H93.8X2 Other specified disorders of left ear (principal); Z23 Encounter for immunization | CPT/HCPCS: 90471; 90656; 99212 ==

== ENCOUNTER 2025-03-08 09:27 | Emergency (ER) | payer MEDICARE, SELFPAY ==
[2025-03-08 09:32] VITALS: BP 128/79; PULSE 86; RESP 18; TEMP 36.7; O2SAT 95; BMI 25.1
--- NOTE | 2025-03-08 09:42 | ED.GENADULT ---
HPI - General Adult General Chief complaint: Upper Respiratory Symptoms Stated complaint: COVID + Time Seen by Provider: 03/08/25 09:42 History of Present Illness ED Provider: Richa IBARRA narrative: The patient is an 80-year-old male with a history of atrial fibrillation who was on apixaban. He has felt unwell for about 2 or 3 days with a runny nose, sneezing, coughing, and sore throat. This morning he tested himself at home for COVID and tested positive. He then decided he should come to the emergency room for evaluation. [place] near the hospital and walked here. He has had no chest pain or shortness of breath. He does not think he has had a fever. No nausea or vomiting. Related Data Home Medications ?Medication ?Instructions ?Recorded ?Confirmed multivitamin with minerals 1 cap PO DAILY 07/11/24 12/06/24 Previous Rx's ?Medication ?Instructions ?Recorded blood pressure monitor (Blood #1 ea 05/16/23 Pressure Kit) tamsulosin 0.4 mg capsule 0.4 mg PO BEDTIME 90 days #90 caps 08/15/24 Eliquis 2.5 mg tablet (apixaban) 2.5 mg PO BID 30 days #60 tabs 10/20/24 dutasteride 0.5 mg capsule 0.5 mg PO DAILY 90 days #90 caps 12/28/24 lisinopril 5 mg tablet 5 mg PO DAILY #90 tabs 01/06/25 Allergies Allergy/AdvReac Type Severity Reaction Status Date / Time No Known Allergies (No Known Allergy Verified 03/08/25 09:34 Allergies*) Review of Systems Review of Systems: Yes all other systems are reviewed and are negative FORMERLY [facility], [facility] Past Medical History Medical History Hyperlipidemia Overweight (BMI 25.0-29.9) Vitamin D deficiency Osteoarthritis of knees, bilateral Persistent atrial fibrillation Benign essential hypertension Overactive bladder Benign prostatic hyperplasia Surgical History History of colonoscopy History of hernia surgery Family History Family History Mother No problems noted. Father No problems noted. Social History Social History (Reviewed 02/12/25 @ 09:32 by AMADA Brooks Housing: Apartment Alcohol intake: never Patient Tobacco Use Status: Former Tobacco user e-Cigarette/Vaping Use: Never Used Second Hand Smoke Exposure: Yes Advance Directives: Yes Advance Directives Information Provided: Yes Advance Directives on File: No Do you have a plan to hurt others: No Plan service: No Current occupational status: retired Cognitive needs: No Hearing needs: No Vision needs: Yes Physical Exam ED Vital Signs: Vital Signs - 24 hr 03/08/25 09:32 03/08/25 10:24 Temperature 98.1 F 98.1 F Pulse Rate 86 86 Respiratory Rate 18 18 Blood Pressure 128/79 128/79 Pulse Oximetry 95 95 Oxygen Delivery Method Room Air Room Air BMI result Body Mass Index 25.1 Const Other: The patient is a well-groomed 80-year-old man who was awake and alert and looks quite well. He does not appear ill or in distress. Orientation/consciousness: patient oriented x3 HENMT Other: The face is symmetrical. ?Mucous membranes moist. Pharynx is unremarkable. Eyes General: appearance normal, both eyes and all related structures Neck Neck: Yes normal visual inspection, Yes full ROM and Yes no lymphadenopathy Resp Effort & Inspection: normal respiratory effort Auscultation: clear to auscultation bilaterally Cardio Other: The patient has a very irregular heart rhythm. His rate is normal GI Other: Abdomen is soft and nontender Skin Other: The skin is dry and unremarkable Neuro General: patient oriented x3, gait normal, moves all extremities, no focal motor deficits and CN's II-XI intact bilaterally Extrem Other: No peripheral edema Medical Decision Making Medical Decision Making MDM Narrative: The patient is an 80-year-old male. He has a history of atrial fibrillation and is on apixaban. He presents with a 2-3 day history of upper respiratory symptoms. He tested himself for COVID today and was positive. He came to the emergency room because of this. Here in the emergency room he looks quite well. His vital signs are normal. He is entirely nontoxic. He does not seem short of breath. Since he is on apixaban he would not be a candidate for Paxlovid. He does not require further testing based on his extremely reassuring clinical appearance. He was advised that he should treat himself conservatively has a if he has a bad cold. He should stay in touch with his regular doctor for additional instructions. He should return to the emergency room if he feels significantly short of breath or significantly ill otherwise. Lab Data Labs: Lab Results 03/08/25 Range/Units 09:47 Influenza Type A (PCR) NEGATIVE (Negative) Influenza Type B (PCR) NEGATIVE (Negative) RSV RNA Qual (PCR) NEGATIVE (Negative) SARS-CoV-2 RNA (RT-PCR) POSITIVE A (Negative) Discharge Plan Discharge Clinical Impression: COVID Patient Disposition: Home, Self-Care Instructions: COVID-19 (Coronavirus Disease 2019) (ED) Additional Instructions: I assume that you will be testing positive for COVID. If there is any surprising result on your nasal swab I will call you at [phone]. Assuming that you have COVID please plan on treating yourself as you would if you had a bad cold. Rest and take it easy. Take a lot of hot beverages like hot teas or chicken soup. You may use acetaminophen (Tylenol) as needed for discomfort. As much as you can try to avoid contact with other people so you do not spread the infection. If you are in contact with the people please wear a mask. Please contact your regular doctor's office for additional advice as needed. Return to the emergency room if you feel significantly worse, especially if you feel short of breath. Prescriptions: No Action (DME) blood pressure monitor [Blood Pressure Kit] Kit See Rx Instructions .ROUTE .MEDSUPPLY Qty: 1 0RF Rx Instructions: As directed tamsulosin 0.4 mg capsule 0.4 mg PO BEDTIME 90 Days Qty: 90 1RF Eliquis 2.5 mg tablet 2.5 mg PO BID 30 Days Qty: 60 3RF dutasteride 0.5 mg capsule 0.5 mg PO DAILY 90 Days Qty: 90 0RF lisinopril 5 mg tablet 5 mg PO DAILY Qty: 90 1RF multivitamin with minerals Capsule 1 cap PO DAILY Referrals: Rudy Mathis MD [Primary Care Provider, Internal Medicine] Interventions: ED Discharge Assessment Last Done: 03/08/25 10:24 Discharge Date/Time: 03/08/25 10:26 Print Language: Italian
[2025-03-08 10:24] VITALS: BP 128/79; PULSE 86; RESP 18; TEMP 36.7; O2SAT 95
[2025-03-08 10:36] LABS: Resp Syncy Virus RNA Qual PCR NEGATIVE (Negative); SARS COV2 PCR INHOUSE POSITIVE (Negative)
== END 2025-03-08 10:26 | disposition home or self-care (01) ==
PROVIDERS: Emergency Provider Emergency Medicine; PCP Internal Medicine
DX: U07.1 COVID-19 (principal); R05.9 Cough, unspecified; R09.89 Other specified symptoms and signs involving the circulatory and respiratory systems
CPT/HCPCS: 87637; 99282; 99283

== ENCOUNTER 2025-04-19 14:12 | Outpatient (AMB) | payer MEDICARE, SELFPAY ==
--- NOTE | 2025-04-19 14:36 | MHC.PC.OV ---
Vital Signs 04/19/25 14:39 04/19/25 14:43 Height 5 ft 9 in Weight 172 lb 4 oz BMI 25.4 BP 150/100 H 140/86 H Blood Pressure Location Lt brachial Rt brachial Position Sitting Sitting Pulse 71 Pulse Source Pulse Oximeter Temp 97.1 F Temp Source Temporal Artery Scan Pulse Oximetry (%) 98 Oxygen Delivery Method Room Air Intake Visit Reasons: htn/hld/constipation/afib Intake Note: Patient is here to follow up on HTN, HLD, Constipation, Afib. Warehouse Order Selector Required: No Workforce Management Coordinator: Not Required per policy Accompanied by: Self / Same As Patient Allergies No Known Allergies (No Known Allergies*) Allergy (Verified 04/22/25 11:40) Medication List - Last Reconciled 04/19/25 by ELIOT Prater blood pressure monitor (Blood Pressure Kit) As directed dutasteride 0.5 mg PO DAILY 90 days Eliquis (apixaban) 2.5 mg PO BID 30 days NS lisinopril 5 mg PO DAILY multivitamin with minerals 1 cap PO DAILY tamsulosin 0.4 mg PO BEDTIME 90 days Tobacco use date assessed: 04/19/25 Fall risk assessment: No Falls in past year Last assessed Fall Risk: 04/19/25 Dental Screening Dental Screen Date: 02/12/25 HPI HPI Comments History of Present Illness Details The patient is an 80 year old male presenting for evaluation of chronic conditions and with concerns about his memory. He reports that his memory is not what it could be and has difficulty with tasks he used to be able to do. He describes instances of forgetting why he walked into a room and being unable to recall his own address, which he found scary. The patient receives assistance from a Hatchery Worker (SPORTING GOODS SALESPERSON) twice a week. The SPORTING GOODS SALESPERSON visits on Tuesdays for one and a half hours and on Fridays for two hours, helping with personal care such as filing his nails and assisting in the bathroom. The patient is seeking a letter to potentially increase the SPORTING GOODS SALESPERSON's hours due to his memory issues. The patient had preordered labs has not been completed as yet. Blood pressure elevated in office we will have the patient follow up for close monitoring. Urged the patient to complete blood work before follow up appointment to further evaluate. Health Maintenance - The patient needs to have blood work done. - A pneumonia vaccine was mentioned for the patient to get. Social History - Functional Status: The patient receives assistance from a SPORTING GOODS SALESPERSON twice a week for a total of 3.5 hours. - Activities of Daily Living (ADLs): The SPORTING GOODS SALESPERSON assists with personal care, including nail care and help in the bathroom. - Nutrition: The patient previously received meals but disliked them, finding them unpalatable and not nutritious. Results - Labs: Blood work has not been completed yet. [facility] Medical History Hyperlipidemia Overweight (BMI 25.0-29.9) Vitamin D deficiency Osteoarthritis of knees, bilateral Persistent atrial fibrillation Benign essential hypertension Overactive bladder Benign prostatic hyperplasia Surgical History History of colonoscopy History of hernia surgery Family History Mother No problems noted. Father No problems noted. Social History Housing: Apartment Alcohol intake: never Patient Tobacco Use Status: Former Tobacco user e-Cigarette/Vaping Use: Never Used Second Hand Smoke Exposure: Yes Advance Directives: Yes Advance Directives Information Provided: Yes Advance Directives on File: No service: No Current occupational status: retired Cognitive needs: No Hearing needs: No Vision needs: Yes Questionnaire PHQ-9 Over the last 2 weeks, how often have you been bothered by any of the following problems? Depression Screening Interpretation: Negative Depression Screening Done: Yes Source: Developed by Drs. Santo Hayes, Carol Valdovinos, Navi Heard and colleagues, with an educational caroline from [employer]. Thrive Questionnaire Date Thrive assessed: 12/06/24 I am a: Patient What is your living situation today?: I have a steady place to live Within the past 12 months, did the food you bought not last and you didn't have the money to get more?: Never true Within the past 12 months, did you worry whether your food would run out before you got money to buy more?: Never true Do you have trouble paying for medicines?: No Do you have trouble getting transportation to medical appointments?: No Do you have trouble paying your heating and electricity bill?: No Do you have trouble taking care of your child, family member or friend?: No Do you have trouble with day-to-day activities such as bathing, preparing meals, shopping, managing finances, etc.?: No Are you currently unemployed and looking for a job?: No Are you interested in more education?: No Please select the resources that you would like help with: Care for elder or disabled Currently or been in a relationship where the following occur: No concerns reported THRIVE Score: 0 VERNON-7 AMB Questionnaire VERNON-7 Date VERNON - 7 assessed: 12/06/24 Source: Developed by Drs. Santo Hayes, Carol Valdovinos, Navi Heard and colleagues, with an educational caroline from [employer]. Review of Systems Narrative Review of Systems - General: Reports not feeling like himself. - Neurological: Reports memory impairment, including forgetting his address and the reason for entering a room. Const Denies headache(s) Eyes Denies loss of vision ENT Denies vertigo, Reports dizziness (upon standing), Denies headache(s) and Denies sore throat Card Denies chest pain, Denies leg edema and Denies lightheadedness Resp Denies cough, Denies hemoptysis and Denies wheezing GI Denies abdominal pain, Denies melena, Denies constipation, Denies diarrhea and Denies vomiting Denies dysuria, Denies urinary frequency and Denies urinary urgency Musc Denies arthralgias, Denies joint swelling, Denies numbness and Denies tingling Skin/Breast Denies lesions and Denies rash Neuro Denies Abnormal speech present, Denies behavioral changes, Denies vertigo, Reports dizziness (upon standing), Denies headache(s), Denies loss of vision, Reports memory loss (reports that his memory is noticeably declining), Denies numbness and Denies tingling Psych Denies anxiety, Denies behavioral changes, Denies depression, Reports memory loss (reports that his memory is noticeably declining) and Denies panic attacks Hayden/Lymph Denies easy bleeding and Denies easy bruising Aller/Immun Denies wheezing Physical exam (Primary Care) Vital Signs: Last Vital Signs Temp 97.1 F 04/19/25 14:39 Pulse 71 04/19/25 14:39 BP 140/86 H 04/19/25 14:43 Pulse Ox 98 04/19/25 14:39 Oxygen Delivery Method Room Air 04/19/25 14:39 BMI result Body Mass Index 25.4 Tobacco/Smoking Status: Tobacco use Status Tobacco use date assessed 04/19/25 04/19/25 14:44 Patient Tobacco Use Status Former Tobacco user 04/19/25 14:44 e-Cigarette/Vaping Use Never Used 04/19/25 14:44 Depression Screening Interpretation: Negative Thrive Assessment: Date of Thrive Assessment Date Thrive assessed 12/06/24 04/19/25 14:44 Currently or been in a relationship where the following occur: No concerns reported Narrative Physical Exam - Vitals: Blood pressure was checked and found to be high; it was rechecked after a period of rest. Const General: healthy appearing, no acute distress, alert and awake Nutritional Appearance: well nourished Orientation/consciousness: oriented to person, oriented to place and oriented to time HENMT Ears: TM's normal bilaterally General nose exam: Normal nasal mucous membranes and turbinates present Eyes Conjunctivae: conjunctivae normal Sclerae: sclerae normal Pupils: Equal, round and reactive pupils present Neck Neck: Yes no lymphadenopathy and Yes no JVD Thyroid: Thyroid normal Carotids: no bruits Resp Effort & Inspection: normal respiratory effort and not tachypneic Auscultation: no crackles, no rales, no rhonchi and no wheezes Cardio Rate: regular rate Rhythm: abnormal rhythm irregularly irregular Heart sounds: S1 normal heart sound present, S2 normal heart sound present and no murmurs GI Palpation (GI): Soft to palpation, nontender, no hepatomegaly and no splenomegaly Auscultation: normal bowel sounds General: Yes no CVA tenderness Back/Spine/Pelvis Back: no CVA tenderness Skin General skin exam: no rashes or lesions noted and dry skin Neuro General: oriented to person, oriented to place and oriented to time Cranial nerves: Yes Equal, round and reactive pupils present Speech: No Abnormal speech present Gait exam (Neuro): Normal gait present Motor exam (neuro): 5/5 motor strength present throughout and no tremor noted Extrem Right upper extremity: full ROM Left upper extremity: full ROM Right lower extremity: full ROM; no edema Left lower extremity: full ROM; no edema Psych Mental Status: mental status grossly normal Speech and movement: Normal speech and movement present Affect: normal affect Attitude: cooperative Thought process: Normal thought process present Coding Level of Care Code Est Pt Level 4 (46945) Diagnoses Benign essential hypertension I10 Elevated PSA R97.20 Vitamin D deficiency E55.9 Constipation, unspecified constipation type K59.00 Constipation type: unspecified constipation type Asymptomatic microscopic hematuria R31.21 Hematuria type: asymptomatic microscopic Primary osteoarthritis of both knees M17.0 Osteoarthritis type: primary Adenocarcinoma of prostate C61 Nephrolithiasis N20.0 Overweight (BMI 25.0-29.9) E66.3 Hyperlipidemia, unspecified hyperlipidemia type E78.5 Hyperlipidemia type: unspecified Persistent atrial fibrillation I48.19 Memory impairment R41.3 Time Spent (min) 36 Assessment & Plan Assessment & Plan (1) Benign essential hypertension: Code(s): I10 - Essential (primary) hypertension Category: Medical Plan: Due to a high blood pressure reading during the visit, the lisinopril dosage will be increased. The patient is advised to take two 5 mg tablets to achieve a 10 mg dose until he receives the new prescription. He will follow up in one month for a blood pressure check with the nurse and to review lab results with the provider (2) Elevated PSA: Code(s): R97.20 - Elevated prostate specific antigen [PSA] Category: Medical Plan: The patient PSA 3.38 on most recent labs. Reports that his urinary symptoms has been much better. Continue duasteride 0.5 mg daily and flomax 0.4 mg at bedtime (3) Vitamin D deficiency: Code(s): E55.9 - Vitamin D deficiency, unspecified Category: Medical Plan: Corporate vitamin-D rich foods (vitamin D fortified milk, orange juice, and cereals, cod liver oil; swordfish, salmon, schwab, mackerel, tuna, trout, egg yolk and mushrooms). Safe and appropriate exposure to sunlight can also help the body produce vitamin-D. (4) Constipation: Code(s): K59.00 - Constipation, unspecified Category: Medical Qualifiers: Constipation type: unspecified constipation type Qualified Code(s): K59.00 - Constipation, unspecified Plan: Increase fiber in diet (fruits/vegetables 4-5 servings daily) Increase fluid intake and decrease caffeine/energy drinks (may cause mild dehydration) Encouraged regular exercise (e.g., biking, walking, running) (5) Hematuria: Code(s): R31.9 - Hematuria, unspecified Category: Medical Qualifiers: Hematuria type: asymptomatic microscopic Qualified Code(s): R31.21 - Asymptomatic microscopic hematuria Plan: Trace of blood in urine. Patient has a known kidney stone that has been monitored. He also has adenocarcinoma of the prostate and he is on Eliquis 2.5 mg b.i.d.. All increases the patient chance for bleeding. We will continue to monitor. Discussed with the patient to report any signs of bleeding to us. (6) Osteoarthritis of knees, bilateral: Code(s): M17.0 - Bilateral primary osteoarthritis of knee Category: Medical Qualifiers: Osteoarthritis type: primary Qualified Code(s): M17.0 - Bilateral primary osteoarthritis of knee Plan: Reports that pain is tolerable and resolves with Tylenol OTC (7) Adenocarcinoma of prostate: Code(s): C61 - Malignant neoplasm of prostate Category: Medical Plan: The patient is under active surveillance, PSA every 4 months, continue on Avodart 0.5 mg daily Follow up with Urology as scheduled (8) Nephrolithiasis: Code(s): N20.0 - Calculus of kidney Category: Medical Plan: The patient was noted to have 0.5 cm echogenic calyceal stone in the region of the mid to lower pole of the right kidney. The left kidney with no calculi, lesions, and/or hydronephrosis. Follow up with Urology as scheduled (9) Overweight (BMI 25.0-29.9): Code(s): E66.3 - Overweight Category: Medical Plan: Discussed lifestyle modifications including dietary changes and physical activity (10) Hyperlipidemia: Code(s): E78.5 - Hyperlipidemia, unspecified Category: Medical Qualifiers: Hyperlipidemia type: unspecified Qualified Code(s): E78.5 - Hyperlipidemia, unspecified Plan: Triglycerides 183, LDL 123, HDL 35 on previous labs Discussed lifestyle modifications including dietary changes and physical activity We will continue to monitor lipid panel (11) Persistent atrial fibrillation: Code(s): I48.19 - Other persistent atrial fibrillation Category: Medical Plan: He is symptomatic. Transient dizziness upon standing but seemed to be more related to fluid status. Continue apixaban 2.5 mg b.i.d. (12) Memory impairment: Code(s): R41.3 - Other amnesia Category: Medical Plan: In light of the patient's concern about his memory, a referral to a neurologist will be placed for further evaluation. A letter will be written to support the need for his SPORTING GOODS SALESPERSON hours increased. Reports that his SPORTING GOODS SALESPERSON helps him to cook, clean and organized his day. Plan Discussion Notes We discussed the patient's concerns regarding his memory. I explained that I will write a letter to support an increase in his SPORTING GOODS SALESPERSON hours and place a referral to a neurologist for further evaluation of his memory issues. We also addressed his high blood pressure reading by increasing his lisinopril dose to 10 mg daily. I instructed him to schedule a follow-up appointment in one month to check his blood pressure and review his lab work, which he should have done beforehand. I also reminded him to get his pneumonia vaccine. Patient Instructions - Increase your lisinopril dose to 10 mg daily. - You can take two of your current 5 mg lisinopril tablets until you get the new prescription for 10 mg tablets. - Please get your blood work done before your next appointment. - Schedule a follow-up appointment in one month to have your blood pressure checked by the nurse and to review your labs with the doctor. - A referral will be made for you to see a neurologist to help with your memory concerns. - Remember to get your pneumonia vaccine. Orders: Orders Complete Blood Count Auto Diff 4 Months E55.9 - Vitamin D deficiency, unspecified, E66.3 - Overweight, E78.5 - Hyperlipidemia, unspecified, I10 - Essential (primary) hypertension, I48.19 - Other persistent atrial fibrillation, N20.0 - Calculus of kidney, R31.21 - Asymptomatic microscopic hematuria, R97.20 - Elevated prostate specific antigen [PSA] Comprehensive [place]. Panel Fast 4 Months E55.9 - Vitamin D deficiency, unspecified, E66.3 - Overweight, E78.5 - Hyperlipidemia, unspecified, I10 - Essential (primary) hypertension, I48.19 - Other persistent atrial fibrillation, N20.0 - Calculus of kidney, R31.21 - Asymptomatic microscopic hematuria, R97.20 - Elevated prostate specific antigen [PSA] Lipid Panel 4 Months E55.9 - Vitamin D deficiency, unspecified, E66.3 - Overweight, E78.5 - Hyperlipidemia, unspecified, I10 - Essential (primary) hypertension, I48.19 - Other persistent atrial fibrillation, N20.0 - Calculus of kidney, R31.21 - Asymptomatic microscopic hematuria, R97.20 - Elevated prostate specific antigen [PSA] UA CC w/rflx Micro + Cult 4 Months E55.9 - Vitamin D deficiency, unspecified, E66.3 - Overweight, E78.5 - Hyperlipidemia, unspecified, I10 - Essential (primary) hypertension, I48.19 - Other persistent atrial fibrillation, N20.0 - Calculus of kidney, R31.21 - Asymptomatic microscopic hematuria, R97.20 - Elevated prostate specific antigen [PSA] TSH reflex Free T4 4 Months E55.9 - Vitamin D deficiency, unspecified, E66.3 - Overweight, E78.5 - Hyperlipidemia, unspecified, I10 - Essential (primary) hypertension, I48.19 - Other persistent atrial fibrillation, N20.0 - Calculus of kidney, R31.21 - Asymptomatic microscopic hematuria, R97.20 - Elevated prostate specific antigen [PSA] Vitamin D 25-OH Total 4 Months E55.9 - Vitamin D deficiency, unspecified, E66.3 - Overweight, E78.5 - Hyperlipidemia, unspecified, I10 - Essential (primary) hypertension, I48.19 - Other persistent atrial fibrillation, N20.0 - Calculus of kidney, R31.21 - Asymptomatic microscopic hematuria, R97.20 - Elevated prostate specific antigen [PSA] Referrals Neurology Referral R41.3 - Other amnesia Medications: New lisinopril 10 mg PO DAILY 30 tabs 3RF Discontinued lisinopril Discontinued Reason: Doctor's Order 5 mg PO DAILY 90 tabs 1RF I10 - Essential (primary) hypertension
[2025-04-19 14:39] VITALS: BP 150/100; PULSE 71; TEMP 36.2; O2SAT 98; BMI 25.4
[2025-04-19 14:43] VITALS: BP 140/86
== END 2025-04-19 15:12 | disposition home or self-care (01) ==
LOC: HO.HMCH 14:12
PROVIDERS: PCP Internal Medicine
DX: I10 Essential (primary) hypertension (principal); C61 Malignant neoplasm of prostate; I48.19 Other persistent atrial fibrillation; R97.20 Elevated prostate specific antigen [PSA]; E55.9 Vitamin D deficiency, unspecified; K59.00 Constipation, unspecified; R31.21 Asymptomatic microscopic hematuria; M17.0 Bilateral primary osteoarthritis of knee; N20.0 Calculus of kidney; E66.3 Overweight; E78.5 Hyperlipidemia, unspecified; R41.3 Other amnesia

== ENCOUNTER → 2025-04-19 14:12 | Outpatient (BNVA) | payer MEDICARE, SELFPAY | PROVIDERS: PCP Internal Medicine | DX: I10 Essential (primary) hypertension (principal); R97.20 Elevated prostate specific antigen [PSA]; E55.9 Vitamin D deficiency, unspecified; K59.00 Constipation, unspecified; R31.21 Asymptomatic microscopic hematuria; M17.0 Bilateral primary osteoarthritis of knee; C61 Malignant neoplasm of prostate; N20.0 Calculus of kidney; E66.3 Overweight; E78.5 Hyperlipidemia, unspecified; I48.19 Other persistent atrial fibrillation; R41.3 Other amnesia; Z79.899 Other long term (current) drug therapy | CPT/HCPCS: 99212 ==

== ENCOUNTER 2025-04-22 10:56 | Emergency (ER) | payer MEDICARE, SELFPAY ==
--- NOTE | ~2025-04-22 | XR_ITS ---
EXAMINATION: XR CHEST CLINICAL INFORMATION: HTN COMPARISON: February 04, 2017. TECHNIQUE: PA and lateral views. FINDINGS: Hyperinflated lungs. No consolidation, pleural fissure pneumothorax. Cardiac mediastinal silhouette size is normal with a round cardiac apex. Calcified plaque thoracic aortic arch. Multilevel spondylosis most in the mid thoracic spine. XR/XR chest 2V IMPRESSION: No acute airspace disease. Hypertensive cardiomyopathy cannot be excluded. Mid thoracic spondylosis. Electronically signed by: Ramos Hendrix MD 04/22/2025 12:32 PM EST RP
[2025-04-22 11:37] VITALS: BP 176/99; PULSE 73; RESP 16; TEMP 36.6; O2SAT 98; BMI 25.4
--- NOTE | 2025-04-22 11:40 | ED.GENADULT ---
HPI - General Adult General Chief complaint: General Medical Stated complaint: high bp Time Seen by Provider: 04/22/25 14:21 Source: patient and old records reviewed Mode of arrival: ambulatory Limitations: no limitations History of Present Illness ED Provider: MARY HPI narrative: 80-year-old male with past medical history of hyperlipidemia, renal colic, prostate cancer, urinary retention, AFib, hypertension who was recently increased to 10 mg lisinopril on Tuesday. He checks his blood pressure in the morning and noted a systolic in the 190s and diastolic 100. He had no symptoms but he did scare him. He denies any chest pain, headache, numbness, weakness, confusion. He just had his medication adjusted. MD complaint: HTN Onset (ago): hour(s) (This morning) Severity: moderate Pain Consistency: constant Relieving factors: none Exacerbating factors: none Associated symptoms: denies other symptoms Treatments prior to arrival: none Related Data Home Medications ?Medication ?Instructions ?Recorded ?Confirmed multivitamin with minerals 1 cap PO DAILY 07/11/24 04/19/25 Previous Rx's ?Medication ?Instructions ?Recorded blood pressure monitor (Blood #1 ea 05/16/23 Pressure Kit) Eliquis 2.5 mg tablet (apixaban) 2.5 mg PO BID 30 days #60 tabs 03/09/25 dutasteride 0.5 mg capsule 0.5 mg PO DAILY 90 days #90 caps 03/30/25 tamsulosin 0.4 mg capsule 0.4 mg PO BEDTIME 90 days #90 caps 04/03/25 lisinopril 10 mg tablet 10 mg PO DAILY #30 tabs 04/19/25 Allergies Allergy/AdvReac Type Severity Reaction Status Date / Time No Known Allergies (No Known Allergy Verified 04/22/25 11:40 Allergies*) Review of Systems Review of Systems: Yes all other systems are reviewed and are negative PMFSH Past Medical History Attestation statement: The following information was validated with the patient. Source: old records reviewed Medical History Hyperlipidemia Overweight (BMI 25.0-29.9) Vitamin D deficiency Osteoarthritis of knees, bilateral Persistent atrial fibrillation Benign essential hypertension Overactive bladder Benign prostatic hyperplasia Surgical History History of colonoscopy History of hernia surgery Family History Family History Mother No problems noted. Father No problems noted. Social History Social History Housing: Apartment Alcohol intake: never Patient Tobacco Use Status: Former Tobacco user e-Cigarette/Vaping Use: Never Used Second Hand Smoke Exposure: Yes Advance Directives: Yes Advance Directives Information Provided: Yes Advance Directives on File: No service: No Current occupational status: retired Cognitive needs: No Hearing needs: No Vision needs: Yes Physical Exam ED Vital Signs: Vital Signs - 24 hr 04/22/25 11:37 Temperature 98 F Pulse Rate 73 Respiratory Rate 16 Blood Pressure 176/99 H Pulse Oximetry 98 Oxygen Delivery Method Room Air BMI result Body Mass Index 25.4 Appearance: Alert. Oriented X3. No acute distress. Eyes: Pupils equal, round and reactive to light. ENT: Pharynx normal. Neck: Normal inspection. Neck supple. CVS: Normal heart rate and rhythm. Pulses normal. Respiratory: No respiratory distress. Breath sounds normal. Abdomen: Soft and nontender. Skin: Skin warm and dry. Normal skin color. Normal skin turgor. Extremities: No lower extremity edema. No calf ttp Neuro: Oriented X 3. No motor deficit. No sensory deficit. CN2-12 intact. Steady gait Course Course Course Narrative: Rapid medical examination performed in triage by Jaci Watson PA-C: Patient is an 80 year old male presenting to the emergency department with elevated blood pressure. Patient states that his blood pressure has been elevated and he is concerned about it. Patient denies any other concerns. Detailed physical exam and review of systems are deferred to the fiberglass pipe covering supervisor. EKG, labs, imaging ordered. Patient placed back in the waiting room pending room availability and results. Medical Decision Making Medical Decision Making MDM Narrative: 80-year-old male with past medical history of hyperlipidemia, renal colic, prostate cancer, urinary retention, AFib, hypertension here with complaint of asymptomatic hypertension. Of note he just had his meds increased on Tuesday it is not been weak. He has no headache, neuro symptoms, chest pain. At this time going to repeat his blood pressure and reassure him to follow up with his primary care on Tuesday to keep a log. He has no neuro deficits on exam. I believe he can be discharged home with PCP follow-up given asymptomatic hypertension. Differential Diagnosis Differential Diagnoses: The differential diagnosis associated with the presentation includes Chronic hypertension Admission/Observation Consideration of admission/observation: Escalation of care including admission/observation considered Is no signs of end-organ damage the discharge home and monitor blood pressure will follow up with PCP to assess adjustment on Tuesday Lab Data MDM Lab Attestation statement: I reviewed the patient's lab results. 04/22/25 12:04/22/25 12: Labs: Lab Results 04/22/25 Range/Units 12:01 WBC 6.5 (4.8-10.8) X10*3/uL RBC 5.45 (4.60-5.80) X10*6/uL Hgb 15.6 (14.0-18.0) g/dl Hct 47.5 (42.0-52.0) % MCV 87.2 (80.0-98.0) fL MCH 28.6 (27.0-33.0) pg MCHC 32.8 (31.0-36.0) g/dl RDW 15.2 (11.0-16.0) % Plt Count 195 (160-400) X10*3/uL MPV 9.6 (9.4-12.4) fL Immature Gran % (Auto) 0.2 (0.0-0.4) % Neut % (Auto) 64.8 (45-73) % Lymph % (Auto) 20.6 (20-40) % [place] % (Auto) 8.8 (2-11) % Eos % (Auto) 4.8 H (0-4) % Baso % (Auto) 0.8 (0-2) % Lymph # (Auto) 1.3 (1.2-4.9) X10*3/uL [place] # (Auto) 0.6 (0.1-1.2) X10*3/uL Eos # (Auto) 0.3 (0.0-0.4) X10*3/uL Baso # (Auto) 0.1 (0.0-0.2) X10*3/uL Abs Immat Gran (auto) 0.01 (0.00-0.03) X10*3/uL Absolute Neuts (auto) 4.2 (2.0-8.3) x10*3/uL Absolute Nucleated RBC 0.000 (0.0-0.012) X10*3/uL Nucleated RBC % (auto) 0.0 (0.0-0.2) /100WBC Sodium 142 (135-145) mmol/L Potassium 4.6 (3.3-5.1) mmol/L Chloride 107 (96-108) mmol/L Carbon Dioxide 27 (22-29) mmol/L Anion Gap 13 (12-20) BUN 15 (9-16) mg/dL Creatinine 0.97 (0.5-1.4) mg/dL Estim Creat Clear Calc 59.7 Estimated GFR > 60 Random Glucose 98 (60-115) mg/dL Calcium 9.6 (8.4-10.2) mg/dL Magnesium 2.2 (1.6-2.6) mg/dL Total Bilirubin 1.1 H (0.0-1.0) mg/dL AST 30 (5-37) U/L ALT 25 (0-40) U/L Alkaline Phosphatase 66 (39-117) U/L Troponin I High Sens 3.1 (<3.5-35.0) ng/L Total Protein 7.7 (6.5-8.0) g/dL Albumin 4.4 (3.5-5.0) g/dL Independent Interpretation I performed an independent interpretation of an: EKG Interpretation: Rate: 70 Rhythm: afib [place]: left Normal P waves. Normal MIROSLAVA. Normal QRS complex. ST T wave : no DANGELO, inverted t waves III qTC: 423 prior studies: No acute ischemia The study has been interpreted contemporaneously by me. . Independent Historian Clinical information obtained from an independent historian. History obtained from or confirmed by: Other External Record Review External record reviewed: Outpatient record Discharge Plan Discharge Clinical Impression: Benign essential hypertension Patient Disposition: Home, Self-Care Instructions: Chronic Hypertension (ED) Additional Instructions: at this time your labs and EKG are reassuring continue to take your blood pressure medication it may take till Tuesday to have a full effect return for chest pains, severe headaches, numbness or weakness if your blood pressure goes above 190/100s and you have symptoms you should seek medical care Prescriptions: No Action (DME) blood pressure monitor [Blood Pressure Kit] Kit See Rx Instructions .ROUTE .MEDSUPPLY Qty: 1 0RF Rx Instructions: As directed Eliquis 2.5 mg tablet 2.5 mg PO BID 30 Days Qty: 60 3RF dutasteride 0.5 mg capsule 0.5 mg PO DAILY 90 Days Qty: 90 0RF tamsulosin 0.4 mg capsule 0.4 mg PO BEDTIME 90 Days Qty: 90 1RF multivitamin with minerals Capsule 1 cap PO DAILY lisinopril 10 mg tablet 10 mg PO DAILY Qty: 30 3RF Print Language: Senegalese
--- NOTE | 2025-04-22 11:41 | ECG_ITS ---
Test Reason : HTN Blood Pressure : */* mmHG Vent. Rate : 70 BPM Atrial Rate : * BPM P-R Int : * ms QRS Dur : 64 ms QT Int : 392 ms P-R-T Axes : * -30 4 degrees QTcB Int : 423 ms Atrial fibrillation Left axis deviation Abnormal ECG When compared with ECG of 10-Oct-2024 08:38, No significant change was found Referred By: Jaci Watson Electronically Signed By: Emmett Mays
[2025-04-22 12:12] LABS: MANUAL DIFF FLAG NO
[2025-04-22 12:16] LABS: Hematocrit 47.5 % (42.0-52.0); Hemoglobin 15.6 g/dl (14.0-18.0); Imm Gran Abs Auto 0.01 X10*3/uL (0.00-0.03); Imm Gran Pct Auto 0.2 % (0.0-0.4); Lymphocytes Absolute Auto 1.3 X10*3/uL (1.2-4.9); Mean Corpuscular HGB Conc 32.8 g/dl (31.0-36.0); Mean Corpuscular Hemoglobin 28.6 pg (27.0-33.0); Mean Corpuscular Volume 87.2 fL (80.0-98.0); NRBC Abs Auto 0.000 X10*3/uL (0.0-0.012); NRBC Pct Auto 0.0 /100WBC (0.0-0.2); Platelet Count 195 X10*3/uL (160-400); Red Blood Count 5.45 X10*6/uL (4.60-5.80); White Blood Count 6.5 X10*3/uL (4.8-10.8)
[2025-04-22 12:26] LABS: Alanine Aminotransferase 25 U/L (0-40); Albumin Level 4.4 g/dL (3.5-5.0); Alkaline Phosphatase 66 U/L (39-117); Anion Gap 13 (12-20); Aspartate Amino Transferase 30 U/L (5-37); Blood Urea Nitrogen 15 mg/dL (9-16); Calcium 9.6 mg/dL (8.4-10.2); Carbon Dioxide 27 mmol/L (22-29); Chloride 107 mmol/L (96-108); Creatinine Clr Calc Pharmacy 59.7; Estimated Glomerular Filt Rate > 60; Magnesium 2.2 mg/dL (1.6-2.6); Potassium 4.6 mmol/L (3.3-5.1); Sodium 142 mmol/L (135-145); Total Protein 7.7 g/dL (6.5-8.0)
[2025-04-22 12:34] LABS: Troponin-I High Sensitivity 3.1 ng/L (<3.5-35.0)
[2025-04-22 14:40] VITALS: BP 164/100; PULSE 0; RESP 20; TEMP -17.7; TEMP 0; O2SAT 0
== END 2025-04-22 14:41 | disposition home or self-care (01) ==
PROVIDERS: Physician Assistant Medical; Emergency Provider Emergency Medicine; PCP Internal Medicine
DX: I10 Essential (primary) hypertension (principal); E78.5 Hyperlipidemia, unspecified; I48.19 Other persistent atrial fibrillation; Z79.01 Long term (current) use of anticoagulants; Z79.899 Other long term (current) drug therapy
CPT/HCPCS: 36415; 71046; 80053; 83735; 84484; 85025; 93005; 99283

== ENCOUNTER → 2025-04-22 11:41 | Outpatient (BNV) | payer MEDICARE, SELFPAY | PROVIDERS: Emergency Provider Emergency Medicine; PCP Internal Medicine; Visit Provider Internal Medicine Cardiovascular Disease | DX: I48.91 Unspecified atrial fibrillation (principal) | CPT/HCPCS: 93010 ==

== ENCOUNTER → 2025-04-22 11:41 | Outpatient (BNV) | payer MEDICARE, SELFPAY | PROVIDERS: PCP Internal Medicine; Visit Provider Radiology Diagnostic Radiology | DX: M47.814 Spondylosis without myelopathy or radiculopathy, thoracic region (principal) | CPT/HCPCS: 71046 ==